=== PATIENT | female | born 1940 | race Two or more races ===

== ENCOUNTER 2018-10-17 13:00 | Observation (INO) | payer OTHER ==
[2018-10-17 13:06] VITALS: BMI 28.6
--- NOTE | 2018-10-17 13:44 | PDOC ---
History of Present Illness - History of Present Illness Initial Comments: 10/17/18 13:20 The patient is a 78 year old female with a PMH of leukemia, HTN, HLD, DM, CKD who presents with a 3 day h/o weakness, shortness of breath. Son @ bedside assists in history notes patient has 3 day h/o low blood pressure (90's/50's-60' s) with evaluation by her PMD, Dr. Pérez yesterday. Amlodipine discontinued and patient started on Candesartan. Also notes 25 pound weight loss over the last 1 year. Patient received call from Dr. Pérez's office today that patient had a low Hb and patient was instructed to come to the ED for further evaluation including transfusion. Patient denies active chest pain, lightheadedness, palpitations as well as bloody stools. NKDA Surgical: R knee replacement, abdominal hernia repair, C/S PMD: Dr. Pérez Oncology: Dr. Chandra <Annabelle Mcnulty - Last Filed: 10/17/18 17:02> <Lexie Buitrago - Last Filed: 10/17/18 18:29> - General Chief Complaint: Revisit, Lab Variance Stated Complaint: ANEMIA/LOW BP Time Seen by Provider: 10/17/18 13:09 Past History - Past Medical History Anemia: Yes COPD: No Diabetes: Yes HTN: Yes Hypercholesterolemia: Yes - Surgical History Abdominal Surgery: Yes (hernia) - Suicide/Smoking/Psychosocial Hx Smoking History: Never smoked Information on smoking cessation initiated: No Hx Alcohol Use: No Drug/Substance Use Hx: No <Annabelle Mcnulty - Last Filed: 10/17/18 17:02> <Lexie Buitrago - Last Filed: 10/17/18 18:29> - Past Medical History Allergies/Adverse Reactions: Allergies Allergy/AdvReac Type Severity Reaction Status Date / Time No Known Allergies Allergy Verified 10/17/18 13:06 Home Medications: Ambulatory Orders Aspirin 81 mg PO BID 10/17/18 Atorvastatin Ca [Lipitor] 40 mg PO HS 10/17/18 Candesartan Cilexetil [Atacand (Nf) -] 8 mg PO DAILY 10/17/18 Cholecalciferol (Vitamin D3) [Vitamin D3 -] 50,000 unit PO WEEKLY 10/17/18 Cyanocobalamin Vit B-12 Inj. [Redisol] 1,000 mcg IM MONTHLY 10/17/18 Duloxetine HCl [Cymbalta] 60 mg PO DAILY 10/17/18 Esomeprazole Magnesium [Nexium 24Hr] 40 mg PO DAILY 10/17/18 Ezetimibe [Zetia] 10 mg PO HS 10/17/18 Ferrous Gluconate [Fergon -] 324 mg PO DAILY 10/17/18 Glipizide [Glipizide ER] 2.5 mg PO DAILY 10/17/18 Icosapent Ethyl [Vascepa] 1 gm PO DAILY 10/17/18 Metformin HCl [Metformin HCl ER] 500 mg PO DAILY 10/17/18 Metoprolol Succinate 25 mg PO DAILY 10/17/18 Pramipexole Di-HCl [Mirapex] 0.5 mg PO BID 10/17/18 Sitagliptin Phosphate [Januvia] 50 mg PO DAILY 10/17/18 Solifenacin Succinate [Vesicare -] 5 mg PO DAILY 10/17/18 Review of Systems - Review of Systems Constitutional: No: Chills, Fever HEENTM: No: Blurred Vision, Recent change in vision Respiratory: Yes: Shortness of Breath. No: Cough Cardiac (ROS): Yes: Lightheadedness. No: Chest Pain, Palpitations, Syncope ABD/GI: No: Blood Streaked Bowels, Constipated, Diarrhea, Nausea, Vomiting <Hamlet,Annabelle - Last Filed: 10/17/18 17:02> *Physical Exam - Vital Signs Last Vital Signs Temp Pulse Resp BP Pulse Ox 98.2 F 75 18 159/45 L 99 10/17/18 13:04 10/17/18 13:04 10/17/18 13:04 10/17/18 13:04 10/17/18 13:04 - Physical Exam General Appearance: Yes: Nourished, Appropriately Dressed HEENT: positive: Normal Voice, Hearing Grossly Normal Neck: positive: Trachea midline, Supple Respiratory/Chest: positive: Lungs Clear, Normal Breath Sounds. negative: Labored Respiration, Rapid RR Cardiovascular: positive: S1, S2, Murmur Vascular Pulses: Dorsalis-Pedis (R): 2+, Doralis-Pedis (L): 2+ Gastrointestinal/Abdominal: positive: Normal Bowel Sounds, Soft Extremity: positive: Normal Capillary Refill, Normal Inspection Integumentary: positive: Normal Color, Dry, Warm Neurologic: positive: tool crib lead II-XII NML intact, Fully Oriented, Alert <Annabelle Mcnulty - Last Filed: 10/17/18 17:02> - Vital Signs Last Vital Signs Temp Pulse Resp BP Pulse Ox 98.2 F 75 18 159/45 L 99 10/17/18 13:04 10/17/18 13:04 10/17/18 13:04 10/17/18 13:04 10/17/18 13:04 <Lexie Buitrago - Last Filed: 10/17/18 18:29> Medical Decision Making - Medical Decision Making 10/17/18 13:44 78 year old female with shortness of breath, weakness and outside Hb reading of 6.0. VS unremarkable. PLAN: Will obtain T&S as patient has no history in EMR as well as FOBT to evaluate for GI bleed. Reassess. 10/17/18 16:51 Patient consented for transfusion FOBT pending 10/17/18 17:01 Case d/w Dr. Kelley - will admit for observation. <Annabelle Mcnulty - Last Filed: 10/17/18 17:02> - Medical Decision Making of note guaiac is positive, occult GIB vs malignancy with weight loss history protonix transfusion see attg note. 10/17/18 18:29 <Lexie Buitrago - Last Filed: 10/17/18 18:29> *DC/Admit/Observation/Transfer <Annabelle Mcnulty - Last Filed: 10/17/18 17:02> - Discharge Dispostion Decision to Admit order: Yes Decision to Admit order Date/Time: Decision to Admit Order Category Date Time Status Decision to Admit to Hospital Routine Admission 10/17/18 16:34 Ordered <Lexie Buitrago - Last Filed: 10/17/18 18:29> Diagnosis at time of Disposition: Anemia, Weakness - Discharge Dispostion Condition at time of disposition: Fair
--- NOTE | 2018-10-17 15:54 | PDOC ---
Documentation entered by Tish Hightower SCRIBE, acting as scribe for Lexie Buitrago MD. Lexie Buitrago MD: This documentation has been prepared by the zan, Tish Hightower SCRIBE, under my direction and personally reviewed by me in its entirety. I confirm that the documentation accurately reflects all work, treatment, procedures, and medical decision making performed by me. Attending Attestation - Resident Resident Name: Annabelle Mcnulty - ED Attending Attestation I have performed the following: I have examined & evaluated the patient, The case was reviewed & discussed with the resident, I agree w/resident's findings & plan - HPI HPI: 10/17/18 15:17 The patient is a 78 year old female with a significant past medical history of hypertension, hyperlipidemia, diabetes, CKD, and leukemia who presents to the emergency department with increased pallor, dizziness, shortness of breath and weakness for about 4 days. The patient states that she was seen by her PMD yesterday by which her Amlodipine meds were discontinued and labs were drawn. The patient states that her resulted blood work showed acute on chronic anemia, hemoglobin of 6.0, Hct 19 and was advised to come to the ED. Also notes 25 pound weight loss over the last 1 year. unsure of last colonoscopy, The patient denies any fever, chills, nausea, vomiting, diarrhea, constipation or urinary symptoms. She denies any chest pain, palpitations. GI: Dr Renee PCP: Dr Boudreaux. 10/17/18 16:37 - Physicial Exam PE: 10/17/18 15:54 Agree with the resident's HPI and PE as documented in the electronic medical record. NAD, well appearing, PERRL, EOMI, pale conjunctiva, anicteric; neck supple. lungs clear, Regular rate, soft holosystolic murmur. abdomen soft nontender. EMANUEL x4, no focal neuro deficits. No peripheral edema. +pallor rectal exam by resident - brown stool. guaiac positive. 10/17/18 16:33 10/17/18 18:27 10/17/18 18:27 - Medical Decision Making 10/17/18 16:36 History of physical examination as documented. Vital signs are normal, blood pressure is normotensive here. While in the outpatient setting she did have episode of hypotension as well as new onset of anemia. Patient denies any bloody stools and is unclear her last colonoscopy. Notably she is symptomatic with shortness of breath, dizziness and increased pallor over the last 3-4 days. Of note she also has 25 pound weight loss over the past year. Outpatient laboratory results from today were reviewed, new onset anemia is noted with hemoglobin of 6 and hematocrit of 19, iron panel is pending. IV line is placed by me, consented for 2 units of packed red blood cell transfusion for acute symptomatically anemia area will admit her observation of and workup of this anemia additional labs with normal coags. neg trop. EKG guaiac positive, +occult GIB. protonix ordered. likely lower with weight loss history, ?malignancy. admitting to medical service s/o to Dr Kelley transfusion, anemia w/u, GIB, and inpatient consults for definitive management. 10/17/18 18:25 10/17/18 18:28
--- NOTE | 2018-10-17 17:01 | HP ---
Admitting History and Physical - Primary Care Physician PCP: Nathen Pérez - Admission Chief Complaint: came in for shortness of breath History of Present Illness: The patient is a 78 year old female with a PMH of leukemia, HTN, HLD, DM, CKD who presents with a 3 day h/o weakness, shortness of breath. Son @ bedside assists in history notes patient has 3 day h/o low blood pressure (90's/50's-60' s) with evaluation by her PMD, Dr. Pérez yesterday. Amlodipine discontinued and patient started on Candesartan. Also notes 25 pound weight loss over the last 1 year. Patient received call from Dr. Pérez's office today that patient had a low Hb and patient was instructed to come to the ED for further evaluation including transfusion. per patient she has not had a pattetie and cannot eat plus she feels weak and tired went to her PMD who did blod work told her h/h low sent to the ER also her legs have been swelling amlodipine stopped no palpitions no chest pain History Source: Medical Record - Past Medical History Cardiovascular: Yes: HTN, Hyperlipdemia Renal/: Yes: Other (CKD) Endocrine: Yes: Diabetes Mellitus - Smoking History Smoking history: Never smoked - Alcohol/Substance Use Hx Alcohol Use: No Home Medications - Allergies Allergies/Adverse Reactions: Allergies Allergy/AdvReac Type Severity Reaction Status Date / Time No Known Allergies Allergy Verified 10/17/18 13:06 Review of Systems - Review of Systems Constitutional: reports: Unintentional Wgt. Loss, Weakness Physical Examination Vital Signs: Vital Signs Temperature 98.2 F 10/17/18 13:04 Pulse Rate 75 10/17/18 13:04 Respiratory Rate 18 10/17/18 13:04 Blood Pressure 159/45 L 10/17/18 13:04 O2 Sat by Pulse Oximetry (%) 99 10/17/18 13:04 Constitutional: Yes: Calm Eyes: Yes: Other (pallor) Cardiovascular: Yes: Regular Rate and Rhythm, S1, S2 Respiratory: Yes: CTA Bilaterally Gastrointestinal: Yes: Normal Bowel Sounds, Soft Edema: Yes Neurological: Yes: Alert, Oriented Problem List - Problems (1) Anemia Assessment/Plan: prbc 2 units iwth 40mg iv lasix in btw gi and heme consult given weight loss will get tumor marker iron panel protonix stool occult blood NPO for now tiill stool occult is checked doppler of legs to r/o dvt scd for dvt till stool occult done Code(s): D64.9 - ANEMIA, UNSPECIFIED (2) HTN (hypertension) Assessment/Plan: no amoldipine given leg edema Code(s): I10 - ESSENTIAL (PRIMARY) HYPERTENSION
[2018-10-17 17:04] LABS: INR 0.95 (0.83-1.09); PROTHROMBIN TIME (PATIENT) 11.2 SEC (9.7-13.0)
[2018-10-17 17:07] LABS: ACTIVATED PTT 30.4 SECONDS (25.2-36.5)
[2018-10-17] MEDS ORDERED: ACETAMINOPHEN 325 MG TABLET (FP) PO PRN (17:17)
[2018-10-17] MEDS ORDERED: FUROSEMIDE 40 MG/4 ML INJECTABLE VIAL IVPUSH ONE (17:21)
[2018-10-17] MEDS ORDERED: METOPROLOL TARTRATE 5 MG/5 ML VIAL IVPUSH PRN (17:24)
[2018-10-17] MEDS ORDERED: PANTOPRAZOLE SODIUM 40 MG VIAL IVPUSH ONE (18:27)
[2018-10-17] MEDS ORDERED: PANTOPRAZOLE SODIUM 40 MG VIAL ONE ×2 (18:53→21:33)
[2018-10-17] MEDS: PANTOPRAZOLE SODIUM 40 MG VIAL IVPUSH SCH (21:51)
--- NOTE | 2018-10-18 07:32 | CON.GI ---
Consult - History of Present Illness History of Present Illness: GI CONSULT DICTATED - CLEAR LIQUID DIET - IF H/H STABLE TOMORROW ADVANCE TO FULL LIQUID - PPI 40 MG IV QD - AVOID NSAID - HEME EVALUATION - WILL F/U WITH DR. JANSEN REGARDING PREVIOUS EGD / COLONOSCOPY FINDINGS - MAY NEED REPEAT EGD SATURDAY TO EXCLUDE PUD. - Past Medical History Cardio/Vascular: Yes: HTN, Hyperlipdemia Renal/: Yes: Other (CKD) Endocrine: Yes: Diabetes Mellitus - Alcohol/Substance Use Hx Alcohol Use: No - Smoking History Smoking history: Never smoked Home Medications - Allergies Allergies/Adverse Reactions: Allergies Allergy/AdvReac Type Severity Reaction Status Date / Time No Known Allergies Allergy Verified 10/17/18 13:06 - Home Medications Home Medications: Ambulatory Orders Aspirin 81 mg PO BID 10/17/18 Atorvastatin Ca [Lipitor] 40 mg PO HS 10/17/18 Candesartan Cilexetil [Atacand (Nf) -] 8 mg PO DAILY 10/17/18 Cholecalciferol (Vitamin D3) [Vitamin D3 -] 50,000 unit PO WEEKLY 10/17/18 Cyanocobalamin Vit B-12 Inj. [Redisol] 1,000 mcg IM MONTHLY 10/17/18 Duloxetine HCl [Cymbalta] 60 mg PO DAILY 10/17/18 Esomeprazole Magnesium [Nexium 24Hr] 40 mg PO DAILY 10/17/18 Ezetimibe [Zetia] 10 mg PO HS 10/17/18 Ferrous Gluconate [Fergon -] 324 mg PO DAILY 10/17/18 Glipizide [Glipizide ER] 2.5 mg PO DAILY 10/17/18 Icosapent Ethyl [Vascepa] 1 gm PO DAILY 10/17/18 Metformin HCl [Metformin HCl ER] 500 mg PO DAILY 10/17/18 Metoprolol Succinate 25 mg PO DAILY 10/17/18 Pramipexole Di-HCl [Mirapex] 0.5 mg PO BID 10/17/18 Sitagliptin Phosphate [Januvia] 50 mg PO DAILY 10/17/18 Solifenacin Succinate [Vesicare -] 5 mg PO DAILY 10/17/18 Physical Exam-GI Vital Signs: Vital Signs Temperature 98.3 F 10/18/18 02:00 Pulse Rate 71 10/18/18 02:00 Respiratory Rate 18 10/18/18 02:00 Blood Pressure 125/55 L 10/18/18 02:00 O2 Sat by Pulse Oximetry (%) 99 10/17/18 23:15 Labs: INR, PTT INR 0.95 (0.83-1.09) 10/17/18 16:28
[2018-10-18 07:51] LABS: HEMATOCRIT 24.6 % (32.4-45.2); MCH 27.3 pg (25.7-33.7); MCHC 32.5 g/dl (32.0-36.0); MEAN CELL VOLUME 84.1 fl (80-96); MEAN PLT VOLUME 9.4 fl (7.5-11.1); PLATELET COUNT 219 K/MM3 (134-434); RBC 2.93 M/mm3 (3.60-5.2); RDW 15.5 % (11.6-15.6); WHITE BLOOD COUNT 10.2 K/mm3 (4.0-10.0)
[2018-10-18 08:44] LABS: ALBUMIN 3.2 g/dl (3.4-5.0); BILIRUBIN,TOTAL 1.2 mg/dL (0.2-1); CALCIUM 8.8 mg/dL (8.5-10.1); CREATININE 0.7 mg/dL (0.55-1.3); MAGNESIUM 2.1 mg/dL (1.8-2.4); PHOSPHOROUS 3.8 mg/dL (2.5-4.9); POTASSIUM 3.9 mmol/L (3.5-5.1); TOT PROT 5.6 g/dl (6.4-8.2)
[2018-10-18] MEDS: PANTOPRAZOLE SODIUM 40 MG VIAL IVPUSH SCH ×2 (10:19→22:51)
[2018-10-18] MEDS ORDERED: DEXTROSE 5%-NORMAL SALINE 1,000 ML IV SCH (14:00)
--- NOTE | 2018-10-18 14:46 | CONSULT ---
Consult - text type - Consultation Consultation Note: The patient is a 78 year old female with a significant past medical history of hypertension, hyperlipidemia, diabetes, CKD, and ?? abnormality in CBC dating back yrs.had a BMBX in past who presents to the emergency department with increased pallor, dizziness, shortness of breath and weakness for about 4 days. The patient states that her resulted blood work showed acute on chronic anemia , hemoglobin of 6.0, Hct 19 and was advised to come to the ED. Also notes 25 pound weight loss over the last 1 year. unsure of last colonoscopy, The patient denies any fever, chills, nausea, vomiting, diarrhea, constipation or urinary symptoms. She denies any chest pain, palpitations. PMH HTN HLD DM CKD Anemia abnormal CBC worked up in past with BMBX by Dr. Chandra Last Vital Signs Temp Pulse Resp BP Pulse Ox 98.1 F 70 18 137/58 L 94 L 10/18/18 13:05 10/18/18 13:05 10/18/18 13:05 10/18/18 13:05 10/18/18 09:00 Cor: RSR, No murmurs, No gallops Lungs: Clear to P&A Abd: Soft, Normal bowel sounds, No organomegaly Ext:No significant edema Abnormal Lab Results 10/17/18 10/17/18 10/18/18 16:30 20:00 06:35 WBC 10.2 H RBC 2.93 L Hgb 8.0 L Hct 24.6 L D BUN Hemoglobin A1c % < 3.8 L Total Bilirubin Total Protein Albumin Serum Folate Crossmatch See Detail 10/18/18 06:35 WBC RBC Hgb Hct BUN 23 H Hemoglobin A1c % Total Bilirubin 1.2 H Total Protein 5.6 L Albumin 3.2 L Serum Folate 31 H Crossmatch Home Medication List Medication Instructions Recorded Confirmed Type Aspirin 81 mg PO BID 10/17/18 10/17/18 History Atorvastatin Ca [Lipitor] 40 mg PO HS 10/17/18 10/17/18 History Candesartan Cilexetil [Atacand 8 mg PO DAILY 10/17/18 10/17/18 History (Nf) -] Cholecalciferol (Vitamin D3) 50,000 unit PO WEEKLY 10/17/18 10/17/18 History [Vitamin D3 -] Cyanocobalamin Vit B-12 Inj. 1,000 mcg IM MONTHLY 10/17/18 10/17/18 History [Redisol] Duloxetine HCl [Cymbalta] 60 mg PO DAILY 10/17/18 10/17/18 History Esomeprazole Magnesium [Nexium 40 mg PO DAILY 10/17/18 10/17/18 History 24Hr] Ezetimibe [Zetia] 10 mg PO HS 10/17/18 10/17/18 History Ferrous Gluconate [Fergon -] 324 mg PO DAILY 10/17/18 10/17/18 History Glipizide [Glipizide ER] 2.5 mg PO DAILY 10/17/18 10/17/18 History Icosapent Ethyl [Vascepa] 1 gm PO DAILY 10/17/18 10/17/18 History Metformin HCl [Metformin HCl ER] 500 mg PO DAILY 10/17/18 10/17/18 History Metoprolol Succinate 25 mg PO DAILY 10/17/18 10/17/18 History Pramipexole Di-HCl [Mirapex] 0.5 mg PO BID 10/17/18 10/17/18 History Sitagliptin Phosphate [Januvia] 50 mg PO DAILY 10/17/18 10/17/18 History Solifenacin Succinate [Vesicare -] 5 mg PO DAILY 10/17/18 10/17/18 History Active Medications Generic Name Dose Route Start Last Admin Trade Name Freq PRN Reason Stop Dose Admin Acetaminophen 650 mg 10/17/18 17:17 Tylenol - PO Q6HPO PRN FEVER Dextrose/Sodium Chloride 1,000 mls @ 42 mls/hr 10/18/18 14:00 10/18/18 14:33 D5-Ns - IV 42 mls/hr ASDIR KARLA Administration Metoprolol Tartrate 5 mg 10/17/18 17:24 Lopressor Injection - IVPUSH Q4H PRN HYPERTENSION Pantoprazole Sodium 40 mg 10/17/18 22:00 10/18/18 10:19 Protonix Iv IVPUSH 40 mg BID KARLA Administration A/P 78 y/o patient with HTN, DM, HLD, CKD,anemia anemia--normocytic/normochromic Nl platelets/WBC check iron studies/ferritin/B12/folate/TSH/fT4/retic count GI work up> 10yrs. ago. willneed to repeat HAs constipation with PO iron. Replete iv iron based on iron studies f/u on BMBX results done previously for w/uof abnormalCBC
[2018-10-18 14:54] LABS: HEMATOCRIT 26.3 % (32.4-45.2); HEMOGLOBIN 8.5 GM/dL (10.7-15.3); MCH 26.8 pg (25.7-33.7); MCHC 32.4 g/dl (32.0-36.0); MEAN CELL VOLUME 82.9 fl (80-96); MEAN PLT VOLUME 9.4 fl (7.5-11.1); PLATELET COUNT 221 K/MM3 (134-434); RBC 3.17 M/mm3 (3.60-5.2); RDW 16.2 % (11.6-15.6); WHITE BLOOD COUNT 10.5 K/mm3 (4.0-10.0)
--- NOTE | 2018-10-18 15:44 | PN ---
Progress Note, Physician Chief Complaint: Anemia Hypertension History of Present Illness: Previous notes and events reviewed awake and alert NAD s/p 2U PRBC transfusion denies abdominal pain - Current Medication List Current Medications: Active Medications Acetaminophen (Tylenol -) 650 mg PO Q6HPO PRN PRN Reason: FEVER Dextrose/Sodium Chloride (D5-Ns -) 1,000 mls @ 42 mls/hr IV ASDIR [facility] Last Admin: 10/18/18 14:33 Dose: 42 mls/hr Metoprolol Tartrate (Lopressor Injection -) 5 mg IVPUSH Q4H PRN PRN Reason: HYPERTENSION Pantoprazole Sodium (Protonix Iv) 40 mg IVPUSH BID [facility] Last Admin: 10/18/18 10:19 Dose: 40 mg - Objective Vital Signs: Vital Signs Temperature 98.1 F 10/18/18 13:05 Pulse Rate 70 10/18/18 13:05 Respiratory Rate 18 10/18/18 13:05 Blood Pressure 137/58 L 10/18/18 13:05 O2 Sat by Pulse Oximetry (%) 94 L 10/18/18 09:00 Constitutional: Yes: No Distress, Calm Eyes: Yes: Conjunctiva Clear HENT: Yes: Atraumatic Cardiovascular: Yes: Regular Rate and Rhythm Respiratory: Yes: Regular, CTA Bilaterally Gastrointestinal: Yes: Normal Bowel Sounds, Soft Musculoskeletal: Yes: Muscle Weakness Extremities: Yes: WNL Edema: No Neurological: Yes: Alert, Oriented Psychiatric: Yes: Alert, Oriented Labs: CBC, BMP 10/18/18 14:10 10/18/18 06:35 INR, PTT INR 0.95 (0.83-1.09) 10/17/18 16:28 Problem List - Problems (1) Anemia Assessment/Plan: -GI and Hematology on board -s/p 2U PRBC transfusion -Hg 8.5 -monitor Hg daily -Stool OB positive -Iron Panel pending -Pantoprazole Code(s): D64.9 - ANEMIA, UNSPECIFIED (2) HTN (hypertension) Assessment/Plan: -Lopressor IVPB for HR >110bpm PRN Code(s): I10 - ESSENTIAL (PRIMARY) HYPERTENSION (3) Diabetes mellitus Assessment/Plan: -BGM ACHS -ISS -D5 NS at 42cc/hr Code(s): E11.9 - TYPE 2 DIABETES MELLITUS WITHOUT COMPLICATIONS Assessment/Plan see problem list dvt ppx
--- NOTE | 2018-10-18 19:05 | CONS ---
DATE OF CONSULTATION: DATE OF DICTATION: 10/18/2018 GASTROENTEROLOGY CONSULTATION The patient is a 78-year-old female with a past medical history of leukemia, hypertension, hyperlipidemia, diabetes, chronic kidney disease, who presents to the hospital with a 3-day history of weakness and shortness of breath. She was seen by her primary medical doctor, Dr. Pérez, and was told to come to the emergency room for anemia evaluation. She has also lost weight, approximately 25 pounds over the past year. The patient denies any abdominal pain, nausea, vomiting, hematemesis, melena or hematochezia. Apparently she was seen by Dr. Renee and had an upper endoscopy and a colonoscopy as an outpatient a couple of years ago. The son cannot give me further history on this, and there is no report in this EMR. PAST MEDICAL AND SURGICAL HISTORY: As listed in the HPI. ALLERGIES: No known drug allergies. SOCIAL HISTORY: She does not drink, smoke or use drugs. FAMILY HISTORY: No history of GI or gynecological malignancy. PHYSICAL EXAMINATION: Vital Signs: Temperature 98, pulse 70, blood pressure 137/58, respiratory rate 12. General: In no acute distress. HEENT: Anicteric sclerae. Cardiovascular: S1/S2. Regular rate and rhythm. Lungs: Bilaterally clear to auscultation. Abdomen: Soft and nontender. Extremities: No edema. LABORATORY DATA: White blood cell count 10.2, hemoglobin 8.5, hematocrit 26. Earlier in the day it was hemoglobin 8 and hematocrit 24. MCV 82, platelet count 221. INR 0.95. Sodium 130, potassium 3.9, BUN 23, creatinine 0.7, glucose 98, total bilirubin 1.2, AST 18, ALT 15, alkaline phosphatase 82. CEA and CA 19-9 are pending. Stool for occult blood is positive. IMAGING: She had no imaging done during this hospitalization. IMPRESSION: Normocytic anemia without sign of an overt gastrointestinal bleed, also with a history of leukemia and chronic kidney disease. I suspect that her current anemia may be multifactorial, with leukemia, chronic kidney disease and perhaps underlying peptic ulcer disease, angioectasia or colonic polyps as contributing factors. RECOMMENDATION: Clear liquid diet today. If her hemoglobin were to remain stable, she can be started on a full liquid diet tomorrow and can be advanced as tolerated to a regular diet. Trend hemoglobin and hematocrit daily while hospitalized. Protonix 40 mg p.o. daily. Hematology evaluation. We will need to obtain Dr. Renee's records regarding her previous endoscopic examination. She will likely need repeat endoscopic evaluation. I will follow this patient with you. DO CAMDEN HERNANDEZ/[id number]
--- NOTE | 2018-10-18 20:18 | CONSULT ---
Consult Consult Specialty:: endocrine Referred by:: chester hernandez md Reason for Consultation:: diabetes mellitus type 2 - History of Present Illness Chief Complaint: weak dizzy History of Present Illness: 78 year old female with a PMH of leukemia, HTN, HLD, DM, CKD who presents with weakness, shortness of breath. history notes patient has 3 day h/o low blood pressure (90's/50's-60's) recent adjustment bp meds by cardiology. Amlodipine discontinued and patient started on Candesartan. Also notes 25 pound weight loss over the last 1 year. blood work done day of admission showed hb 6,patient advised to present to ed for evaluation and transfusion. - Past Medical History Cardio/Vascular: Yes: HTN, Hyperlipdemia Renal/: Yes: Other (CKD) Endocrine: Yes: Diabetes Mellitus - Alcohol/Substance Use Hx Alcohol Use: No - Smoking History Smoking history: Never smoked Home Medications - Allergies Allergies/Adverse Reactions: Allergies Allergy/AdvReac Type Severity Reaction Status Date / Time No Known Allergies Allergy Verified 10/17/18 13:06 - Home Medications Home Medications: Ambulatory Orders Aspirin 81 mg PO BID 10/17/18 Atorvastatin Ca [Lipitor] 40 mg PO HS 10/17/18 Candesartan Cilexetil [Atacand (Nf) -] 8 mg PO DAILY 10/17/18 Cholecalciferol (Vitamin D3) [Vitamin D3 -] 50,000 unit PO WEEKLY 10/17/18 Cyanocobalamin Vit B-12 Inj. [Redisol] 1,000 mcg IM MONTHLY 10/17/18 Duloxetine HCl [Cymbalta] 60 mg PO DAILY 10/17/18 Esomeprazole Magnesium [Nexium 24Hr] 40 mg PO DAILY 10/17/18 Ezetimibe [Zetia] 10 mg PO HS 10/17/18 Ferrous Gluconate [Fergon -] 324 mg PO DAILY 10/17/18 Glipizide [Glipizide ER] 2.5 mg PO DAILY 10/17/18 Icosapent Ethyl [Vascepa] 1 gm PO DAILY 10/17/18 Metformin HCl [Metformin HCl ER] 500 mg PO DAILY 10/17/18 Metoprolol Succinate 25 mg PO DAILY 10/17/18 Pramipexole Di-HCl [Mirapex] 0.5 mg PO BID 10/17/18 Sitagliptin Phosphate [Januvia] 50 mg PO DAILY 10/17/18 Solifenacin Succinate [Vesicare -] 5 mg PO DAILY 10/17/18 Review of Systems - Review of Systems Constitutional: reports: Lethargy, Weakness Eyes: reports: No Symptoms HENT: reports: Hearing Loss Neck: reports: Decreased ROM, Stiffness Cardiovascular: reports: Shortness of Breath Respiratory: reports: Exercise Intolerance, SOB on Exertion Gastrointestinal: reports: Bloating, Nausea Genitourinary: reports: No Symptoms Breasts: reports: No Symptoms Reported Musculoskeletal: reports: Joint Swelling, Muscle Pain, Muscle Cramps Integumentary: reports: No Symptoms Neurological: reports: Unsteady Gait, Weakness Endocrine: reports: Unexplained Weight Loss Physical Exam Vital Signs: Vital Signs Temperature 98.1 F 10/18/18 18:00 Pulse Rate 89 10/18/18 18:00 Respiratory Rate 20 10/18/18 18:00 Blood Pressure 151/68 10/18/18 18:00 O2 Sat by Pulse Oximetry (%) 94 L 10/18/18 09:00 Constitutional: Yes: Anxious Eyes: Yes: EOM Intact HENT: Yes: Normocephalic Neck: Yes: Trachea Midline Cardiovascular: Yes: Regular Rate and Rhythm Respiratory: Yes: CTA Bilaterally Gastrointestinal: Yes: Normal Bowel Sounds ...Rectal Exam: Yes: Guaiac Positive Renal/: Yes: WNL Extremities: Yes: WNL Edema: No Peripheral Pulses WNL: Yes Integumentary: Yes: WNL Neurological: Yes: Alert, Oriented Labs: CBC, BMP 10/18/18 14:10 10/18/18 06:35 Problem List - Problems (1) Anemia Code(s): D64.9 - ANEMIA, UNSPECIFIED (2) Diabetes mellitus Code(s): E11.9 - TYPE 2 DIABETES MELLITUS WITHOUT COMPLICATIONS (3) HTN (hypertension) Code(s): I10 - ESSENTIAL (PRIMARY) HYPERTENSION (4) Weakness Code(s): R53.1 - WEAKNESS (5) Laceration of right little finger Code(s): S61.216A - LAC W/O FB OF R LITTLE FINGER W/O DAMAGE TO NAIL, INIT Assessment/Plan Current Active Problems Anemia (Acute) Diabetes mellitus (Acute) HTN (hypertension) (Acute) Weakness (Acute) Abnormal Lab Results 10/17/18 10/17/18 10/18/18 16:30 20:00 06:35 WBC 10.2 H RBC 2.93 L Hgb 8.0 L Hct 24.6 L D RDW BUN Hemoglobin A1c % < 3.8 L Total Bilirubin Total Protein Albumin Serum Folate Crossmatch See Detail 10/18/18 10/18/18 06:35 14:10 WBC 10.5 H RBC 3.17 L Hgb 8.5 L Hct 26.3 L RDW 16.2 H BUN 23 H Hemoglobin A1c % Total Bilirubin 1.2 H Total Protein 5.6 L Albumin 3.2 L Serum Folate 31 H Crossmatch Laboratory Results - last 24 hr 10/17/18 10/17/18 10/18/18 16:30 20:00 06:35 WBC 10.2 H RBC 2.93 L Hgb 8.0 L Hct 24.6 L D MCV 84.1 MCH 27.3 MCHC 32.5 RDW 15.5 Plt Count 219 MPV 9.4 Sodium Potassium Chloride Carbon Dioxide Anion Gap BUN Creatinine Est GFR (CKD-EPI)AfAm Est GFR (CKD-EPI)NonAf POC Glucometer Random Glucose Hemoglobin A1c % < 3.8 L Calcium Phosphorus Magnesium Ferritin Total Bilirubin AST ALT Alkaline Phosphatase Total Protein Albumin Serum Folate Blood Type A POSITIVE Antibody Screen Negative Crossmatch See Detail 10/18/18 10/18/18 10/18/18 06:35 06:35 14:10 WBC 10.5 H RBC 3.17 L Hgb 8.5 L Hct 26.3 L MCV 82.9 MCH 26.8 MCHC 32.4 RDW 16.2 H Plt Count 221 MPV 9.4 Sodium 138 Potassium 3.9 Chloride 101 Carbon Dioxide 29 Anion Gap 8 BUN 23 H Creatinine 0.7 Est GFR (CKD-EPI)AfAm 96.18 Est GFR (CKD-EPI)NonAf 82.99 POC Glucometer Random Glucose 98 Hemoglobin A1c % Calcium 8.8 Phosphorus 3.8 Magnesium 2.1 Ferritin 8.0 Total Bilirubin 1.2 H AST 18 ALT 15 Alkaline Phosphatase 82 Total Protein 5.6 L Albumin 3.2 L Serum Folate 31 H Blood Type Antibody Screen Crossmatch 10/18/18 16:08 WBC RBC Hgb Hct MCV MCH MCHC RDW Plt Count MPV Sodium Potassium Chloride Carbon Dioxide Anion Gap Creatinine Est GFR (CKD-EPI)AfAm Est GFR (CKD-EPI)NonAf POC Glucometer 121 Random Glucose Hemoglobin A1c % Calcium Phosphorus Magnesium Ferritin Total Bilirubin AST ALT Alkaline Phosphatase Total Protein Albumin Serum Folate Blood Type Antibody Screen Crossmatch plan: bg bid ac gi consult ct abdpelvic iron studies
[2018-10-18] MEDS: PRAMIPEXOLE DIHYDROCHLORIDE 0.25 MG TABLET PO SCH (22:51)
[2018-10-18] MEDS: ATORVASTATIN CA 40 MG TABLET (FP) PO SCH (22:51)
[2018-10-19 06:37] LABS: SERUM IRON SATURATION 55 % (15-55); TOTAL IRON BINDING CAPACITY 379 ug/dL (250-450); UIBC 170 ug/dL (118-369)
--- NOTE | 2018-10-19 07:43 | PN.GI ---
GI Progress Note Subjective: FAMILY AT THE BEDSIDE - NO REPORT OF MELENA/ BRBR/ ABD PAIN - Objective Vital Signs: Vital Signs Temperature 98.8 F 10/19/18 06:00 Pulse Rate 88 10/19/18 06:00 Respiratory Rate 20 10/19/18 06:00 Blood Pressure 147/57 L 10/19/18 06:00 O2 Sat by Pulse Oximetry (%) 94 L 10/18/18 21:00 Labs: CBC, BMP 10/18/18 14:10 10/18/18 06:35 INR, PTT INR 0.95 (0.83-1.09) 10/17/18 16:28 Problem List - Problems (1) Anemia Assessment/Plan: ADVANCE DIET TOLERATED REPEAT CBC IN THE AM IF STABLE SHE CAN BE DISCHARGED WITH OUTPT GI F/U FOR DIAGNOSTIC EGD / COLONOSCOPY . C/W PPI 40 MG PO QD AVOID NSAID CT SCAN REVIEWED Code(s): D64.9 - ANEMIA, UNSPECIFIED
[2018-10-19 07:56] LABS: BASO % 0.3 % (0-2.0); EOS % 0.7 % (0-4.5); HEMATOCRIT 27.9 % (32.4-45.2); HEMOGLOBIN 8.8 GM/dL (10.7-15.3); LYMPH % 28.9 % (8-40); MCH 26.7 pg (25.7-33.7); MCHC 31.4 g/dl (32.0-36.0); MEAN CELL VOLUME 84.9 fl (80-96); MEAN PLT VOLUME 9.4 fl (7.5-11.1); MONO % 7.2 % (3.8-10.2); NEUT % 62.9 % (42.8-82.8); PLATELET COUNT 239 K/MM3 (134-434); RBC 3.29 M/mm3 (3.60-5.2); RDW 16.2 % (11.6-15.6); WHITE BLOOD COUNT 12.1 K/mm3 (4.0-10.0)
[2018-10-19 08:08] LABS: CARCINOEMBRYONIC ANTIGEN 2.3 ng/mL (0.0-4.7)
[2018-10-19 08:55] LABS: ALBUMIN 3.4 g/dl (3.4-5.0); BILIRUBIN,TOTAL 0.6 mg/dL (0.2-1); CALCIUM 8.9 mg/dL (8.5-10.1); CREATININE 0.7 mg/dL (0.55-1.3); POTASSIUM 3.9 mmol/L (3.5-5.1); TOT PROT 6.2 g/dl (6.4-8.2)
[2018-10-19] MEDS: METOPROLOL TARTRATE 25 MG TABLET (FP) PO SCH (09:19)
[2018-10-19] MEDS: LOSARTAN POTASSIUM 50 MG TABLET (FP) PO SCH (09:19)
[2018-10-19] MEDS: PANTOPRAZOLE SODIUM 40 MG VIAL IVPUSH SCH ×2 (09:19→21:52)
[2018-10-19] MEDS: DULoxetine HCL 30 MG CAPSULE.DR PO SCH (09:19)
--- NOTE | 2018-10-19 12:30 | PN ---
Progress Note, Physician Chief Complaint: Anemia Hypertension History of Present Illness: Previous notes and events reviewed awake and alert NAD Hg 8.8 denies abdominal pain c/o cough - Current Medication List Current Medications: Active Medications Acetaminophen (Tylenol -) 650 mg PO Q6HPO PRN PRN Reason: FEVER Atorvastatin Calcium (Lipitor -) 40 mg PO HS [facility] Last Admin: 10/18/18 22:51 Dose: 40 mg Duloxetine HCl (Cymbalta -) 30 mg PO DAILY [facility] Last Admin: 10/19/18 09:19 Dose: 30 mg Dextrose/Sodium Chloride (D5-Ns -) 1,000 mls @ 42 mls/hr IV ASDIR [facility] Last Admin: 10/18/18 14:33 Dose: 42 mls/hr Losartan Potassium (Cozaar -) 50 mg PO DAILY [facility] Last Admin: 10/19/18 09:19 Dose: 50 mg Metoprolol Tartrate (Lopressor -) 25 mg PO DAILY [facility] Last Admin: 10/19/18 09:19 Dose: 25 mg Pantoprazole Sodium (Protonix Iv) 40 mg IVPUSH BID [facility] Last Admin: 10/19/18 09:19 Dose: 40 mg Pramipexole Dihydrochloride (Mirapex -) 0.5 mg PO HS [facility] Last Admin: 10/18/18 22:51 Dose: 0.5 mg - Objective Vital Signs: Vital Signs Temperature 98.4 F 10/19/18 10:00 Pulse Rate 86 10/19/18 10:00 Respiratory Rate 20 10/19/18 10:00 Blood Pressure 149/70 10/19/18 10:00 O2 Sat by Pulse Oximetry (%) 94 L 10/18/18 21:00 Constitutional: Yes: No Distress, Calm Eyes: Yes: Conjunctiva Clear HENT: Yes: Atraumatic Cardiovascular: Yes: Regular Rate and Rhythm Respiratory: Yes: Regular, Diminished Gastrointestinal: Yes: Normal Bowel Sounds, Soft Musculoskeletal: Yes: WNL Extremities: Yes: WNL Edema: No Neurological: Yes: Alert, Oriented Psychiatric: Yes: Alert, Oriented Labs: CBC, BMP 10/19/18 07:15 10/19/18 07:15 INR, PTT INR 0.95 (0.83-1.09) 10/17/18 16:28 - ....Imaging X-ray: Report Reviewed Problem List - Problems (1) Anemia Assessment/Plan: -GI and Hematology on board -s/p 2U PRBC transfusion -Hg 8.8 -monitor Hg daily -Stool OB positive -Iron Panel reviewed -Pantoprazole Code(s): D64.9 - ANEMIA, UNSPECIFIED (2) HTN (hypertension) Assessment/Plan: -Metoprolol Code(s): I10 - ESSENTIAL (PRIMARY) HYPERTENSION (3) Diabetes mellitus Assessment/Plan: -BGM ACHS -ISS -Metformin and Januvia Code(s): E11.9 - TYPE 2 DIABETES MELLITUS WITHOUT COMPLICATIONS Assessment/Plan see problem list dvt ppx
[2018-10-19] MEDS ORDERED: CHOLECALCIFEROL (VIT D3) 400 UNIT (10 MCG) TABLET PO SCH (14:15)
[2018-10-19] MEDS ORDERED: PT OWN MED DRAWER 7, Y5N ONE (18:43)
--- NOTE | 2018-10-19 19:27 | PN ---
Progress Note, Physician Chief Complaint: feeling better has mild cough - Current Medication List Current Medications: Active Medications Acetaminophen (Tylenol -) 650 mg PO Q6HPO PRN PRN Reason: FEVER Aspirin (Asa -) 81 mg PO BID [facility] Atorvastatin Calcium (Lipitor -) 40 mg PO HS [facility] Last Admin: 10/18/18 22:51 Dose: 40 mg Cholecalciferol (Vitamin D3 -) 50,000 unit PO WEEKLY [facility] Duloxetine HCl (Cymbalta -) 30 mg PO DAILY [facility] Last Admin: 10/19/18 09:19 Dose: 30 mg Ezetimibe (Zetia -) 10 mg PO HS [facility] Glipizide (Glucotrol Xl -) 2.5 mg PO DAILY@0700 [facility] Losartan Potassium (Cozaar -) 50 mg PO DAILY [facility] Last Admin: 10/19/18 09:19 Dose: 50 mg Metformin HCl (Glucophage Xr -) 500 mg PO DAILY@0700 [facility] Metoprolol Tartrate (Lopressor -) 25 mg PO DAILY [facility] Last Admin: 10/19/18 09:19 Dose: 25 mg Non-Formulary Medication (Icosapent Ethyl [Vascepa]) 1 gm PO DAILY [facility] Pantoprazole Sodium (Protonix Iv) 40 mg IVPUSH BID [facility] Last Admin: 10/19/18 09:19 Dose: 40 mg Pramipexole Dihydrochloride (Mirapex -) 0.5 mg PO HS [facility] Last Admin: 10/18/18 22:51 Dose: 0.5 mg Sitagliptin Phosphate (Januvia -) 50 mg PO DAILY@0700 [facility] Solifenacin (Vesicare -) 5 mg PO DAILY [facility] - Objective Vital Signs: Vital Signs Temperature 98.2 F 10/19/18 18:00 Pulse Rate 81 10/19/18 18:00 Respiratory Rate 20 10/19/18 18:00 Blood Pressure 116/52 L 10/19/18 18:00 O2 Sat by Pulse Oximetry (%) 98 10/19/18 09:00 Constitutional: Yes: Calm Eyes: Yes: EOM Intact HENT: Yes: Normocephalic Neck: Yes: Trachea Midline Cardiovascular: Yes: Regular Rate and Rhythm Respiratory: Yes: CTA Bilaterally Gastrointestinal: Yes: Normal Bowel Sounds ...Rectal Exam: Yes: Deferred Genitourinary: Yes: WNL Musculoskeletal: Yes: Back Pain, Muscle Weakness Edema: No Neurological: Yes: Alert, Oriented Labs: CBC, BMP 10/19/18 07:15 10/19/18 07:15 INR, PTT INR 0.95 (0.83-1.09) 10/17/18 16:28 Problem List - Problems (1) Anemia Code(s): D64.9 - ANEMIA, UNSPECIFIED (2) Diabetes mellitus Code(s): E11.9 - TYPE 2 DIABETES MELLITUS WITHOUT COMPLICATIONS (3) HTN (hypertension) Code(s): I10 - ESSENTIAL (PRIMARY) HYPERTENSION (4) Weakness Code(s): R53.1 - WEAKNESS (5) Laceration of right little finger Code(s): S61.216A - LAC W/O FB OF R LITTLE FINGER W/O DAMAGE TO NAIL, INIT Assessment/Plan Current Active Problems Anemia (Acute) Diabetes mellitus (Acute) HTN (hypertension) (Acute) Weakness (Acute) Abnormal Lab Results 10/18/18 10/19/18 10/19/18 06:35 07:15 07:15 WBC 12.1 H RBC 3.29 L Hgb 8.8 L Hct 27.9 L MCHC 31.4 L RDW 16.2 H Anion Gap 6 L Random Glucose 143 H Iron 209 H Total Protein 6.2 L Laboratory Results - last 24 hr 10/18/18 10/18/18 10/18/18 06:35 06:35 22:56 WBC RBC Hgb Hct MCV MCH MCHC RDW Plt Count MPV Absolute Neuts (auto) Neutrophils % Lymphocytes % Monocytes % Eosinophils % Basophils % Nucleated RBC % Sodium Potassium Chloride Carbon Dioxide Anion Gap BUN Creatinine Est GFR (CKD-EPI)AfAm Est GFR (CKD-EPI)NonAf POC Glucometer 95 Random Glucose Calcium Iron 209 H TIBC 379 Iron Saturation 55 Total Bilirubin AST ALT Alkaline Phosphatase LD Total Total Protein Albumin Carcinoembryonic Ag 2.3 CA 19-9 Antigen 7 Direct Antiglob Test 10/19/18 10/19/18 10/19/18 06:19 07:15 07:15 WBC 12.1 H RBC 3.29 L Hgb 8.8 L Hct 27.9 L MCV 84.9 MCH 26.7 MCHC 31.4 L RDW 16.2 H Plt Count 239 MPV 9.4 Absolute Neuts (auto) 7.6 Neutrophils % 62.9 D Lymphocytes % 28.9 D Monocytes % 7.2 Eosinophils % 0.7 Basophils % 0.3 Nucleated RBC % 0 Sodium 140 Potassium 3.9 Chloride 104 Carbon Dioxide 30 Anion Gap 6 L BUN 16 Creatinine 0.7 Est GFR (CKD-EPI)AfAm 96.18 Est GFR (CKD-EPI)NonAf 82.99 POC Glucometer 143 Random Glucose 143 H Calcium 8.9 Iron TIBC Iron Saturation Total Bilirubin 0.6 AST 16 ALT 15 Alkaline Phosphatase 91 LD Total 199 Total Protein 6.2 L Albumin 3.4 Carcinoembryonic Ag CA 19-9 Antigen Direct Antiglob Test 10/19/18 10/19/18 10/19/18 07:15 11:44 16:45 WBC RBC Hgb Hct MCV MCH MCHC RDW Plt Count MPV Absolute Neuts (auto) Neutrophils % Lymphocytes % Monocytes % Eosinophils % Basophils % Nucleated RBC % Sodium Potassium Chloride Carbon Dioxide Anion Gap BUN Creatinine Est GFR (CKD-EPI)AfAm Est GFR (CKD-EPI)NonAf POC Glucometer 153 169 Random Glucose Calcium Iron TIBC Iron Saturation Total Bilirubin AST ALT Alkaline Phosphatase LD Total Total Protein Albumin Carcinoembryonic Ag CA 19-9 Antigen Direct Antiglob Test Negative plan: bgm as ordered egd / colonoscopy \as outpatient xray pending
[2018-10-19] MEDS: ATORVASTATIN CA 40 MG TABLET (FP) PO SCH (21:51)
[2018-10-19] MEDS: ASPIRIN 81 MG CHEWABLE TABLETS PO SCH (21:51)
[2018-10-19] MEDS: PRAMIPEXOLE DIHYDROCHLORIDE 0.25 MG TABLET PO SCH (21:51)
[2018-10-19] MEDS: EZETIMIBE 10 MG TABLET (FP) PO SCH (21:52)
[2018-10-20] MEDS: sitaGLIPtin PHOSPHATE 50 MG TABLET PO SCH (06:46)
[2018-10-20] MEDS: glipiZIDE-XL 2.5 MG TAB.ER.24 PO SCH (06:46)
[2018-10-20 07:49] LABS: HEMATOCRIT 28.1 % (32.4-45.2); HEMOGLOBIN 8.9 GM/dL (10.7-15.3); MCH 26.5 pg (25.7-33.7); MCHC 31.7 g/dl (32.0-36.0); MEAN CELL VOLUME 83.6 fl (80-96); MEAN PLT VOLUME 9.4 fl (7.5-11.1); PLATELET COUNT 292 K/MM3 (134-434); RBC 3.35 M/mm3 (3.60-5.2); RDW 16.1 % (11.6-15.6); WHITE BLOOD COUNT 16.8 K/mm3 (4.0-10.0)
[2018-10-20 08:00] LABS: ALBUMIN 3.3 g/dl (3.4-5.0); BILIRUBIN,TOTAL 0.5 mg/dL (0.2-1); CALCIUM 8.7 mg/dL (8.5-10.1); CREATININE 0.9 mg/dL (0.55-1.3); POTASSIUM 3.8 mmol/L (3.5-5.1)
[2018-10-20] MEDS ORDERED: PT OWN MED DRAWER 7, Y5N ONE (08:47)
[2018-10-20] MEDS: DULoxetine HCL 30 MG CAPSULE.DR PO SCH (09:01)
[2018-10-20] MEDS: ASPIRIN 81 MG CHEWABLE TABLETS PO SCH ×2 (09:01→22:52)
[2018-10-20] MEDS: LOSARTAN POTASSIUM 50 MG TABLET (FP) PO SCH (09:01)
[2018-10-20] MEDS: SOLIFENACIN SUCCINATE 5 MG TAB PO SCH (09:01)
[2018-10-20] MEDS: PANTOPRAZOLE SODIUM 40 MG VIAL IVPUSH SCH ×2 (09:02→22:52)
[2018-10-20] MEDS: METOPROLOL TARTRATE 25 MG TABLET (FP) PO SCH (09:02)
--- NOTE | 2018-10-20 09:29 | PN.GI ---
GI Progress Note Subjective: DOING OK TODAY - DENIES ABDOMINAL PAIN / N/V/ MELENA / BRBR - Objective Vital Signs: Vital Signs Temperature 98.3 F 10/20/18 06:00 Pulse Rate 2 L 10/20/18 06:00 Respiratory Rate 20 10/20/18 06:00 Blood Pressure 139/57 L 10/20/18 06:00 O2 Sat by Pulse Oximetry (%) 98 10/19/18 21:00 Constitutional: Well Nourished, No Distress, Calm Eyes: Yes: WNL HENT: Yes: WNL Neck: Yes: WNL Cardiovascular: Yes: WNL, Regular Rate and Rhythm Respiratory: Yes: WNL, Regular, CTA Bilaterally Gastrointestinal Inspection: Yes: WNL ...Auscultate: Yes: Normoactive Bowel Sounds Musculoskeletal: Yes: WNL Extremities: Yes: WNL Edema: No Labs: CBC, BMP 10/20/18 06:30 10/20/18 06:30 INR, PTT INR 0.95 (0.83-1.09) 10/17/18 16:28 Problem List - Problems (1) Anemia Assessment/Plan: H/H STABLE ; LEUKOCYTOSIS NOTED - EVALUATION PER PRIMARY MEDICAL TEAM. DIET TOLERATED OUTPT GI F/U FOR DIAGNOSTIC EGD / COLONOSCOPY . C/W PPI 40 MG PO QD AVOID NSAID \ Code(s): D64.9 - ANEMIA, UNSPECIFIED
[2018-10-20] MEDS ORDERED: CANDESARTAN CILEXETIL 8 MG PO SCH (10:00)
[2018-10-20] MEDS ORDERED: PATIENT'S OWN MEDICATION (NON-FORMULARY) (Icosapent Ethyl [Vascepa] 1 GM) PO SCH (10:00)
--- NOTE | 2018-10-20 14:12 | PN ---
Progress Note, Physician Chief Complaint: Anemia Hypertension History of Present Illness: Previous notes and events reviewed awake and alert NAD Hg 8.9 denies abdominal pain wbc with uptrend now 16.8 - Current Medication List Current Medications: Active Medications Acetaminophen (Tylenol -) 650 mg PO Q6HPO PRN PRN Reason: FEVER Aspirin (Asa -) 81 mg PO BID [facility] Last Admin: 10/20/18 09:01 Dose: 81 mg Atorvastatin Calcium (Lipitor -) 40 mg PO HS [facility] Last Admin: 10/19/18 21:51 Dose: 40 mg Cholecalciferol (Vitamin D3 -) 50,000 unit PO WEEKLY [facility] Duloxetine HCl (Cymbalta -) 30 mg PO DAILY [facility] Last Admin: 10/20/18 09:01 Dose: 30 mg Ezetimibe (Zetia -) 10 mg PO HS [facility] Last Admin: 10/19/18 21:52 Dose: 10 mg Glipizide (Glucotrol Xl -) 2.5 mg PO DAILY@0700 [facility] Last Admin: 10/20/18 06:46 Dose: 2.5 mg Losartan Potassium (Cozaar -) 50 mg PO DAILY [facility] Last Admin: 10/20/18 09:01 Dose: 50 mg Metformin HCl (Glucophage Xr -) 500 mg PO DAILY@0700 [facility] Last Admin: 10/20/18 06:46 Dose: 500 mg Metoprolol Tartrate (Lopressor -) 25 mg PO DAILY [facility] Last Admin: 10/20/18 09:02 Dose: 25 mg Non-Formulary Medication (Icosapent Ethyl [Vascepa]) 1 gm PO DAILY [facility] Pantoprazole Sodium (Protonix Iv) 40 mg IVPUSH BID [facility] Last Admin: 10/20/18 09:02 Dose: 40 mg Pramipexole Dihydrochloride (Mirapex -) 0.5 mg PO HS [facility] Last Admin: 10/19/18 21:51 Dose: 0.5 mg Sitagliptin Phosphate (Januvia -) 50 mg PO DAILY@0700 [facility] Last Admin: 10/20/18 06:46 Dose: 50 mg Solifenacin (Vesicare -) 5 mg PO DAILY [facility] Last Admin: 10/20/18 09:01 Dose: 5 mg - Objective Vital Signs: Vital Signs Temperature 98 F 10/20/18 09:00 Pulse Rate 74 10/20/18 09:00 Respiratory Rate 20 10/20/18 09:00 Blood Pressure 134/62 10/20/18 09:00 O2 Sat by Pulse Oximetry (%) 98 10/19/18 21:00 Constitutional: Yes: No Distress, Calm Eyes: Yes: Conjunctiva Clear HENT: Yes: Atraumatic Cardiovascular: Yes: Regular Rate and Rhythm Respiratory: Yes: Regular, CTA Bilaterally Gastrointestinal: Yes: Normal Bowel Sounds, Soft Musculoskeletal: Yes: Muscle Weakness Extremities: Yes: WNL Edema: No Neurological: Yes: Alert, Oriented Psychiatric: Yes: Alert, Oriented Labs: CBC, BMP 10/20/18 06:30 10/20/18 06:30 INR, PTT INR 0.95 (0.83-1.09) 10/17/18 16:28 Problem List - Problems (1) Anemia Assessment/Plan: -GI and Hematology on board -s/p 2U PRBC transfusion -Hg 8.9 -monitor Hg daily -Stool OB positive -Iron Panel reviewed -Pantoprazole -outpatient EGD/colonoscopy when discharged Code(s): D64.9 - ANEMIA, UNSPECIFIED (2) HTN (hypertension) Assessment/Plan: -Metoprolol Code(s): I10 - ESSENTIAL (PRIMARY) HYPERTENSION (3) Diabetes mellitus Assessment/Plan: -BGM ACHS -ISS -Metformin and Januvia Code(s): E11.9 - TYPE 2 DIABETES MELLITUS WITHOUT COMPLICATIONS (4) Leukocytosis Assessment/Plan: -WBC 16.8 -afebrile -BC, UA, and UC ordered -CXR reviewed Code(s): D72.829 - ELEVATED WHITE BLOOD CELL COUNT, UNSPECIFIED Assessment/Plan see problem list dvt ppx
[2018-10-20 15:55] LABS: EPI CELLS 0.6 /HPF (0-5/HPF); HYALINE CASTS 7 /lpf (0-8); PH,URINE 5.5 (5.0-8.0); URINE APPEARANCE CLEAR; URINE BACTERIA 5.2 /hpf (NEGATIVE); URINE BILIRUBIN NEGATIVE (NEGATIVE); URINE COLOR YELLOW; URINE GLUCOSE (UA) NEGATIVE (NEGATIVE); URINE KETONE TRACE (NEGATIVE); URINE LEUK ESTERASE 1+ (NEGATIVE); URINE NITRITE NEGATIVE (NEGATIVE); URINE PROTEIN TRACE (NEGATIVE); URINE RBC 1 /hpf (0-4); URINE WBC 1 /hpf (0-5)
[2018-10-20] MEDS: PRAMIPEXOLE DIHYDROCHLORIDE 0.25 MG TABLET PO SCH (22:51)
[2018-10-20] MEDS: ATORVASTATIN CA 40 MG TABLET (FP) PO SCH (22:52)
[2018-10-20] MEDS: EZETIMIBE 10 MG TABLET (FP) PO SCH (22:52)
[2018-10-21] MEDS ORDERED: PT OWN MED DRAWER 7, Y5N ONE (06:32)
[2018-10-21] MEDS: sitaGLIPtin PHOSPHATE 50 MG TABLET PO SCH (06:37)
[2018-10-21] MEDS: glipiZIDE-XL 2.5 MG TAB.ER.24 PO SCH (06:38)
[2018-10-21 08:04] LABS: HEMATOCRIT 26.2 % (32.4-45.2); HEMOGLOBIN 8.2 GM/dL (10.7-15.3); MCH 26.8 pg (25.7-33.7); MCHC 31.4 g/dl (32.0-36.0); MEAN CELL VOLUME 85.2 fl (80-96); MEAN PLT VOLUME 9.1 fl (7.5-11.1); PLATELET COUNT 238 K/MM3 (134-434); RBC 3.08 M/mm3 (3.60-5.2); RDW 16.7 % (11.6-15.6); WHITE BLOOD COUNT 9.4 K/mm3 (4.0-10.0)
[2018-10-21] MEDS: SOLIFENACIN SUCCINATE 5 MG TAB PO SCH (09:12)
[2018-10-21] MEDS: DULoxetine HCL 30 MG CAPSULE.DR PO SCH (09:12)
[2018-10-21] MEDS: ASPIRIN 81 MG CHEWABLE TABLETS PO SCH (09:12)
[2018-10-21] MEDS: PANTOPRAZOLE SODIUM 40 MG VIAL IVPUSH SCH (09:12)
[2018-10-21] MEDS: LOSARTAN POTASSIUM 50 MG TABLET (FP) PO SCH (09:12)
--- NOTE | 2018-10-21 09:58 | PN.GI ---
GI Progress Note Subjective: no complaints of abdominal pain / melena/ hemeatochezia / n/v - Objective Vital Signs: Vital Signs Temperature 98.1 F 10/21/18 06:00 Pulse Rate 77 10/21/18 06:00 Respiratory Rate 20 10/21/18 06:00 Blood Pressure 123/54 L 10/21/18 06:00 O2 Sat by Pulse Oximetry (%) 97 10/20/18 21:00 Constitutional: Well Nourished, No Distress, Calm Eyes: Yes: WNL HENT: Yes: WNL Neck: Yes: WNL, Supple Cardiovascular: Yes: WNL, Regular Rate and Rhythm Respiratory: Yes: WNL, Regular, CTA Bilaterally Gastrointestinal Inspection: Yes: WNL Extremities: Yes: WNL Edema: No Labs: CBC, BMP 10/21/18 07:15 INR, PTT INR 0.95 (0.83-1.09) 10/17/18 16:28 Problem List - Problems (1) Anemia Assessment/Plan: H/H STABLE ; LEUKOCYTOSIS NOTED - EVALUATION PER PRIMARY MEDICAL TEAM. DIET TOLERATED OUTPT GI F/U FOR DIAGNOSTIC EGD / COLONOSCOPY WITH DR. JANSEN C/W PPI 40 MG PO QD AVOID NSAID \ Code(s): D64.9 - ANEMIA, UNSPECIFIED
[2018-10-21] MEDS: METOPROLOL TARTRATE 25 MG TABLET (FP) PO SCH (10:03)
[2018-10-21 10:07] LABS: ALBUMIN 3.1 g/dl (3.4-5.0); BILIRUBIN,TOTAL 0.4 mg/dL (0.2-1); CALCIUM 8.4 mg/dL (8.5-10.1); CREATININE 0.8 mg/dL (0.55-1.3); TOT PROT 5.5 g/dl (6.4-8.2)
[2018-10-21 10:21] VITALS: BP 131/73; PULSE 72; TEMP 97.9
--- NOTE | 2018-10-21 11:25 | PN ---
Progress Note, Physician Chief Complaint: Anemia HTN History of Present Illness: NAD seen by GI H/H stable - Current Medication List Current Medications: Active Medications Acetaminophen (Tylenol -) 650 mg PO Q6HPO PRN PRN Reason: FEVER Aspirin (Asa -) 81 mg PO BID [facility] Last Admin: 10/21/18 09:12 Dose: 81 mg Atorvastatin Calcium (Lipitor -) 40 mg PO HS [facility] Last Admin: 10/20/18 22:52 Dose: 40 mg Cholecalciferol (Vitamin D3 -) 50,000 unit PO WEEKLY [facility] Duloxetine HCl (Cymbalta -) 30 mg PO DAILY [facility] Last Admin: 10/21/18 09:12 Dose: 30 mg Ezetimibe (Zetia -) 10 mg PO HS [facility] Last Admin: 10/20/18 22:52 Dose: 10 mg Glipizide (Glucotrol Xl -) 2.5 mg PO DAILY@0700 [facility] Last Admin: 10/21/18 06:38 Dose: 2.5 mg Losartan Potassium (Cozaar -) 50 mg PO DAILY [facility] Last Admin: 10/21/18 09:12 Dose: 50 mg Metformin HCl (Glucophage Xr -) 500 mg PO DAILY@0700 [facility] Last Admin: 10/21/18 06:37 Dose: 500 mg Metoprolol Tartrate (Lopressor -) 25 mg PO DAILY [facility] Last Admin: 10/21/18 10:03 Dose: 25 mg Non-Formulary Medication (Icosapent Ethyl [Vascepa]) 1 gm PO DAILY [facility] Pantoprazole Sodium (Protonix Iv) 40 mg IVPUSH BID [facility] Last Admin: 10/21/18 09:12 Dose: 40 mg Pramipexole Dihydrochloride (Mirapex -) 0.5 mg PO HS [facility] Last Admin: 10/20/18 22:51 Dose: 0.5 mg Sitagliptin Phosphate (Januvia -) 50 mg PO DAILY@0700 [facility] Last Admin: 10/21/18 06:37 Dose: 50 mg Solifenacin (Vesicare -) 5 mg PO DAILY [facility] Last Admin: 10/21/18 09:12 Dose: 5 mg - Objective Vital Signs: Vital Signs Temperature 97.9 F 10/21/18 10:00 Pulse Rate 72 10/21/18 10:00 Respiratory Rate 20 10/21/18 10:00 Blood Pressure 131/73 10/21/18 10:00 O2 Sat by Pulse Oximetry (%) 97 10/20/18 21:00 Constitutional: Yes: Well Nourished, No Distress, Calm Cardiovascular: Yes: Regular Rate and Rhythm Respiratory: Yes: Regular Gastrointestinal: Yes: Normal Bowel Sounds, Soft, Abdomen, Obese Musculoskeletal: Yes: WNL Extremities: Yes: WNL Edema: No Peripheral Pulses WNL: Yes Neurological: Yes: Alert, Oriented Psychiatric: Yes: Alert, Oriented Labs: CBC, BMP 10/21/18 07:15 10/21/18 07:15 INR, PTT INR 0.95 (0.83-1.09) 10/17/18 16:28 Assessment/Plan (1) Anemia Assessment/Plan: -GI and Hematology on board -No intervention recommended at this time -Will need outpatient diagnostic colonoscopy/EGD -Hg 8.2 -monitor Hg daily -Stool OB positive -Iron Panel normal -Pantoprazole Code(s): D64.9 - ANEMIA, UNSPECIFIED (2) HTN (hypertension) Assessment/Plan: -Metoprolol Code(s): I10 - ESSENTIAL (PRIMARY) HYPERTENSION (3) Diabetes mellitus Assessment/Plan: -BGM ACHS -ISS -Metformin and Januvia Code(s): E11.9 - TYPE 2 DIABETES MELLITUS WITHOUT COMPLICATIONS (4) Leukocytosis Assessment/Plan: -resolved -afebrile -BC, UA, and UC ordered -CXR reviewed Code(s): D72.829 - ELEVATED WHITE BLOOD CELL COUNT, UNSPECIFIED Can be discharged with close f/u with GI outpatient
[2018-10-22 05:00] LABS: SERUM IRON SATURATION 6 % (15-55); TOTAL IRON BINDING CAPACITY 339 ug/dL (250-450); UIBC 320 ug/dL (118-369)
== END 2018-10-21 12:56 | disposition home or self-care (01) ==
LOC: JER 13:00 → JERBED 16:58 → J5S 22:56
PROVIDERS: ADMIT Student in an Organized Health Care Education/Training Program; ATTEND Student in an Organized Health Care Education/Training Program
PROC: 30233N1 Transfusion of Nonautologous Red Blood Cells into Peripheral Vein, Percutaneous Approach (ICD-10-PCS; principal; 2018-10-17)
PROC: 3E0337Z Introduction of Electrolytic and Water Balance Substance into Peripheral Vein, Percutaneous Approach (ICD-10-PCS; 2018-10-17)
PROC: 3E033GC Introduction of Other Therapeutic Substance into Peripheral Vein, Percutaneous Approach (ICD-10-PCS; 2018-10-17)
DX: D64.9 Anemia, unspecified (principal); R53.1 Weakness; E11.22 Type 2 diabetes mellitus with diabetic chronic kidney disease; I12.9 Hypertensive chronic kidney disease with stage 1 through stage 4 chronic kidney disease, or unspecified chronic kidney disease; N18.9 Chronic kidney disease, unspecified; Z79.84 Long term (current) use of oral hypoglycemic drugs; E78.5 Hyperlipidemia, unspecified; D72.829 Elevated white blood cell count, unspecified; Z79.82 Long term (current) use of aspirin; Z96.651 Presence of right artificial knee joint
CPT/HCPCS: 36415; 36430; 71045-TC-FY; 74178-TC; 80051; 80053; 80061; 80076; 81003; 82272; 82306; 82378; 82607; 82670; 82728; 82746; 82962; 83010; 83036; 83540; 83550; 83615; 83721; 83735; 84100; 84436; 84443; 84479; 84484; 84550; 85025; 85027; 85610; 85730; 86301; 86850; 86880; 86900; 86901; 86922; 87040; 87086; 93970-TC; 96374; 96375; 96376; 99283-25; G0378; P9038; P9058

== ENCOUNTER 2018-11-26 16:48 | Inpatient (IN) | payer OTHER ==
[2018-11-26 16:54] VITALS: BMI 29.0
--- NOTE | 2018-11-26 17:09 | PDOC ---
History of Present Illness - General Chief Complaint: Revisit, Lab Variance Stated Complaint: LOW BLOOD LEVELS Time Seen by Provider: 11/26/18 17:05 History Source: Patient Exam Limitations: No Limitations - History of Present Illness Initial Comments: Memo Carias is a 78 yo F w a pmh of leukemia, HTN, HLD, NIDDM, and CKD who presents to the ER via private auto sent in by her PCP - Dr. Pérez bc she has a low H&H and has edema to her lower extremities. The patient states she was sent here by Dr. Pérez to get a transfusion bc her Hb this morning was 7.7 and her Hct was 24.7. The patient states she has been feeling very weak and exhausted for the past few weeks and never seems to have enough strength. She also says she believes she's been very pale lately. Lastly, she is unhappy because her legs have been increasingly swelling for the past few weeks. She endorses significant dyspnea on exertion recently. PCP: Dr. Pérez GI: Víctor Oncologist: Dr. Chandra Social Hx: Denies current smoking, drinking, or other substance usage. Allergies: NKA, NKDA PSH: R knee replacement, abdominal hernia repair, C/S Past History - Past Medical History Allergies/Adverse Reactions: Allergies Allergy/AdvReac Type Severity Reaction Status Date / Time No Known Allergies Allergy Verified 11/26/18 16:54 Home Medications: Ambulatory Orders Aspirin 81 mg PO BID 10/17/18 Atorvastatin Ca [Lipitor] 40 mg PO HS 10/17/18 Candesartan Cilexetil [Atacand -] 8 mg PO DAILY 10/17/18 Cholecalciferol (Vitamin D3) [Vitamin D -] 50,000 unit PO WEEKLY 10/17/18 Cyanocobalamin Vit B-12 Inj. [Vitamin B12 Injection -] 1,000 mcg IM MONTHLY Duloxetine HCl [Cymbalta] 60 mg PO DAILY 10/17/18 Esomeprazole Magnesium [Nexium 24Hr] 40 mg PO DAILY 10/17/18 Ezetimibe [Zetia] 10 mg PO HS 10/17/18 Ferrous Gluconate [Fergon -] 324 mg PO DAILY 10/17/18 Icosapent Ethyl [Vascepa] 1 gm PO DAILY 10/17/18 Metoprolol Succinate 25 mg PO DAILY 10/17/18 Pramipexole Di-HCl [Mirapex] 0.5 mg PO BID 10/17/18 Sitagliptin Phosphate [Januvia] 50 mg PO DAILY 10/17/18 Solifenacin Succinate [Vesicare -] 5 mg PO DAILY 10/17/18 Acetaminophen [Tylenol .Regular Strength -] 650 mg PO Q6HPO PRN tablet Anemia: Yes COPD: No Diabetes: Yes HTN: Yes Hypercholesterolemia: Yes - Surgical History Abdominal Surgery: Yes (hernia) Cardiac Surgery: Yes (stent placed in heart, pt son states around 2008) - Suicide/Smoking/Psychosocial Hx Smoking History: Never smoked Information on smoking cessation initiated: No Hx Alcohol Use: No Drug/Substance Use Hx: No Substance Use Type: None Hx Substance Use Treatment: No Review of Systems - Review of Systems Able to Perform ROS?: Yes Comments:: CONSTITUTIONAL: Present: Fatigue Absent: fever, no chills, EYES: Absent: visual changes ENT: Absent: ear pain, no sore throat CARDIOVASCULAR: Absent: chest pain, no palpitations RESPIRATORY: Absent: cough, no SOB GI: Absent: abdominal pain, no nausea, no vomiting, no constipation, no diarrhea GENITOURINARY: Absent: dysuria, no frequency, no hematuria MUSKULOSKELETAL: Absent: back pain, no arthralgia, no myalgia SKIN: Absent: rash NEURO: Absent: headache *Physical Exam - Vital Signs Last Vital Signs Temp Pulse Resp BP Pulse Ox 98.3 F 70 18 159/45 L 99 11/26/18 16:52 11/26/18 16:52 11/26/18 16:52 11/26/18 16:52 11/26/18 16:52 - Physical Exam Comments: GENERAL: Patient appears pale. No apparent distress. HEENT: Normocephalic, atraumatic. PERRL, EOM intact. CARDIOVASCULAR: There is a crescendo-decrescendo murmur in the aortic region. Regular rate and rhythm. PULMONARY: No evidence of respiratory distress. Lungs clear to auscultation bilaterally. No wheezing, rales or rhonchi. ABDOMEN: Soft, non-distended, non-tender. EXTREMITIES: Normal ROM in all four extremities. Both legs are edematous up to knee. SKIN: Warm, dry. No rash NEUROLOGICAL: No focal neurological deficits. Procedures - Bedside Ultrasound Bedside Ultrasound: Cardiac Remarks: Cardiac Echo: Normal wall motion globally. No pericardial effusion. There is a moderate degree of aortic calcification. EPSS - 6.1: Good hear function overall. Normal LV/RV size ratio Heart Score/ECG Review - ECG Intrepretation Rhythm: Regular Rhythm - Alum Bridge Alum Bridge: Normal - P and MS Prolonged MS Interval: 1st Degree Block(>20mils) Delta Wave(s) Present: No WPW: No - QRS Poor R Wave Progression: No - ST and T Early Repolarization: No Non Specific ST-T Wave changes: No Flattened T Waves: No Prolonged Q-T Interval: No - ECG Impressions Normal ECG: Yes Non-specific ST Elevation: No ED Treatment Course - LABORATORY CBC & Chemistry Diagram: 11/26/18 17:30 11/26/18 17:30 Medical Decision Making - Medical Decision Making Memo Carias is a 78 yo F w a pmh of leukemia, HTN, HLD, NIDDM, and CKD who presents to the ER via private auto sent in by her PCP - Dr. Pérez bc she has a low H&H and has edema to her lower extremities. The patient states she was sent here by Dr. Pérez to get a transfusion bc her Hb this morning was 7.7 and her Hct was 24.7. The patient states she has been feeling very weak and exhausted for the past few weeks and never seems to have enough strength. She also says she believes she's been very pale lately. Lastly, she is unhappy because her legs have been increasingly swelling for the past few weeks. She endorses significant dyspnea on exertion recently. Vital Signs Temp Pulse Resp BP Pulse Ox 98.3 F 70 18 159/45 L 99 11/26/18 16:52 11/26/18 16:52 11/26/18 16:52 11/26/18 16:52 11/26/18 16:52 DDx IBNLT: Anemia, CHF, electrolyte/metabolic disturbance Plan: Labs, FOBT, PRBC, EKG, POCUS cardio, CXR, re-assess. Labs: Low H&H FOBT: EKG: Normal sinus rate of 66, low voltage QRS, no ST elevations or depressions. Overall unremarkable EKG. CXR: Unremarkable. Disposition: Admit to hospital for blood transfusions. Signing patient out to night resident to complete ED course and admit patient to the hospital for blood transfusions. *DC/Admit/Observation/Transfer Diagnosis at time of Disposition: Anemia, Anemia requiring transfusions, Weakness - Referrals Referrals: Nathen Pérez MD [Primary Care Provider] - - Patient Instructions - Post Discharge Activity
[2018-11-26 17:48] LABS: INR 1.01 (0.83-1.09); PROTHROMBIN TIME (PATIENT) 11.9 SEC (9.7-13.0)
[2018-11-26 18:19] LABS: ALBUMIN 3.2 g/dl (3.4-5.0); BILIRUBIN,TOTAL 0.2 mg/dL (0.2-1); BLOOD UREA NITROGEN 21.9 mg/dL (7-18); CALCIUM 8.3 mg/dL (8.5-10.1); CREATININE 0.8 mg/dL (0.55-1.3); POTASSIUM 3.9 mmol/L (3.5-5.1); TOT PROT 5.8 g/dl (6.4-8.2)
[2018-11-26 18:38] LABS: BASO % 0.7 % (0-2.0); EOS % 1.4 % (0-4.5); HEMATOCRIT 24.2 % (32.4-45.2); HEMOGLOBIN 7.4 GM/dL (10.7-15.3); MCH 24.6 pg (25.7-33.7); MCHC 30.7 g/dl (32.0-36.0); MEAN CELL VOLUME 80.2 fl (80-96); MONO % 8.5 % (3.8-10.2); NEUT % 53.4 % (42.8-82.8); PLATELET COUNT 142 K/MM3 (134-434); RBC 3.01 M/mm3 (3.60-5.2); RDW 17.7 % (11.6-15.6); RETICULOCYTES 1.52 % (0.5-1.5); WHITE BLOOD COUNT 6.8 K/mm3 (4.0-10.0)
--- NOTE | 2018-11-26 18:50 | PDOC ---
Documentation entered by Angela Cohn SCRIBE, acting as scribe for Jodee Huang DO. Jodee Huang DO: This documentation has been prepared by the Lalit zuluaga Xhesika, SCRIBE, under my direction and personally reviewed by me in its entirety. I confirm that the documentation accurately reflects all work, treatment, procedures, and medical decision making performed by me. Attending Attestation - Resident Resident Name: Arturo Beckett - ED Attending Attestation I have performed the following: I have examined & evaluated the patient, The case was reviewed & discussed with the resident, I agree w/resident's findings & plan, Exceptions are as noted - HPI HPI: 11/26/18 18:28 The patient is a 78 year old female, with a significant PMH of leukemia, HTN, HLD, NIDDM, and CKD who presents to the emergency department advised by her PCP , Dr. Pérez for low Hb (7.7) and hct ( 24.7) and lower extremity edema. The patient states she was sent in to get a blood transfusion because she is scheduled for a colonoscopy next week with Dr. Renee. As per daughter at bedside, the patients last colonoscopy was 5 years ago. The patient states she has been endorsing SOB that is worsened with physical activity. The patient denies any history of heart failure. The patient denies chest pain, headache and dizziness. Denies fever, chills, nausea, vomit, diarrhea and constipation. Denies dysuria, frequency, urgency and hematuria. Allergies: NKDA Past surgical history: R knee replacement, abdominal hernia repair, C/S Social history: Denies alcohol and tobacco use. PCP: Dr. Pérez GI: Dr. Renee Clerical Adjudicator: Dr. Shea \ - Physicial Exam PE: 11/26/18 18:29 GENERAL: Awake, alert, and fully oriented, in no acute distress HEAD: No signs of trauma EYES: PERRLA, EOMI, sclera anicteric, conjunctiva clear ENT: Auricles normal inspection, hearing grossly normal, nares patent, oropharynx clear without exudates. Moist mucosa NECK: Normal ROM, supple, no lymphadenopathy, JVD, or masses LUNGS: Breath sounds equal, clear to auscultation bilaterally. (+) slight wheezes R base. No crackles HEART: (+) systolic murmur. Regular rate and rhythm, normal S1 and S2, no rubs or gallops ABDOMEN: Soft, nontender, normoactive bowel sounds. No guarding, no rebound. No masses EXTREMITIES: (+) 1+ pitting edema to lower extremity bilaterally L> R. Normal range of motion. No clubbing or cyanosis. No cords, erythema, or tenderness NEUROLOGICAL: Cranial nerves II through XII grossly intact. Normal speech. SKIN: Warm, Dry, normal turgor, no rashes or lesions noted. - Medical Decision Making 11/26/18 18:09 I, Dr. Jodee Huang, DO, attest that this document has been prepared under my direction and personally reviewed by me in its entirety. I further attest, that it accurately reflects all work, treatment, procedures and medical decision -making performed by me. 11/26/18 18:09 a/p: 78yo female sent from Dr. Pérez for low h/h -pt with son, but denies cp/sob at rest -no lightheaded or dizziness -pt scheduled for colonoscopy with Dr. Renee for next saturday and scheduled for an echo on -pt denies abd pain -pt with mild le swelling-most likely from low protein, albumin, hemoglobin state -will repeat labs -will perform rectal exam for heme -will monitor and reassess 11/26/18 18:25 cxr clear 11/26/18 19:34 hemoglobin 7.4 2 units ordered for low h/h and hx of cad and stents to get to hemoglobin of 9 11/26/18 19:59 resident discussed the case with michele who accepts pt to service pt staying in the hospital for symptomatic anemia and further eval of low h/h Heart Score/ECG Review - ECG Intrepretation Comment:: 11/26/18 18:49 sinus at 66, 1st degree av block, nl axis, q waves septally which are age indeterminate, no acute st/t wave findings, baseline artifact
--- NOTE | 2018-11-26 19:02 | PDOC ---
*Physical Exam - Vital Signs Last Vital Signs Temp Pulse Resp BP Pulse Ox 98.3 F 70 18 159/45 L 99 11/26/18 16:52 11/26/18 16:52 11/26/18 16:52 11/26/18 16:52 11/26/18 16:52 ED Treatment Course - LABORATORY CBC & Chemistry Diagram: 11/26/18 17:30 11/26/18 17:30 - ADDITIONAL ORDERS Additional order review: Laboratory Results 11/26/18 11/26/18 11/26/18 17:30 17:30 17:30 PT with INR 11.90 INR 1.01 Sodium 140 Potassium 3.9 Chloride 106 Carbon Dioxide 27 Anion Gap 6 L BUN 21.9 H Creatinine 0.8 Est GFR (CKD-EPI)AfAm 81.84 Est GFR (CKD-EPI)NonAf 70.61 Random Glucose 161 H Calcium 8.3 L Ferritin 5.1 L Total Bilirubin 0.2 AST 17 ALT 15 Alkaline Phosphatase 89 LD Total 228 Total Protein 5.8 L Albumin 3.2 L TSH 1.07 Blood Type A POSITIVE Antibody Screen Negative Crossmatch See Detail 11/26/18 17:30 RBC 3.01 L MCV 80.2 MCHC 30.7 L RDW 17.7 H MPV 10.0 Neutrophils % 53.4 Lymphocytes % 36.0 Monocytes % 8.5 Eosinophils % 1.4 Basophils % 0.7 Medical Decision Making - Medical Decision Making I have assumed care of the patient from Dr. Beckett, who has discussed the clinical presentation, work-up, and ED course thus far. The patient states she was sent here by Dr. Pérez to get a transfusion bc her Hb this morning was 7.7 and her Hct was 24.7. Pt w/ Hgb 7.4, pending transfusion and admission 11/26/18 19:01 FOBT neg Consent for transfusion obtained Plan for transfusion of 2u pRBC Consult orders placed of Dr. Renee and Dr. Chandra Pt signed out to [facility] Admitting 11/26/18 20:09 *DC/Admit/Observation/Transfer Diagnosis at time of Disposition: Anemia, Anemia requiring transfusions, Weakness - Referrals Referrals: Nathen Pérez MD [Primary Care Provider] - - Patient Instructions - Post Discharge Activity
--- NOTE | 2018-11-26 20:41 | HP ---
CHIEF COMPLAINT: Low H/H sent by per PCP PCP: Dr. Fisher HISTORY OF PRESENT ILLNESS: 78 year old female with PMHX of HTN, CAD (5 years ago has two stents placed by Dr Muñoz at [facility]), HLD, DM type2, and CKD sent to the ED by PCP (Dr. Pérez) for low H/H ( Hgb 7.7, HCT: 24.7), and lower extremity edema. As per patient she was sent here for blood transfusion, according to daughter patient is schedule for colonoscopy next week with Dr. Navarrete at his office. Last colonoscopy was done 5 yeas with no acute finding. Over the course of past week patient is complaining of weakness, exhausted and sob with activity. Patient denies CP/ headache/dizziness / N&V, diarrhea. Member has history for constipation last BM was 3-4 days ago which is normal pattern ER course was notable for: (1) EKG: NSR, CXR: unremarkable, FOBT (pending) (2) blood transfusion 2 unit per PCP hgb greater than 9 (3) Recent Travel: NO PAST MEDICAL HISTORY: HTN, HLD, NIDDM, and CKD PAST SURGICAL HISTORY: R knee replacement 10 years ago, abdominal hernia repair , Cardiac stent 5 years ago, Cervical xochilt 2 years ago s/p fall fx Social History: Smoking:NO Alcohol:NO Drugs: NO Allergies: NO allergies No Known Allergies Allergy (Verified 11/26/18 16:54) HOME MEDICATIONS: Home Medications Medication Instructions Recorded Aspirin 81 mg PO BID 10/17/18 Atorvastatin Ca [Lipitor] 40 mg PO HS 10/17/18 Candesartan Cilexetil [Atacand -] 8 mg PO DAILY 10/17/18 Cholecalciferol (Vitamin D3) 50,000 unit PO WEEKLY 10/17/18 [Vitamin D -] Cyanocobalamin Vit B-12 Inj. 1,000 mcg IM MONTHLY 10/17/18 [Vitamin B12 Injection -] Duloxetine HCl [Cymbalta] 60 mg PO DAILY 10/17/18 Esomeprazole Magnesium [Nexium 40 mg PO DAILY 10/17/18 24Hr] Ezetimibe [Zetia] 10 mg PO HS 10/17/18 Ferrous Gluconate [Fergon -] 324 mg PO DAILY 10/17/18 Icosapent Ethyl [Vascepa] 1 gm PO DAILY 10/17/18 Metoprolol Succinate 25 mg PO DAILY 10/17/18 Pramipexole Di-HCl [Mirapex] 0.5 mg PO BID 10/17/18 Sitagliptin Phosphate [Januvia] 50 mg PO DAILY 10/17/18 Solifenacin Succinate [Vesicare -] 5 mg PO DAILY 10/17/18 Acetaminophen [Tylenol .Regular 650 mg PO Q6HPO PRN tablet 10/21/18 Strength -] REVIEW OF SYSTEMS CONSTITUTIONAL: generalized weakness HEENT: Absent: rhinorrhea, nasal congestion, throat pain, throat swelling, difficulty swallowing, mouth swelling, ear pain, eye pain, visual changes CARDIOVASCULAR: Absent: chest pain, syncope, palpitations, irregular heart rate , lightheadedness, peripheral edema RESPIRATORY: Absent: cough, shortness of breath, dyspnea with exertion, orthopnea, wheezing, stridor, hemoptysis GASTROINTESTINAL: Absent: abdominal pain, abdominal distension, nausea, vomiting , diarrhea, constipation GENITOURINARY: Absent: dysuria, frequency, urgency, hesitancy, hematuria, flank pain MUSCULOSKELETAL: Absent: myalgia, arthralgia, joint swelling SKIN: Absent: rash, itching, pallor NEUROLOGIC: Absent: headache, focal weakness or paresthesias, dizziness, unsteady gait, seizure, mental status changes PSYCHIATRIC: Absent: anxiety, depression PHYSICAL EXAMINATION Vital Signs - 24 hr 11/26/18 16:52 Temperature 98.3 F Pulse Rate 70 Respiratory 18 Rate Blood Pressure 159/45 L O2 Sat by Pulse 99 Oximetry (%) GENERAL: Awake, alert, and fully oriented, generalized fatigue HEENT: NC/AT, EOMI, Perrla NECK: no JVD, or masses. LUNGS: Breath sounds equal, clear to auscultation bilaterally. + wheezes right side , and no crackles HEART: Regular rate and rhythm, normal S1 and S2 without murmur, rub or gallop. ABDOMEN: Soft, nontender, not distended, normoactive bowel sounds, no guarding, no rebound, no masses. MUSCULOSKELETAL: Normal range of motion at all joints. No bony deformities or tenderness. No CVA tenderness. EXTREMITY: +1 edmea b/l NEUROLOGICAL: Cranial nerves II-XII intact. Normal speech. Normal gait. PSYCHIATRIC: Cooperative. Good eye contact. Appropriate mood and affect. SKIN: Warm, dry, normal turgor, no rashes or lesions noted Laboratory Results - last 24 hr 11/26/18 11/26/18 11/26/18 17:30 17:30 17:30 WBC 6.8 RBC 3.01 L Hgb 7.4 L Hct 24.2 L MCV 80.2 MCH 24.6 L MCHC 30.7 L RDW 17.7 H Plt Count 142 MPV 10.0 Absolute Neuts (auto) 3.6 Neutrophils % 53.4 Lymphocytes % 36.0 Monocytes % 8.5 Eosinophils % 1.4 Basophils % 0.7 Nucleated RBC % 0 Retic Count 1.52 H PT with INR 11.90 INR 1.01 Sodium 140 Potassium 3.9 Chloride 106 Carbon Dioxide 27 Anion Gap 6 L BUN 21.9 H Creatinine 0.8 Est GFR (CKD-EPI)AfAm 81.84 Est GFR (CKD-EPI)NonAf 70.61 Random Glucose 161 H Calcium 8.3 L Ferritin 5.1 L Total Bilirubin 0.2 AST 17 ALT 15 Alkaline Phosphatase 89 LD Total 228 Total Protein 5.8 L Albumin 3.2 L TSH 1.07 Stool Occult Blood Blood Type Antibody Screen Crossmatch 11/26/18 11/26/18 17:30 19:15 WBC RBC Hgb Hct MCV MCH MCHC RDW Plt Count MPV Absolute Neuts (auto) Neutrophils % Lymphocytes % Monocytes % Eosinophils % Basophils % Nucleated RBC % Retic Count PT with INR INR Sodium Potassium Chloride Carbon Dioxide Anion Gap BUN Creatinine Est GFR (CKD-EPI)AfAm Est GFR (CKD-EPI)NonAf Random Glucose Calcium Ferritin Total Bilirubin AST ALT Alkaline Phosphatase LD Total Total Protein Albumin TSH Stool Occult Blood Negative Blood Type A POSITIVE Antibody Screen Negative Crossmatch See Detail ASSESSMENT/PLAN: 78 year old female with PMHX of HTN, CAD, HLD, DM type2, and CKD present to the ED for low H/H by PCP recommendations, and lower leg edema and sob with activity. Anemia - pt pending colonoscopy with Dr. navarrete outpatient next week - EKG: Sinus at 66, 1st degree av block, nl axis, q waves septally which are age indeterminate, no acute st/t wave findings, baseline artifact - CXR: negative finding - Hgb: 7.4 ( transfuse 2 unit PRBC as per PCP recs keep Hgb of 9) - pending occult blood - follow up GI and Hematology - f/u iron profile HTN - monitor vitals - post transfusion repeat labs H/H and GI follow will consider starting home meds - as per patient ECHO schedule on CAD/HLD - lipids profile -post transfusion repeat labs H/H and GI follow will consider starting home meds DM type 2 - follow up Hga1c - start humalog sliding scale CKD - monitor renal function - avoid nephro toxic drugs Problem List - Problem (1) Anemia Assessment/Plan: Anemia - pt pending colonoscopy with Dr. navarrete outpatient next week - EKG: Sinus at 66, 1st degree av block, nl axis, q waves septally which are age indeterminate, no acute st/t wave findings, baseline artifact - CXR: negative finding - Hgb: 7.4 ( transfuse 2 unit PRBC as per PCP recs keep Hgb of 9) - pending occult blood - follow up GI and Hematology - f/u iron profile Code(s): D64.9 - ANEMIA, UNSPECIFIED (2) Diabetes mellitus Assessment/Plan: DM type 2 - follow up Hga1c - start humalog sliding scale Code(s): E11.9 - TYPE 2 DIABETES MELLITUS WITHOUT COMPLICATIONS (3) HTN (hypertension) Assessment/Plan: HTN - monitor vitals - post transfusion repeat labs H/H and GI follow will consider starting home meds - as per patient ECHO schedule on Code(s): I10 - ESSENTIAL (PRIMARY) HYPERTENSION (4) CAD (coronary artery disease) Assessment/Plan: CAD/HLD - lipids profile -post transfusion repeat labs H/H and GI follow will consider starting home meds Code(s): I25.10 - ATHSCL HEART DISEASE OF [place] CORONARY ARTERY W/O ANG PCTRS (5) Hyperlipidemia Assessment/Plan: CAD/HLD - lipids profile -post transfusion repeat labs H/H and GI follow, then will consider starting home meds Code(s): E78.5 - HYPERLIPIDEMIA, UNSPECIFIED Visit type - Emergency Visit Emergency Visit: Yes Care time: The patient presented to the Emergency Department on the above date and was hospitalized for further evaluation of their emergent condition. - New Patient This patient is new to me today: Yes Date on this admission: 11/26/18 - Critical Care Critical Care patient: No
[2018-11-27 06:49] LABS: HEMATOCRIT 31.2 % (32.4-45.2); HEMOGLOBIN 10.1 GM/dL (10.7-15.3); MCH 26.5 pg (25.7-33.7); MCHC 32.5 g/dl (32.0-36.0); MEAN CELL VOLUME 81.6 fl (80-96); MEAN PLT VOLUME 9.8 fl (7.5-11.1); PLATELET COUNT 147 K/MM3 (134-434); RBC 3.82 M/mm3 (3.60-5.2); RDW 17.3 % (11.6-15.6); WHITE BLOOD COUNT 7.7 K/mm3 (4.0-10.0)
[2018-11-27 07:17] LABS: BLOOD UREA NITROGEN 18.2 mg/dL (7-18); CALCIUM 8.7 mg/dL (8.5-10.1); CREATININE 0.7 mg/dL (0.55-1.3); POTASSIUM 4.2 mmol/L (3.5-5.1)
--- NOTE | 2018-11-27 10:15 | EKG ---
Test Reason : Blood Pressure : / mmHG Vent. Rate : 066 BPM Atrial Rate : 066 BPM P-R Int : 202 ms QRS Dur : 100 ms QT Int : 432 ms P-R-T Axes : 104 001 040 degrees QTc Int : 452 ms POOR DATA QUALITY, INTERPRETATION MAY BE ADVERSELY AFFECTED NORMAL SINUS RHYTHM WITH SINUS ARRHYTHMIA LOW VOLTAGE QRS WHEN COMPARED WITH ECG OF 03-DEC-2016 11:49, NONSPECIFIC T WAVE ABNORMALITY NOW EVIDENT IN ANTERIOR LEADS Confirmed by RICHARD MCKINNEY MD ([id number]) on 11/27/2018 10:15:22 AM Referred By: Confirmed By:RICHARD MCKINNEY MD
--- NOTE | 2018-11-27 10:30 | CON.GI ---
Consult Consult Specialty:: GI Reason for Consultation:: Anemia - History of Present Illness Chief Complaint: Hgb <7 History of Present Illness: 78 y.o. F, h/o heart disease, on chronic low dose ASA, admitted here with blood loss anemia in September 2018. States she had EGD with Dr Renee last month (negative ) and is scheduled for outpatient colonoscopy on 12/01/18. Has not been taking iron as prescribed as it upsets her stomach. Was found to be anemic again and was referred for transfusion. Denies weight loss, other GI symptoms. - History Source History Provided By: Patient, Family Member, Medical Record Limitations to Obtaining History: No Limitations - Past Medical History Cardio/Vascular: Yes: HTN, Hyperlipdemia Renal/: Yes: Other (CKD) Heme/Onc: Yes: Anemia Endocrine: Yes: Diabetes Mellitus - Past Surgical History Past Surgical History: Yes: Stent, Upper Endoscopy - Alcohol/Substance Use Hx Alcohol Use: No - Smoking History Smoking history: Never smoked Home Medications - Allergies Allergies/Adverse Reactions: Allergies Allergy/AdvReac Type Severity Reaction Status Date / Time No Known Allergies Allergy Verified 11/26/18 16:54 - Home Medications Home Medications: Ambulatory Orders Aspirin 81 mg PO BID 10/17/18 Atorvastatin Ca [Lipitor] 40 mg PO HS 10/17/18 Candesartan Cilexetil [Atacand -] 8 mg PO DAILY 10/17/18 Cholecalciferol (Vitamin D3) [Vitamin D -] 50,000 unit PO WEEKLY 10/17/18 Cyanocobalamin Vit B-12 Inj. [Vitamin B12 Injection -] 1,000 mcg IM MONTHLY Duloxetine HCl [Cymbalta] 60 mg PO DAILY 10/17/18 Esomeprazole Magnesium [Nexium 24Hr] 40 mg PO DAILY 10/17/18 Ezetimibe [Zetia] 10 mg PO HS 10/17/18 Ferrous Gluconate [Fergon -] 324 mg PO DAILY 10/17/18 Icosapent Ethyl [Vascepa] 1 gm PO DAILY 10/17/18 Metoprolol Succinate 25 mg PO DAILY 10/17/18 Pramipexole Di-HCl [Mirapex] 0.5 mg PO BID 10/17/18 Sitagliptin Phosphate [Januvia] 50 mg PO DAILY 10/17/18 Solifenacin Succinate [Vesicare -] 5 mg PO DAILY 10/17/18 Acetaminophen [Tylenol .Regular Strength -] 650 mg PO Q6HPO PRN tablet Physical Exam-GI Vital Signs: Vital Signs Temperature 98.3 F 11/27/18 01:00 Pulse Rate 60 11/27/18 01:00 Respiratory Rate 18 11/27/18 01:00 Blood Pressure 156/60 11/27/18 01:00 O2 Sat by Pulse Oximetry (%) 97 11/26/18 21:00 Labs: CBC, BMP 11/27/18 06:15 11/27/18 06:15 INR, PTT INR 1.01 (0.83-1.09) 11/26/18 17:30 Problem List - Problems (1) Anemia requiring transfusions Code(s): D64.9 - ANEMIA, UNSPECIFIED Assessment/Plan Pt has made arrangements for colonoscopy within the next few days. She is anxious to go home and complete her bowel preparation and procedure as an outpatient. This seems like a good plan to me.
--- NOTE | 2018-11-27 10:36 | CONSULT ---
Consultation: Hematology/Oncology Consult HISTORY OF PRESENT ILLNESS: Patient is a 78 yo F with a PMHX of CAD (s/p 2 stents), DM, HTN, Iron deficency anemia, was sent here by her PCP for anemia. She said Hgb was 7.7 in the office and was told to go to the hospital for a blood transfusion. She says she was feeling weak over the last few days with dyspnea on exertion when walking or with activity. She said she always has a history of Anemia and was required 2 units of blood when she was recently here on 10/12. She says she is scheduled for a colonoscopy next week with Dr. Renee for further investigation. Patient currently asymptomatic. She denies chest pain, headaches, nausea, vomiting, diarrhea, fevers, chills, sob, dizziness Social Hx: denies tobacco,alcohol, drugs Surgical history: hernia repairs, knee replacements, 3 c-sections Denies recent travel Normal mammogram last summer Background: [place] Family hx: daughter with colon cancer at 40 Normal endoscopy october 2018 Normal colonoscopy >10 years ago: normal REVIEW OF SYSTEMS: CONSTITUTIONAL: Absent: fever, chills, diaphoresis, generalized weakness, malaise, loss of appetite, weight change HEENT: Absent: difficulty swallowing, mouth swelling, ear pain, eye pain, visual changes CARDIOVASCULAR: lightheadedness Absent: chest pain, syncope, palpitations, irregular heart rate, peripheral edema RESPIRATORY: Absent: cough, shortness of breath, dyspnea with exertion, orthopnea, wheezing, stridor, hemoptysis GASTROINTESTINAL: Absent: abdominal pain, abdominal distension, nausea, vomiting, diarrhea, constipation, melena, hematochezia GENITOURINARY: Absent: dysuria, frequency, urgency, hesitancy, hematuria, flank pain, genital pain HEMATOLOGIC/IMMUNOLOGIC: Absent: easy bleeding, easy bruising, lymphadenopathy, frequent infections NEUROLOGIC: Absent: headache, focal weakness or paresthesias, dizziness, unsteady gait, seizure, mental status changes, bladder or bowel incontinence PHYSICAL EXAMINATION Vital Signs - 24 hr 11/26/18 11/26/18 11/26/18 16:52 19:15 19:59 Temperature 98.3 F 98.1 F 97.5 F L Pulse Rate 70 61 Pulse Rate [ 60 Right Radial] Respiratory 18 18 18 Rate Blood Pressure 159/45 L 141/71 Blood Pressure 149/79 [Left Arm] O2 Sat by Pulse 99 97 Oximetry (%) 11/26/18 11/26/18 11/27/18 20:45 21:00 01:00 Temperature 97.6 F 97.5 F L 98.3 F Pulse Rate 60 Pulse Rate [ 66 61 Right Radial] Respiratory 18 18 18 Rate Blood Pressure 156/60 Blood Pressure 172/63 H 130/52 L [Left Arm] O2 Sat by Pulse 97 97 Oximetry (%) GENERAL: pale appearing, comfortable in bed, in NAD HEAD: Normal with no signs of trauma. EYES: pale conjunctiva, extraocular movements intact EARS, NOSE, THROAT: oropharynx clear without exudates,thrush NECK: supple without lymphadenopathy, JVD, or masses. LUNGS: Breath sounds equal, clear to auscultation bilaterally. No wheezes, and no crackles. HEART: RRR, normal s1, s2, no murmurs appreciated ABDOMEN: Soft, nontender, not distended, normoactive bowel sounds, No hepatomegaly or splenomegaly. LOWER EXTREMITIES: 2+ pulses, No peripheral edema. NEUROLOGICAL: Cranial nerves II-XII intact. Normal speech. BREAST: no masses palpable, no tenderness, no nipple discharge Laboratory Results - last 24 hr 11/26/18 11/26/18 11/26/18 17:30 17:30 17:30 WBC 6.8 RBC 3.01 L Hgb 7.4 L Hct 24.2 L MCV 80.2 MCH 24.6 L MCHC 30.7 L RDW 17.7 H Plt Count 142 MPV 10.0 Absolute Neuts (auto) 3.6 Neutrophils % 53.4 Lymphocytes % 36.0 Monocytes % 8.5 Eosinophils % 1.4 Basophils % 0.7 Nucleated RBC % 0 Retic Count 1.52 H PT with INR 11.90 INR 1.01 Sodium 140 Potassium 3.9 Chloride 106 Carbon Dioxide 27 Anion Gap 6 L BUN 21.9 H Creatinine 0.8 Est GFR (CKD-EPI)AfAm 81.84 Est GFR (CKD-EPI)NonAf 70.61 POC Glucometer Random Glucose 161 H Calcium 8.3 L Ferritin 5.1 L Total Bilirubin 0.2 AST 17 ALT 15 Alkaline Phosphatase 89 LD Total 228 Total Protein 5.8 L Albumin 3.2 L Triglycerides Cholesterol Total LDL Cholesterol HDL Cholesterol TSH 1.07 Stool Occult Blood Blood Type Antibody Screen Crossmatch 11/26/18 11/26/1811/27/19 17:30 19:15 06:15 WBC 7.7 RBC 3.82 Hgb 10.1 L Hct 31.2 L D MCV 81.6 MCH 26.5 MCHC 32.5 RDW 17.3 H Plt Count 147 MPV 9.8 Absolute Neuts (auto) Neutrophils % Lymphocytes % Monocytes % Eosinophils % Basophils % Nucleated RBC % Retic Count PT with INR INR Sodium Potassium Chloride Carbon Dioxide Anion Gap BUN Creatinine Est GFR (CKD-EPI)AfAm Est GFR (CKD-EPI)NonAf POC Glucometer Random Glucose Calcium Ferritin Total Bilirubin AST ALT Alkaline Phosphatase LD Total Total Protein Albumin Triglycerides Cholesterol Total LDL Cholesterol HDL Cholesterol TSH Stool Occult Blood Negative Blood Type A POSITIVE Antibody Screen Negative Crossmatch See Detail 11/27/18 11/27/18 06:15 06:41 WBC RBC Hgb Hct MCV MCH MCHC RDW Plt Count MPV Absolute Neuts (auto) Neutrophils % Lymphocytes % Monocytes % Eosinophils % Basophils % Nucleated RBC % Retic Count PT with INR INR Sodium 138 Potassium 4.2 Chloride 104 Carbon Dioxide 29 Anion Gap 5 L BUN 18.2 H Creatinine 0.7 Est GFR (CKD-EPI)AfAm 96.18 Est GFR (CKD-EPI)NonAf 82.99 POC Glucometer 110 Random Glucose 105 Calcium 8.7 Ferritin Total Bilirubin AST ALT Alkaline Phosphatase LD Total Total Protein Albumin Triglycerides 71 Cholesterol 103 Total LDL Cholesterol 46 HDL Cholesterol 47 TSH Stool Occult Blood Blood Type Antibody Screen Crossmatch ASSESSMENT/PLAN: 78 yo F with a PMHX of CAD (s/p 2 stents), DM, HTN, Iron deficency anemia, was sent here by her PCP for anemia. #Iron Deficiency Anemia -s/p 2 U PRBC -Hgb now 10.1 from 7.4 post-transfusion. Responded appropriately. -FOBT negative -Plan for outpatient colonoscopy next week. Agree with plan. -GI on board, FU reccs -Low Iron level, low iron saturation, low ferritin. -consider holding iron before colonoscopy. Dispo: We will continue to follow the patient. Thank you for this consultative opportunity. Visit type - Emergency Visit Emergency Visit: Yes ED Registration Date: 11/26/18 Care time: The patient presented to the Emergency Department on the above date and was hospitalized for further evaluation of their emergent condition. - New Patient This patient is new to me today: Yes Date on this admission: 11/27/18 - Critical Care Critical Care patient: No
[2018-11-27] MEDS ORDERED: ACETAMINOPHEN 325 MG TABLET (FP) PO PRN (11:07)
[2018-11-27] MEDS ORDERED: LOSARTAN POTASSIUM 50 MG TABLET (FP) PO ONE (11:09)
[2018-11-27] MEDS ORDERED: sitaGLIPtin PHOSPHATE 50 MG TABLET PO SCH (11:15)
[2018-11-27] MEDS ORDERED: ASPIRIN 81 MG CHEWABLE TABLETS PO SCH (11:15)
[2018-11-27] MEDS ORDERED: PRAMIPEXOLE DIHYDROCHLORIDE 0.5 MG TABLET PO SCH (11:15)
[2018-11-27] MEDS ORDERED: DULoxetine HCL 30 MG CAPSULE.DR PO SCH (11:15)
[2018-11-27] MEDS ORDERED: ERGOCALCIFEROL (VIT D2) 50,000 UNIT (1.25 MG) CAPSULE PO SCH (11:15)
[2018-11-27] MEDS ORDERED: SOLIFENACIN SUCCINATE 5 MG TAB PO SCH (11:15)
[2018-11-27] MEDS ORDERED: IRON SUCROSE INJECTION 300 MG in SODIUM CHLORIDE 235 ML IVPB ONE (12:00)
--- NOTE | 2018-11-27 12:07 | PN ---
Progress Note, Physician Chief Complaint: Anemia - Current Medication List Current Medications: Active Medications Acetaminophen (Tylenol -) 650 mg PO Q6HPO PRN PRN Reason: FEVER Aspirin (Asa -) 81 mg PO BID [facility] Last Admin: 11/27/18 11:37 Dose: 81 mg Atorvastatin Calcium (Lipitor -) 40 mg PO HS [facility] Duloxetine HCl (Cymbalta -) 60 mg PO DAILY [facility] Last Admin: 11/27/18 11:37 Dose: 60 mg Ezetimibe (Zetia -) 10 mg PO HS [facility] Ergocalciferol (Drisdol -) 50,000 unit PO Th [facility] Last Admin: 11/27/18 11:40 Dose: 50,000 unit Iron Sucrose 300 mg/ Sodium (Chloride) 250 mls @ 250 mls/hr IVPB ONCE ONE Stop: 11/27/18 12:59 Metoprolol Succinate (Toprol Xl -) 25 mg PO DAILY [facility] Last Admin: 11/27/18 11:37 Dose: 25 mg Pramipexole Dihydrochloride (Mirapex -) 0.5 mg PO BID [facility] Last Admin: 11/27/18 11:38 Dose: 0.5 mg Sitagliptin Phosphate (Januvia -) 50 mg PO 0700 [facility] Last Admin: 11/27/18 11:37 Dose: 50 mg Solifenacin (Vesicare -) 5 mg PO DAILY [facility] Last Admin: 11/27/18 11:40 Dose: 5 mg - Objective Vital Signs: Vital Signs Temperature 98.3 F 11/27/18 01:00 Pulse Rate 60 11/27/18 01:00 Respiratory Rate 18 11/27/18 01:00 Blood Pressure 156/60 11/27/18 01:00 O2 Sat by Pulse Oximetry (%) 97 11/26/18 21:00 Labs: CBC, BMP 11/27/18 06:15 11/27/18 06:15 INR, PTT INR 1.01 (0.83-1.09) 11/26/18 17:30
--- NOTE | 2018-11-27 12:28 | PN ---
Teaching Attending Note Name of Resident: Telly Hahn ATTENDING PHYSICIAN STATEMENT I saw and evaluated the patient. I reviewed the resident's note and discussed the case with the resident. I agree with the resident's findings and plan as documented. SUBJECTIVE: Patient seen and examined Presented with anemia with low ferritin compatible with iron deficiency. In hospital in 09/2018 and required 2 units of packed cells . Recent EGD in October reportedly non diagnostic . For colonoscopy next week. Begun on iron and B-12 therapy Family history positive for daughter with colon ca Last Vital Signs Temp Pulse Resp BP Pulse Ox 97.7 F 61 20 161/68 97 11/27/18 11:00 11/27/18 11:00 11/27/18 11:00 11/27/18 11:00 11/27/18 09:00 On asa therapy ; ROS- tired , weak , SOB prior to admission , otherwise non contributory HEENT: ZENOBIA, EOM Intact Oropharynx: No thrush, No mucositis Neck: Supple Nodes: Without adenopathy Breasts: Without masses Cor: RSR, No murmurs, No gallops Lungs: Clear to P&A Abd: Soft, Normal bowel sounds, No organomegaly,surgical scar Ext:No significant edema Skin: No rashes, Integument intact Current Medications Generic Name Dose Route Start Last Admin Trade Name Freq PRN Reason Stop Dose Admin Acetaminophen 650 mg 11/27/18 11:07 Tylenol - PO Q6HPO PRN FEVER Aspirin 81 mg 11/27/18 11:15 11/27/18 11:37 Asa - PO 81 mg BID KARLA Administration Atorvastatin Calcium 40 mg 11/27/18 22:00 Lipitor - PO HS KARLA Duloxetine HCl 60 mg 11/27/18 11:15 11/27/18 11:37 Cymbalta - PO 60 mg DAILY KARLA Administration Ezetimibe 10 mg 11/27/18 22:00 Zetia - PO HS KARLA Ergocalciferol 50,000 unit 11/27/18 11:15 11/27/18 11:40 Drisdol - PO 50,000 unit Th KARLA Administration Iron Sucrose 300 mg/ Sodium 250 mls @ 250 mls/hr 11/27/18 12:00 Chloride IVPB 11/27/18 12:59 ONCE ONE Metoprolol Succinate 25 mg 11/27/18 11:15 11/27/18 11:37 Toprol Xl - PO 25 mg DAILY KARLA Administration Pramipexole Dihydrochloride 0.5 mg 11/27/18 11:15 11/27/18 11:38 Mirapex - PO 0.5 mg BID KARLA Administration Sitagliptin Phosphate 50 mg 11/27/18 11:15 11/27/18 11:37 Januvia - PO 50 mg 0700 KARLA Administration Solifenacin 5 mg 11/27/18 11:15 11/27/18 11:40 Vesicare - PO 5 mg DAILY KARLA Administration mpression: Iron deficiency with non revealing EGD ; Scheduled for colonoscopy. On oral Fe++ which needs to be discontinued prior to procedure. Have suggested celiac panel and HbE - declined by family at this time. Have suggested parenteral Fe++ if intolerant of oral preparation. OBJECTIVE: ASSESSMENT AND PLAN:
[2018-11-27] MEDS ORDERED: PT OWN MED DRAWER 7, Y5N ONE (13:18)
[2018-11-27 13:56] VITALS: BP 157/62; PULSE 56; TEMP 97.8
[2018-11-27 15:00] LABS: MAGNESIUM 2.1 mg/dL (1.8-2.4); N-TERMINAL BNP 858.4 pg/ml (5-450)
[2018-11-27] MEDS ORDERED: ATORVASTATIN CA 40 MG TABLET (FP) PO SCH (22:00)
[2018-11-27] MEDS ORDERED: EZETIMIBE 10 MG TABLET (FP) PO SCH (22:00)
== END 2018-11-27 03:00 | disposition home or self-care (01) | DRG 812 ==
LOC: JER 16:48 → JERBED 19:59 → J8W 22:12
PROVIDERS: ADMIT Family Medicine; ATTEND Family Medicine
PROC: 30233N1 Transfusion of Nonautologous Red Blood Cells into Peripheral Vein, Percutaneous Approach (ICD-10-PCS; principal; 2018-11-26)
DX: D50.9 Iron deficiency anemia, unspecified (principal); C95.90 Leukemia, unspecified not having achieved remission; I12.9 Hypertensive chronic kidney disease with stage 1 through stage 4 chronic kidney disease, or unspecified chronic kidney disease; N18.9 Chronic kidney disease, unspecified; I25.10 Atherosclerotic heart disease of native coronary artery without angina pectoris; E78.5 Hyperlipidemia, unspecified; E11.22 Type 2 diabetes mellitus with diabetic chronic kidney disease; Z98.61 Coronary angioplasty status; I44.0 Atrioventricular block, first degree
CPT/HCPCS: 36415; 36430; 36511; 71045-TC-FY; 80048; 80053; 80061; 80076; 82272; 82728; 82962; 83036; 83540; 83550; 83615; 83721; 83735; 83880; 84443; 85025; 85027; 85044; 85610; 86850; 86900; 86901; 86922; 93005; 93010; 99285-25; J1756; P9038; P9058

== ENCOUNTER 2019-02-13 05:24 | Day surgery (SDC) | payer OTHER ==
[2019-02-13 08:18] LABS: BASO % 0.7 % (0-2.0); EOS % 1.1 % (0-4.5); HEMATOCRIT 21.1 % (32.4-45.2); LYMPH % 32.4 % (8-40); MCHC 31.8 g/dl (32.0-36.0); MEAN CELL VOLUME 81.8 fl (80-96); MEAN PLT VOLUME 9.1 fl (7.5-11.1); MONO % 7.2 % (3.8-10.2); NEUT % 58.6 % (42.8-82.8); PLATELET COUNT 169 K/MM3 (134-434); RBC 2.58 M/mm3 (3.60-5.2); RDW 20.3 % (11.6-15.6); RETICULOCYTES 1.32 % (0.5-1.5); WHITE BLOOD COUNT 8.3 K/mm3 (4.0-10.0)
[2019-02-13 08:22] LABS: HEMOGLOBIN 6.7 GM/dL (10.7-15.3)
[2019-02-13 08:59] LABS: ALBUMIN 3.4 g/dl (3.4-5.0); ALK PHOS 98 U/L (45-117); ANION GAP 4 MMOL/L (8-16); BILIRUBIN,TOTAL 0.2 mg/dL (0.2-1); BLOOD UREA NITROGEN 21.7 mg/dL (7-18); CALCIUM 8.9 mg/dL (8.5-10.1); CHLORIDE 105 mmol/L (98-107); CO2 30 mmol/L (21-32); CREATININE 0.7 mg/dL (0.55-1.3); GLUCOSE,RANDOM 124 mg/dL (74-106); IRON SERUM 12 ug/dL (50-175); LDH 178 U/L (84-246); POTASSIUM 4.5 mmol/L (3.5-5.1); SGOT/AST 17 U/L (15-37); SGPT/ALT 15 U/L (13-61); SODIUM 139 mmol/L (136-145); TOT PROT 5.9 g/dl (6.4-8.2); TOTAL IRON BINDING CAPACITY 359 ug/dL (250-450)
[2019-02-13 11:11] VITALS: PULSE 56
[2019-02-13 11:15] VITALS: BP 124/68; TEMP 98.1
[2019-02-13 11:27] LABS: ERYTHROCYTE SEDIMENTATION RATE 46 mm/hr (0-30)
== END 2019-02-13 15:30 | disposition home or self-care (01) ==
LOC: JONCBLOOD 05:24 → J7W 08:13 → JONCBLOOD 15:30
PROVIDERS: ATTEND Internal Medicine Hematology & Oncology
PROC: 30233N1 Transfusion of Nonautologous Red Blood Cells into Peripheral Vein, Percutaneous Approach (ICD-10-PCS; principal; 2019-02-13)
DX: D64.9 Anemia, unspecified (principal)
CPT/HCPCS: 36415; 36430; 36511; 80053; 82607; 82728; 82747; 83010; 83540; 83550; 83615; 84443; 85014; 85025; 85044; 85651; 86140; 86850; 86880; 86900; 86901; 86922; P9038; P9058

== ENCOUNTER 2019-02-20 05:29 | Day surgery (SDC) | payer OTHER ==
[2019-02-20 09:24] LABS: BASO % 0.9 % (0-2.0); EOS % 1.7 % (0-4.5); HEMOGLOBIN 7.9 GM/dL (10.7-15.3); LYMPH % 37.4 % (8-40); MCH 25.8 pg (25.7-33.7); MCHC 31.6 g/dl (32.0-36.0); MEAN CELL VOLUME 81.6 fl (80-96); MEAN PLT VOLUME 8.8 fl (7.5-11.1); MONO % 7.9 % (3.8-10.2); NEUT % 52.1 % (42.8-82.8); PLATELET COUNT 146 K/MM3 (134-434); RBC 3.07 M/mm3 (3.60-5.2); RDW 19.3 % (11.6-15.6); WHITE BLOOD COUNT 6.8 K/mm3 (4.0-10.0)
[2019-02-20 10:00] LABS: ALBUMIN 3.4 g/dl (3.4-5.0); BILIRUBIN,TOTAL 0.3 mg/dL (0.2-1); CALCIUM 8.7 mg/dL (8.5-10.1); CREATININE 0.7 mg/dL (0.55-1.3); MAGNESIUM 2.1 mg/dL (1.8-2.4); POTASSIUM 4.6 mmol/L (3.5-5.1); TOT PROT 5.8 g/dl (6.4-8.2)
[2019-02-20] MEDS ORDERED: FERRIC CARBOXYMALTOSE 750 MG in SODIUM CHLORIDE 250 ML IVPB ONE (10:00)
[2019-02-20 15:02] VITALS: TEMP 97.7
[2019-02-20 15:03] VITALS: BP 180/56; PULSE 54
== END 2019-02-20 11:45 | disposition home or self-care (01) ==
LOC: JONCNONCHE 05:29 → J7W 09:54 → JONCNONCHE 11:45
PROVIDERS: ATTEND Internal Medicine Hematology & Oncology
PROC: 3E033GC Introduction of Other Therapeutic Substance into Peripheral Vein, Percutaneous Approach (ICD-10-PCS; principal; 2019-02-20)
DX: D50.9 Iron deficiency anemia, unspecified (principal)
CPT/HCPCS: 36415; 80053; 82728; 83540; 83550; 83615; 83735; 85025; 86038; 86304; 96365; J1439

== ENCOUNTER 2019-02-27 05:41 | Day surgery (SDC) | payer OTHER ==
[2019-02-27] MEDS ORDERED: FERRIC CARBOXYMALTOSE 750 MG in SODIUM CHLORIDE 250 ML IVPB ONE (10:00)
[2019-02-27 11:12] LABS: BASO % 0.9 % (0-2.0); EOS % 1.2 % (0-4.5); HEMATOCRIT 27.8 % (32.4-45.2); HEMOGLOBIN 8.8 GM/dL (10.7-15.3); LYMPH % 33.8 % (8-40); MCH 26.4 pg (25.7-33.7); MCHC 31.5 g/dl (32.0-36.0); MEAN CELL VOLUME 83.8 fl (80-96); MEAN PLT VOLUME 9.8 fl (7.5-11.1); MONO % 7.4 % (3.8-10.2); NEUT % 56.7 % (42.8-82.8); PLATELET COUNT 155 K/MM3 (134-434); RBC 3.32 M/mm3 (3.60-5.2); RDW 20.6 % (11.6-15.6)
[2019-02-27 12:19] LABS: ANISOCYTOSIS 2+; MACROCYTOSIS 0; PLATELET ESTIMATE DECREASED
[2019-02-27 16:12] VITALS: BP 149/54; PULSE 57; TEMP 97.9
== END 2019-02-27 11:25 | disposition home or self-care (01) ==
LOC: JONCCHEMO 05:41 → J7W 10:25 → JONCCHEMO 11:25
PROVIDERS: ATTEND Internal Medicine Hematology & Oncology
PROC: 3E033GC Introduction of Other Therapeutic Substance into Peripheral Vein, Percutaneous Approach (ICD-10-PCS; principal; 2019-02-27)
DX: D50.9 Iron deficiency anemia, unspecified (principal); I10 Essential (primary) hypertension; I25.10 Atherosclerotic heart disease of native coronary artery without angina pectoris; E78.00 Pure hypercholesterolemia, unspecified
CPT/HCPCS: 36415; 83615; 85025; 86038; 86304; 96365; J1439

== ENCOUNTER 2019-07-03 05:48 | Day surgery (SDC) | payer OTHER ==
[2019-07-03] MEDS ORDERED: FERRIC CARBOXYMALTOSE 750 MG in SODIUM CHLORIDE 250 ML IVPB ONE (10:00)
[2019-07-03 13:45] VITALS: TEMP 97.9
[2019-07-03 13:56] VITALS: BP 144/52; PULSE 55
== END 2019-07-03 10:45 | disposition home or self-care (01) ==
LOC: JONCNONCHE 05:48 → J7W 08:47 → JONCNONCHE 10:45
PROVIDERS: ATTEND Internal Medicine Hematology & Oncology
PROC: 3E033GC Introduction of Other Therapeutic Substance into Peripheral Vein, Percutaneous Approach (ICD-10-PCS; principal; 2019-07-03)
DX: D50.9 Iron deficiency anemia, unspecified (principal)
CPT/HCPCS: 96365; J1439

== ENCOUNTER 2019-07-10 05:20 | Day surgery (SDC) | payer OTHER ==
[2019-07-10] MEDS ORDERED: FERRIC CARBOXYMALTOSE 750 MG in SODIUM CHLORIDE 250 ML IVPB ONE (10:00)
[2019-07-10 15:29] VITALS: PULSE 56; TEMP 97.8
[2019-07-10 15:38] VITALS: BP 141/78
== END 2019-07-10 11:21 | disposition home or self-care (01) ==
LOC: JONCNONCHE 05:20 → J7W 10:21 → JONCNONCHE 11:21
PROVIDERS: ATTEND Internal Medicine Hematology & Oncology
DX: D50.9 Iron deficiency anemia, unspecified (principal)
CPT/HCPCS: 96365; J1439

== ENCOUNTER 2020-01-15 07:20 | Day surgery (SDC) | payer OTHER ==
[2020-01-15 09:30] LABS: BASO % 0.8 % (0-2.0); EOS % 1.9 % (0-4.5); HEMATOCRIT 21.6 % (32.4-45.2); LYMPH % 35.3 % (8-40); MCH 28.5 pg (25.7-33.7); MCHC 31.2 g/dl (32.0-36.0); MEAN CELL VOLUME 91.6 fl (80-96); MEAN PLT VOLUME 9.6 fl (7.5-11.1); MONO % 7.5 % (3.8-10.2); NEUT % 54.5 % (42.8-82.8); PLATELET COUNT 196 K/MM3 (134-434); RBC 2.36 M/mm3 (3.60-5.2); RDW 20.9 % (11.6-15.6); WHITE BLOOD COUNT 7.4 K/mm3 (4.0-10.0)
[2020-01-15 09:35] LABS: HEMOGLOBIN 6.7 GM/dL (10.7-15.3)
[2020-01-15] MEDS ORDERED: FERRIC CARBOXYMALTOSE 750 MG in SODIUM CHLORIDE 250 ML IVPB ONE (10:00)
[2020-01-15 10:39] LABS: ANISOCYTOSIS 1+; MACROCYTOSIS 0; PLATELET ESTIMATE NORMAL
[2020-01-15 11:34] LABS: BASO % 0.4 % (0-2.0); EOS % 1.6 % (0-4.5); HEMATOCRIT 23.8 % (32.4-45.2); HEMOGLOBIN 7.5 GM/dL (10.7-15.3); LYMPH % 40.6 % (8-40); MCH 28.6 pg (25.7-33.7); MCHC 31.3 g/dl (32.0-36.0); MEAN CELL VOLUME 91.6 fl (80-96); MEAN PLT VOLUME 8.7 fl (7.5-11.1); MONO % 6.7 % (3.8-10.2); NEUT % 50.7 % (42.8-82.8); PLATELET COUNT 210 K/MM3 (134-434); RDW 21.5 % (11.6-15.6); WHITE BLOOD COUNT 8.6 K/mm3 (4.0-10.0)
[2020-01-15 14:22] VITALS: BP 163/42; PULSE 59; TEMP 98.4
== END 2020-01-15 12:00 | disposition home or self-care (01) ==
LOC: JONCNONCHE 07:20
PROVIDERS: ATTEND Internal Medicine Hematology & Oncology
PROC: 3E033GC Introduction of Other Therapeutic Substance into Peripheral Vein, Percutaneous Approach (ICD-10-PCS; principal; 2020-01-15)
DX: D50.9 Iron deficiency anemia, unspecified (principal)
CPT/HCPCS: 36415; 85025; 86850; 86900; 86901; 96365; J1439

== ENCOUNTER 2020-01-20 10:37 | Day surgery (SDC) | payer OTHER ==
[2020-01-20 09:22] LABS: BASO % 0.5 % (0-2.0); EOS % 1.3 % (0-4.5); HEMATOCRIT 21.7 % (32.4-45.2); LYMPH % 34.6 % (8-40); MCH 29.6 pg (25.7-33.7); MCHC 31.2 g/dl (32.0-36.0); MEAN PLT VOLUME 8.8 fl (7.5-11.1); MONO % 8.1 % (3.8-10.2); NEUT % 55.5 % (42.8-82.8); PLATELET COUNT 181 K/MM3 (134-434); RBC 2.29 M/mm3 (3.60-5.2); WHITE BLOOD COUNT 7.3 K/mm3 (4.0-10.0)
[2020-01-20 09:57] LABS: LDH 185 U/L (84-246)
[2020-01-20 09:58] LABS: ALBUMIN 3.2 g/dl (3.4-5.0); ALK PHOS 81 U/L (45-117); ANION GAP 9 MMOL/L (8-16); BILIRUBIN,TOTAL 0.3 mg/dL (0.2-1); BLOOD UREA NITROGEN 23.8 mg/dL (7-18); CALCIUM 7.9 mg/dL (8.5-10.1); CHLORIDE 107 mmol/L (98-107); CO2 26 mmol/L (21-32); CREATININE 0.7 mg/dL (0.55-1.3); GLUCOSE,RANDOM 148 mg/dL (74-106); IRON SERUM 75 ug/dL (50-175); SGOT/AST 22 U/L (15-37); SGPT/ALT 19 U/L (13-61); SODIUM 141 mmol/L (136-145); TOT PROT 5.4 g/dl (6.4-8.2)
[2020-01-20 10:09] LABS: TOTAL IRON BINDING CAPACITY 247 ug/dL (250-450)
[2020-01-20 10:19] LABS: HEMOGLOBIN 6.8 GM/dL (10.7-15.3)
[2020-01-20 10:32] LABS: ANISOCYTOSIS 2+; MACROCYTOSIS 2+; PLATELET ESTIMATE NORMAL
[2020-01-20 10:34] LABS: ERYTHROCYTE SEDIMENTATION RATE 33 mm/hr (0-30)
[2020-01-20 16:55] VITALS: BP 168/55; PULSE 61; TEMP 98.3
== END 2020-01-20 16:45 | disposition home or self-care (01) ==
LOC: JONCBLOOD 10:37
PROVIDERS: ATTEND Internal Medicine Hematology & Oncology
PROC: 30233N1 Transfusion of Nonautologous Red Blood Cells into Peripheral Vein, Percutaneous Approach (ICD-10-PCS; principal; 2020-01-20)
DX: D50.9 Iron deficiency anemia, unspecified (principal); I25.10 Atherosclerotic heart disease of native coronary artery without angina pectoris; I10 Essential (primary) hypertension; E78.00 Pure hypercholesterolemia, unspecified
CPT/HCPCS: 36415; 36430; 80053; 82728; 83010; 83540; 83550; 83615; 85025; 85651; 86038; 86140; 86850; 86880; 86900; 86901; 86922; P9058

== ENCOUNTER 2020-03-09 08:18 | Day surgery (SDC) | payer OTHER ==
[~2020-03-09 08:18] MED LIST: FERRIC CARBOXYMALTOSE 750 MG in SODIUM CHLORIDE 250 ML IVPB ONE
--- OUTSIDE RECORDS SUMMARY | 2020-03-09 08:22 | XMS ---
:1940 [facility] Care Team Providers Name Role Phone BETTY SIMMONS Unavailable Unavailable Re-disclosure Warning The records that you are about to access may contain information from federally- assisted alcohol or drug abuse programs. If such information is present, then the following federally mandated warning applies: This information has been disclosed to you from records protected by federal confidentiality rules (42 CFR part 2). The federal rules prohibit you from making any further disclosure of this information unless further disclosure is expressly permitted by the written consent of the person to whom it pertains or as otherwise permitted by 42 CFR part 2. A general authorization for the release of medical or other information is NOT sufficient for this purpose. The Federal rules restrict any use of the information to criminally investigate or prosecute any alcohol or drug abuse patient.The records that you are about to access may contain highly sensitive health information, the redisclosure of which is protected by Article 27-F of the [facility] Public Health law. If you continue you may haveaccess to information: Regarding HIV / AIDS; Provided by facilities licensed or operated by the [facility] Office of Mental Health; or Provided by the [facility] Office for People With Developmental Disabilities. If such information is present, then the following [facility] mandated warning applies: This information has been disclosed to you from confidential records which are protected by state law. State law prohibits you from making any further disclosure of this information without the specific written consent of the person to whom it pertains, or as otherwise permitted by law. Any unauthorized further disclosure in violation of state law may result in a fine or prison sentence or both. A general authorization for the release of medical or other information is NOT sufficient authorization for further disclosure. Encounters Encounter Providers Location Date Indications Data Source(s ) Outpatient Attender: 02/25/2019 D50.9 D12.6 [facility] komal TROY, 09:27:00 AM Health Ca re DIMITRIOSAdmitter: EDT Corpor ation DAWSONMARY CARLAIOSReferrer: CARLA SIMMONSIOS D50.9 D12.6 Outpatient Attender: TROY, 02/25/2019 D50.9 D12.6 [facility] DIMITRIOSAdmitter: 06:00:00 AM EDT H ealth Care DAWSONLIAMSTAT, Corporatio n DIMITRIOSReferrer: DAWSONMARY BETTY D50.9 D12.6 Insurance Providers Payer name Policy type Policy ID Covered Covered constitution party's Policy P claudia / Coverage constitution party ID relationship to Gtz Inf ormation type gtz [employer] [id number] SP [id number] MED FUND [place] [id number] SP [id number] HEALTHCARE (MEDICARE) [employer] [id number] SP [id number] HCARE MANAGEMENT LOCAL 210 C/O [id number] SP [id number] [employer]D HLTHCR [place] [id number] SP [id number] LOCAL 210 [employer] [id number] SP [id number] LOCAL 10 [place] [id number] SP [id number] HEALTHCARE (MEDICARE) MEDICARE [id number] SP [id number] [id number] LOCAL 210 [id number] SP [id number] [facility] [id number] SP [id number] HEALTH MEDICARE [id number] SP [id number] D MEDICARE [id number] SP [id number] D Problems, Conditions, and Diagnoses Code Display Name Description Problem Type Effective Data Sour ce(s) Dates Z82.49 Family history of FAMILY HX OF Diagnosis 02/25/2019 [facility] cano ischemic heart ISCHEM HEART DIS 09:27:00 AM Cou nty Health disease and other AND OTH DIS OF EDT Car e diseases of the THE CIRC SYS Corpora tion circulatory system Z80.0 Family history of FAMILY HISTORY OF Diagnosis 02/25/2019 [facility] malignant neoplasm MALIGNANT 09:27:00 AM Count y Health of digestive organs NEOPLASM OF EDT Care DIGESTIVE ORGANS Corporat ion Z95.5 Presence of coronary PRESENCE OF Diagnosis 02/25/2019 [place] angioplasty implant CORONARY 09:27:00 AM Coun [facility] and graft ANGIOPLASTY EDT Care IMPLANT AND GRAFT Corpora tion I25.10 Atherosclerotic ATHSCL HEART Diagnosis 02/25/2019 [facility] heart disease of DISEASE OF [place] 09:27:00 AM [facility] [place] coronary CORONARY ARTERY EDT Care artery without W/O ANG PCTRS Corpora tion angina pectoris I10 Essential (primary) ESSENTIAL Diagnosis 02/25/2019 [facility] [place] hypertension (PRIMARY) 09:27:00 AM [facility] HYPERTENSION EDT Care TBS K44.9 Diaphragmatic hernia DIAPHRAGMATIC Diagnosis 02/25/2019 [place] without obstruction HERNIA WITHOUT 09:27:00 AM [facility] or gangrene OBSTRUCTION OR EDT Care [employer] D50.9 Iron deficiency IRON DEFICIENCY Diagnosis 02/25/2019 [place] arielle anemia, unspecified ANEMIA, 09:27:00 AM [facility] UNSPECIFIED EDT Care Corporation
[2020-03-09] MEDS ORDERED: FERRIC CARBOXYMALTOSE 750 MG in SODIUM CHLORIDE 250 ML IVPB ONE (10:00)
[2020-03-09 12:01] LABS: BASO % 0.7 % (0-2.0); EOS % 1.5 % (0-4.5); HEMATOCRIT 21.7 % (32.4-45.2); MCH 30.6 pg (25.7-33.7); MCHC 31.1 g/dl (32.0-36.0); MEAN CELL VOLUME 98.3 fl (80-96); MEAN PLT VOLUME 9.7 fl (7.5-11.1); MONO % 8.8 % (3.8-10.2); PLATELET COUNT 197 K/MM3 (134-434); RBC 2.21 M/mm3 (3.60-5.2); RDW 20.5 % (11.6-15.6); WHITE BLOOD COUNT 6.7 K/mm3 (4.0-10.0)
[2020-03-09 12:03] LABS: HEMOGLOBIN 6.8 GM/dL (10.7-15.3)
[2020-03-09 14:08] LABS: ANISOCYTOSIS 2+; MACROCYTOSIS 1+; PLATELET ESTIMATE NORMAL
[2020-03-09 15:56] VITALS: TEMP 98.2
[2020-03-09 15:58] VITALS: BP 141/44; PULSE 59
== END 2020-03-09 12:55 | disposition home or self-care (01) ==
LOC: JONCNONCHE 08:18
PROVIDERS: ATTEND Internal Medicine Hematology & Oncology
PROC: 3E033GC Introduction of Other Therapeutic Substance into Peripheral Vein, Percutaneous Approach (ICD-10-PCS; principal; 2020-03-09)
DX: I50.9 Heart failure, unspecified (principal)
CPT/HCPCS: 36415; 36430; 85025; 86850; 86900; 86901; 86922; 96365; J1439; P9058

== ENCOUNTER 2020-03-10 10:08 | Day surgery (SDC) | payer OTHER ==
[2020-03-10 19:52] VITALS: BP 144/66; PULSE 80; TEMP 98.6
== END 2020-03-10 19:55 | disposition home or self-care (01) ==
LOC: JONCBLOOD 10:08 → J7W 11:06 → JONCBLOOD 19:55
PROVIDERS: ATTEND Internal Medicine Hematology & Oncology
PROC: 30233N1 Transfusion of Nonautologous Red Blood Cells into Peripheral Vein, Percutaneous Approach (ICD-10-PCS; principal; 2020-03-10)
DX: D64.9 Anemia, unspecified (principal)
CPT/HCPCS: 86922

== ENCOUNTER 2020-03-30 07:33 | Day surgery (SDC) | payer OTHER ==
--- OUTSIDE RECORDS SUMMARY | 2020-03-30 07:36 | XMS ---
:1940 Author Organization [facility] Care Team Providers Name Role Phone CARLA SIMMONS Unavailable Unavailable Re-disclosure Warning The records [...] is protected by Article 27-F of the [facility] Public Health law. If you continue you may haveaccess to information: Regarding HIV / AIDS; Provided by facilities licensed or operated by the [facility] Office of Mental Health; or Provided by the [facility] Office for People With Developmental Disabilities. If such information is present, then the following [facility] mandated warning applies: This information has [...] law may result in a fine or group home sentence or both. A general authorization for the release of medical or other information is NOT sufficient authorization for further disclosure. Encounters Encounter Providers Location Date Indications Data Source(s ) Outpatient Attender: 02/25/2019 D50.9 D12.6 [facility] ADDYSTAT, 09:27:00 AM Health Ca re DIMITRAdmitter: EDT Corporati on GEORLIAMSTATHIS, DIMITRReferrer: ADDYSTAT, DIMITR D50.9 D12.6 Outpatient Attender: 02/25/2019 D50.9 D12.6 [facility] ADDYSTAT, 06:00:00 AM EDT Healt h Care DIMITRAdmitter: Corporati on GEORGOSTATHIS, DIMITRReferrer: ADDYSTATHIS, DIMITR D50.9 D12.6 Insurance Providers Payer name Policy type Policy ID Covered Covered democrat's Policy P claudia / Coverage democrat ID relationship to Gtz Inf ormation type gtz [employer] [id number] SP [id number] MED FUND [place] [id number] SP [id number] HEALTHCARE (MEDICARE) [employer] [id number] SP [id number] HCARE MANAGEMENT LOCAL 210 C/O [id number] SP [id number] [employer] HLTHCR [employer] [id number] SP [id number] LOCAL 210 [employer] [id number] SP [id number] LOCAL 10 [place] [id number] SP [id number] HEALTHCARE (MEDICARE) MEDICARE [id number] SP [id number] [id number] LOCAL 210 [id number] SP [id number] [facility] [id number] SP [id number] HEALTH MEDICARE [id number] SP [id number] D MEDICARE [id number] SP [id number] D Problems, Conditions, and Diagnoses Code Display Name Description Problem Type Effective Data Sour ce(s) Dates Z82.49 Family history of FAMILY HX OF Diagnosis 02/25/2019 [facility] cano ischemic heart ISCHEM HEART DIS 09:27:00 AM Cou nty Health disease and other AND OTH DIS OF EDT Car e diseases of the THE [employer] S[employer] Corpora tion circulatory system Z80.0 Family history of FAMILY HISTORY OF Diagnosis 02/25/2019 [place] malignant neoplasm MALIGNANT 09:27:00 AM Count y Health of digestive organs NEOPLASM OF EDT Care DIGESTIVE ORGANS Corporat ion Z95.5 Presence of coronary PRESENCE OF Diagnosis 02/25/2019 [place] angioplasty implant CORONARY 09:27:00 AM Coun [facility] and graft ANGIOPLASTY EDT Care IMPLANT AND GRAFT Corpora tion I25.10 Atherosclerotic ATHSCL HEART Diagnosis 02/25/2019 [facility] ster heart disease of DISEASE OF [place] 09:27:00 AM [facility] [place] coronary CORONARY ARTERY EDT Care artery without W/O ANG PCTRS Corpora tion angina pectoris I10 Essential (primary) ESSENTIAL Diagnosis 02/25/2019 [facility] cano hypertension (PRIMARY) 09:27:00 AM [facility] HYPERTENSION EDT Care Corporation K44.9 Diaphragmatic hernia DIAPHRAGMATIC Diagnosis 02/25/2019 [place] without obstruction HERNIA WITHOUT 09:27:00 AM [facility] or gangren OBSTRUCTION OR EDT Care [employer] D50.9 Iron deficiency IRON DEFICIENCY Diagnosis 02/25/2019 [place] arielle anemia, unspecified ANEMIA, 09:27:00 AM [facility] UNSPECIFIED EDT Care Corporation
[2020-03-30 10:50] LABS: CHLORIDE 107 mmol/L (98-107); POTASSIUM 3.8 mmol/L (3.5-5.1); SODIUM 141 mmol/L (136-145)
[2020-03-30 10:52] LABS: CALCIUM 8.1 mg/dL (8.5-10.1)
[2020-03-30 10:53] LABS: ALBUMIN 3.2 g/dl (3.4-5.0); ANION GAP 5 MMOL/L (8-16); BLOOD UREA NITROGEN 23.4 mg/dL (7-18); CO2 29 mmol/L (21-32); GLUCOSE,RANDOM 172 mg/dL (74-106)
[2020-03-30 10:56] LABS: CREATININE 0.6 mg/dL (0.55-1.3); IRON SERUM 54 ug/dL (50-175); SGOT/AST 49 U/L (15-37); SGPT/ALT 59 U/L (13-61)
[2020-03-30 10:57] LABS: BILIRUBIN,TOTAL 0.2 mg/dL (0.2-1); IRON SERUM 52 ug/dL (50-175); TOTAL IRON BINDING CAPACITY 256 ug/dL (250-450)
[2020-03-30 10:58] LABS: TOT PROT 5.4 g/dl (6.4-8.2)
[2020-03-30 10:59] LABS: ALK PHOS 99 U/L (45-117)
[2020-03-30 12:00] LABS: BASO % 0.5 % (0-2.0); EOS % 1.4 % (0-4.5); HEMATOCRIT 24.1 % (32.4-45.2); HEMOGLOBIN 7.5 GM/dL (10.7-15.3); MCH 30.8 pg (25.7-33.7); MCHC 31.3 g/dl (32.0-36.0); MEAN CELL VOLUME 98.6 fl (80-96); MEAN PLT VOLUME 10.2 fl (7.5-11.1); NEUT % 53.1 % (42.8-82.8); PLATELET COUNT 193 K/MM3 (134-434); RBC 2.44 M/mm3 (3.60-5.2); WHITE BLOOD COUNT 5.4 K/mm3 (4.0-10.0)
[2020-03-30 16:45] VITALS: BP 148/58; PULSE 73; TEMP 98
== END 2020-03-30 16:00 | disposition home or self-care (01) ==
LOC: JONCNONCHE 07:33
PROVIDERS: ATTEND Internal Medicine Hematology & Oncology
PROC: 30233N1 Transfusion of Nonautologous Red Blood Cells into Peripheral Vein, Percutaneous Approach (ICD-10-PCS; principal; 2020-03-30)
DX: D64.9 Anemia, unspecified (principal)
CPT/HCPCS: 36415; 36430; 80053; 82378; 82607; 82728; 83540; 83550; 85025; 85651; 86038; 86140; 86304; 86431; 86850; 86900; 86901; 86922; P9058

== ENCOUNTER 2020-05-05 06:05 | Day surgery (SDC) | payer OTHER ==
[2020-05-05 08:22] LABS: BASO % 0.5 % (0-2.0); EOS % 1.9 % (0-4.5); HEMATOCRIT 20.1 % (32.4-45.2); LYMPH % 30.8 % (8-40); MCH 29.9 pg (25.7-33.7); MCHC 30.6 g/dl (32.0-36.0); MEAN CELL VOLUME 97.8 fl (80-96); MEAN PLT VOLUME 9.3 fl (7.5-11.1); MONO % 9.5 % (3.8-10.2); NEUT % 57.3 % (42.8-82.8); PLATELET COUNT 204 K/MM3 (134-434); RBC 2.05 M/mm3 (3.60-5.2); RDW 15.1 % (11.6-15.6); WHITE BLOOD COUNT 5.8 K/mm3 (4.0-10.0)
[2020-05-05 08:48] LABS: HEMOGLOBIN 6.1 GM/dL (10.7-15.3)
[2020-05-05 14:32] VITALS: PULSE 62
[2020-05-05 17:08] VITALS: BP 169/56; TEMP 98.5
== END 2020-05-05 17:55 | disposition home or self-care (01) ==
LOC: JONCBLOOD 06:05
PROVIDERS: ATTEND Internal Medicine Hematology & Oncology
PROC: 30233N1 Transfusion of Nonautologous Red Blood Cells into Peripheral Vein, Percutaneous Approach (ICD-10-PCS; principal; 2020-05-05)
DX: D64.9 Anemia, unspecified (principal)
CPT/HCPCS: 36415; 36430; 82728; 83540; 83550; 85025; 86850; 86900; 86901; 86922; P9058

== ENCOUNTER 2020-11-07 20:49 | Emergency (ER) | payer OTHER ==
[2020-11-07 20:58] VITALS: BP 193/77; PULSE 68; TEMP 97.9; BMI 31.3
[2020-11-07] MEDS ORDERED: ACETAMINOPHEN 325 MG TABLET (FP) PO ONE (21:22)
[2020-11-07] MEDS ORDERED: ACETAMINOPHEN 325 MG TABLET (FP) ONE (21:23)
== END 2020-11-07 21:58 | disposition home or self-care (01) ==
LOC: FER 20:49
DX: M25.562 Pain in left knee (principal); M17.12 Unilateral primary osteoarthritis, left knee
CPT/HCPCS: 73560-TC-LT-FY; 93971-LT; 99284-25

== ENCOUNTER 2021-10-18 17:08 | Emergency (ER) | payer OTHER ==
[2021-10-18 17:21] VITALS: BP 149/73; PULSE 60; TEMP 98.2; BMI 31.9
[2021-10-18 21:03] LABS: BASO % 0.8 % (0-2.0); EOS % 2.3 % (0-4.5); HEMOGLOBIN 10.4 GM/dL (10.7-15.3); LYMPH % 35.3 % (8-40); MCH 28.6 pg (25.7-33.7); MCHC 32.4 g/dl (32.0-36.0); MEAN CELL VOLUME 88.1 fl (80-96); MEAN PLT VOLUME 9.9 fl (7.5-11.1); MONO % 8.9 % (3.8-10.2); NEUT % 52.7 % (42.8-82.8); PLATELET COUNT 251 10^3/uL (134-434); RBC 3.64 M/mm3 (3.60-5.2); RDW 16.1 % (11.6-15.6); WHITE BLOOD COUNT 7.5 K/mm3 (4.0-10.0)
[2021-10-18 21:21] LABS: EPI CELLS 14 /uL (0-25.1); HYALINE CASTS 1 /uL (0-3.1); PH,URINE 5.5 (5.0-8.0); URINE APPEARANCE CLEAR; URINE BACTERIA 164 /uL (0-1359); URINE BILIRUBIN NEGATIVE (NEGATIVE); URINE COLOR YELLOW; URINE GLUCOSE (UA) NEGATIVE (NEGATIVE); URINE KETONE NEGATIVE (NEGATIVE); URINE LEUK ESTERASE 1+ (NEGATIVE); URINE NITRITE NEGATIVE (NEGATIVE); URINE PROTEIN NEGATIVE (NEGATIVE); URINE RBC 21 /uL (0-23.9); URINE UROBILINOGEN 0.2 mg/dL (0.2-1.0); URINE WBC 23 /uL (0-25.8)
[2021-10-18 21:31] LABS: CALCIUM 8.8 mg/dL (8.5-10.1)
[2021-10-18 21:32] LABS: ALBUMIN 3.3 g/dl (3.4-5.0); BLOOD UREA NITROGEN 15.7 mg/dL (7-18); MAGNESIUM 2.3 mg/dL (1.8-2.4)
[2021-10-18 21:35] LABS: CREATININE 0.6 mg/dL (0.55-1.3); PHOSPHOROUS 3.1 mg/dL (2.5-4.9)
[2021-10-18 21:37] LABS: BILIRUBIN,TOTAL 0.4 mg/dL (0.2-1)
== END 2021-10-19 00:04 | disposition left against medical advice (07) ==
LOC: JER 17:08
DX: R53.1 Weakness (principal); R26.81 Unsteadiness on feet
CPT/HCPCS: 0241U-QW; 36415; 70450-TC; 71045-TC-FY; 72125-TC; 80053; 81003; 83735; 84100; 84443; 84484; 85025; 87086; 87186; 93005; 93010; 99285-25

== ENCOUNTER 2021-11-29 22:14 | Emergency (ER) | payer OTHER ==
[2021-11-29 22:19] VITALS: BP 154/78; PULSE 61; TEMP 98.1; BMI 30.9
[2021-11-29] MEDS ORDERED: BACITRACIN 15 GM TUBE TOPICAL OINTMENT TP ONE (22:42)
[2021-11-29] MEDS ORDERED: ACETAMINOPHEN 325 MG TABLET (FP) PO ONE (22:42)
[2021-11-29] MEDS ORDERED: ACETAMINOPHEN 325 MG TABLET (FP) ONE (23:27)
[2021-11-29] MEDS ORDERED: BACITRACIN 0.9 GM PACKET ONE (23:29)
[2021-11-30] MEDS ORDERED: BACITRACIN 0.9 GM PACKET ONE (00:58)
[2021-11-30] MEDS ORDERED: BACITRACIN 15 GM TUBE TOPICAL OINTMENT TP ONE (00:59)
== END 2021-11-30 01:09 | disposition home or self-care (01) ==
LOC: JER 22:14
DX: S00.81XA Abrasion of other part of head, initial encounter (principal); W01.0XXA Fall on same level from slipping, tripping and stumbling without subsequent striking against object, initial encounter
CPT/HCPCS: 70450-TC; 70486-TC; 72125-TC; 99284-25

== ENCOUNTER 2022-02-19 19:19 | Observation (INO) | payer OTHER ==
[2022-02-19] MEDS ORDERED: ACETAMINOPHEN 1000 MG/100 ML BAG IVPB ONE (20:35)
[2022-02-19] MEDS ORDERED: ONDANSETRON 4 MG/2 ML VIAL IVPUSH ONE (20:35)
[2022-02-19] MEDS ORDERED: ACETAMINOPHEN INJECTION 100 ML IVPB ONE (21:47)
[2022-02-19] MEDS ORDERED: ONDANSETRON 4 MG/2 ML VIAL ONE (21:47)
[2022-02-19 22:10] LABS: BASO % 0.5 % (0-2.0); HEMATOCRIT 30.6 % (32.4-45.2); HEMOGLOBIN 9.7 GM/dL (10.7-15.3); LYMPH % 11.8 % (8-40); MCH 27.5 pg (25.7-33.7); MCHC 31.6 g/dl (32.0-36.0); MEAN PLT VOLUME 10.4 fl (7.5-11.1); MONO % 7.1 % (3.8-10.2); NEUT % 80.6 % (42.8-82.8); PLATELET COUNT 184 10^3/uL (134-434); RBC 3.51 M/mm3 (3.60-5.2); RDW 15.6 % (11.6-15.6); WHITE BLOOD COUNT 15.7 K/mm3 (4.0-10.0)
[2022-02-19 22:30] LABS: CALCIUM 8.4 mg/dL (8.5-10.1)
[2022-02-19 22:31] LABS: ALBUMIN 3.3 g/dl (3.4-5.0); BLOOD UREA NITROGEN 17.5 mg/dL (7-18)
[2022-02-19 22:33] LABS: CREATININE 0.7 mg/dL (0.55-1.3)
[2022-02-19 22:35] LABS: BILIRUBIN,TOTAL 0.9 mg/dL (0.2-1); TOT PROT 5.9 g/dl (6.4-8.2)
[2022-02-19 22:35] LABS: PH,URINE 5.5 (5.0-8.0); URINE APPEARANCE CLEAR; URINE BILIRUBIN NEGATIVE (NEGATIVE); URINE COLOR YELLOW; URINE GLUCOSE (UA) NEGATIVE (NEGATIVE); URINE KETONE NEGATIVE (NEGATIVE); URINE LEUK ESTERASE NEGATIVE (NEGATIVE); URINE NITRITE NEGATIVE (NEGATIVE); URINE PROTEIN NEGATIVE (NEGATIVE); URINE UROBILINOGEN 0.2 mg/dL (0.2-1.0)
[2022-02-20 07:07] LABS: BASO % 0.4 % (0-2.0); EOS % 0.1 % (0-4.5); HEMATOCRIT 29.5 % (32.4-45.2); HEMOGLOBIN 9.5 GM/dL (10.7-15.3); LYMPH % 14.4 % (8-40); MCH 28.2 pg (25.7-33.7); MCHC 32.3 g/dl (32.0-36.0); MEAN CELL VOLUME 87.2 fl (80-96); MEAN PLT VOLUME 9.9 fl (7.5-11.1); MONO % 9.9 % (3.8-10.2); NEUT % 75.2 % (42.8-82.8); PLATELET COUNT 179 10^3/uL (134-434); RBC 3.38 M/mm3 (3.60-5.2); RDW 15.4 % (11.6-15.6); WHITE BLOOD COUNT 15.2 K/mm3 (4.0-10.0)
[2022-02-20 07:29] LABS: BLOOD UREA NITROGEN 18.2 mg/dL (7-18); CALCIUM 8.4 mg/dL (8.5-10.1)
[2022-02-20 07:30] LABS: ALBUMIN 3.2 g/dl (3.4-5.0)
[2022-02-20 07:33] LABS: CREATININE 0.7 mg/dL (0.55-1.3)
[2022-02-20 07:34] LABS: TOT PROT 5.7 g/dl (6.4-8.2)
[2022-02-20] MEDS ORDERED: DOCUSATE SODIUM 100 MG CAPSULE (FP) PO SCH (10:00)
[2022-02-20] MEDS ORDERED: ASPIRIN 81 MG CHEWABLE TABLETS ONE (10:29)
[2022-02-20] MEDS ORDERED: ASCORBIC ACID 500 MG TABLET (FP) ONE (10:29)
[2022-02-20] MEDS ORDERED: DULoxetine HCL 30 MG CAPSULE.DR PO ONE ×2 (10:30→10:38)
[2022-02-20] MEDS ORDERED: DOCUSATE SODIUM 100 MG CAPSULE (FP) PO ONE (10:30)
[2022-02-20] MEDS ORDERED: VALSARTAN 80 MG TABLET ONE (10:30)
[2022-02-20] MEDS ORDERED: FERROUS SO4 325 MG TABLET (FP) ONE (10:31)
[2022-02-20] MEDS ORDERED: FUROSEMIDE 20 MG TABLET (FP) ONE (10:31)
[2022-02-20] MEDS ORDERED: LIDOCAINE 5% TOPICAL PATCH ONE (10:32)
[2022-02-20] MEDS: FUROSEMIDE 20 MG TABLET (FP) PO SCH (10:55)
[2022-02-20] MEDS: ASPIRIN 81 MG CHEWABLE TABLETS PO SCH (11:08)
[2022-02-20] MEDS: DULoxetine HCL 30 MG CAPSULE.DR PO SCH (11:08)
[2022-02-20] MEDS: LIDOCAINE 5% TOPICAL PATCH TP SCH (11:09)
[2022-02-20] MEDS: PRAMIPEXOLE DIHYDROCHLORIDE 0.5 MG TABLET PO SCH ×2 (11:09→22:33)
[2022-02-20] MEDS: FERROUS SO4 325 MG TABLET (FP) PO SCH (11:09)
[2022-02-20] MEDS: VALSARTAN 80 MG TABLET PO SCH ×2 (11:09→22:33)
[2022-02-20] MEDS: ASCORBIC ACID 500 MG TABLET (FP) PO SCH (11:09)
[2022-02-20] MEDS: CEFTRIAXONE 1 GM in DEXTROSE 5%-WATER - 50 ML IVPB SCH (18:47)
[2022-02-20] MEDS: LIDOCAINE PATCH REMOVAL MC SCH (22:33)
[2022-02-20] MEDS: EZETIMIBE 10 MG TABLET (FP) PO SCH (22:33)
[2022-02-20] MEDS: ATORVASTATIN CA 40 MG TABLET (FP) PO SCH (22:33)
[2022-02-20 23:27] VITALS: BMI 31.8
[2022-02-21 08:35] LABS: BASO % 0.3 % (0-2.0); EOS % 0.1 % (0-4.5); HEMATOCRIT 28.2 % (32.4-45.2); LYMPH % 16.5 % (8-40); MCH 27.8 pg (25.7-33.7); MEAN CELL VOLUME 86.7 fl (80-96); MEAN PLT VOLUME 9.9 fl (7.5-11.1); MONO % 10.2 % (3.8-10.2); NEUT % 72.9 % (42.8-82.8); PLATELET COUNT 171 10^3/uL (134-434); RBC 3.25 M/mm3 (3.60-5.2); RDW 15.7 % (11.6-15.6)
[2022-02-21] MEDS ORDERED: BISACODYL 10 MG SUPP.RECT PR PRN (09:11)
[2022-02-21 09:15] LABS: CALCIUM 8.3 mg/dL (8.5-10.1)
[2022-02-21 09:16] LABS: ALBUMIN 2.7 g/dl (3.4-5.0); BLOOD UREA NITROGEN 22.7 mg/dL (7-18); CREATININE 0.8 mg/dL (0.55-1.3)
[2022-02-21 09:18] LABS: TOT PROT 5.3 g/dl (6.4-8.2)
[2022-02-21] MEDS ORDERED: POLYETHYLENE GLYCOL (HEALTHYLAX) 3350 17 GM PACKET PO SCH (10:00)
[2022-02-21] MEDS: POLYETHYLENE GLYCOL (HEALTHYLAX) 3350 17 GM PACKET PO SCH ×2 (10:23→22:47)
[2022-02-21] MEDS: CEFTRIAXONE 1 GM in DEXTROSE 5%-WATER - 50 ML IVPB SCH (10:23)
[2022-02-21] MEDS: LIDOCAINE 5% TOPICAL PATCH TP SCH (10:24)
[2022-02-21] MEDS: PRAMIPEXOLE DIHYDROCHLORIDE 0.5 MG TABLET PO SCH ×2 (10:25→22:47)
[2022-02-21] MEDS: VALSARTAN 80 MG TABLET PO SCH ×2 (10:26→22:47)
[2022-02-21] MEDS: FUROSEMIDE 20 MG TABLET (FP) PO SCH (10:26)
[2022-02-21] MEDS: ASCORBIC ACID 500 MG TABLET (FP) PO SCH (10:26)
[2022-02-21] MEDS: ASPIRIN 81 MG CHEWABLE TABLETS PO SCH (10:26)
[2022-02-21] MEDS: DULoxetine HCL 30 MG CAPSULE.DR PO SCH (10:26)
[2022-02-21] MEDS: FERROUS SO4 325 MG TABLET (FP) PO SCH (10:26)
[2022-02-21] MEDS: PANTOPRAZOLE SODIUM 40 MG VIAL IVPUSH SCH ×2 (10:27)
[2022-02-21] MEDS: ATORVASTATIN CA 40 MG TABLET (FP) PO SCH (22:47)
[2022-02-21] MEDS: EZETIMIBE 10 MG TABLET (FP) PO SCH (22:49)
[2022-02-21] MEDS: LIDOCAINE PATCH REMOVAL MC SCH (22:54)
[2022-02-22] MEDS: LIDOCAINE 5% TOPICAL PATCH TP SCH (09:24)
[2022-02-22] MEDS: PRAMIPEXOLE DIHYDROCHLORIDE 0.5 MG TABLET PO SCH ×2 (09:25→21:30)
[2022-02-22] MEDS: POLYETHYLENE GLYCOL (HEALTHYLAX) 3350 17 GM PACKET PO SCH ×2 (09:25→21:27)
[2022-02-22] MEDS: VALSARTAN 80 MG TABLET PO SCH ×2 (09:25→21:29)
[2022-02-22] MEDS: ASPIRIN 81 MG CHEWABLE TABLETS PO SCH (09:25)
[2022-02-22] MEDS: FERROUS SO4 325 MG TABLET (FP) PO SCH (09:25)
[2022-02-22] MEDS: ASCORBIC ACID 500 MG TABLET (FP) PO SCH (09:25)
[2022-02-22] MEDS: DULoxetine HCL 30 MG CAPSULE.DR PO SCH (09:25)
[2022-02-22] MEDS: PANTOPRAZOLE SODIUM 40 MG VIAL IVPUSH SCH (09:26)
[2022-02-22] MEDS: CEFTRIAXONE 1 GM in DEXTROSE 5%-WATER - 50 ML IVPB SCH (09:26)
[2022-02-22 09:34] LABS: HEMATOCRIT 29.8 % (32.4-45.2); HEMOGLOBIN 9.4 GM/dL (10.7-15.3); MCH 27.3 pg (25.7-33.7); MCHC 31.7 g/dl (32.0-36.0); MEAN CELL VOLUME 86.3 fl (80-96); PLATELET COUNT 171 10^3/uL (134-434); RBC 3.45 M/mm3 (3.60-5.2); RDW 15.3 % (11.6-15.6); WHITE BLOOD COUNT 14.4 K/mm3 (4.0-10.0)
[2022-02-22 10:10] LABS: BLOOD UREA NITROGEN 21.3 mg/dL (7-18); CALCIUM 8.4 mg/dL (8.5-10.1); MAGNESIUM 2.1 mg/dL (1.8-2.4)
[2022-02-22 10:11] LABS: ALBUMIN 2.7 g/dl (3.4-5.0)
[2022-02-22 10:13] LABS: CREATININE 0.7 mg/dL (0.55-1.3)
[2022-02-22 10:15] LABS: TOT PROT 5.4 g/dl (6.4-8.2)
[2022-02-22 10:23] LABS: BILIRUBIN,TOTAL 0.8 mg/dL (0.2-1)
[2022-02-22 19:30] LABS: ANISOCYTOSIS 2+; MACROCYTOSIS 0; OVALOCYTE 1+
[2022-02-22] MEDS: ATORVASTATIN CA 40 MG TABLET (FP) PO SCH (21:30)
[2022-02-22] MEDS: EZETIMIBE 10 MG TABLET (FP) PO SCH (21:30)
[2022-02-23] MEDS: LIDOCAINE PATCH REMOVAL MC SCH (01:23)
[2022-02-23 05:42] VITALS: RESP 20
[2022-02-23 07:33] LABS: BASO % 0.3 % (0-2.0); EOS % 0.9 % (0-4.5); HEMATOCRIT 29.5 % (32.4-45.2); HEMOGLOBIN 9.5 GM/dL (10.7-15.3); LYMPH % 17.3 % (8-40); MCH 27.7 pg (25.7-33.7); MCHC 32.1 g/dl (32.0-36.0); MEAN CELL VOLUME 86.3 fl (80-96); MEAN PLT VOLUME 9.1 fl (7.5-11.1); MONO % 10.6 % (3.8-10.2); NEUT % 70.9 % (42.8-82.8); PLATELET COUNT 200 10^3/uL (134-434); RBC 3.42 M/mm3 (3.60-5.2); RDW 15.4 % (11.6-15.6); WHITE BLOOD COUNT 14.1 K/mm3 (4.0-10.0)
[2022-02-23] MEDS: ASPIRIN 81 MG CHEWABLE TABLETS PO SCH (10:30)
[2022-02-23] MEDS: VALSARTAN 80 MG TABLET PO SCH (10:30)
[2022-02-23] MEDS: POLYETHYLENE GLYCOL (HEALTHYLAX) 3350 17 GM PACKET PO SCH (10:31)
[2022-02-23] MEDS: FERROUS SO4 325 MG TABLET (FP) PO SCH (10:31)
[2022-02-23] MEDS: PRAMIPEXOLE DIHYDROCHLORIDE 0.5 MG TABLET PO SCH (10:31)
[2022-02-23] MEDS: LIDOCAINE 5% TOPICAL PATCH TP SCH (10:31)
[2022-02-23] MEDS: DULoxetine HCL 30 MG CAPSULE.DR PO SCH (10:32)
[2022-02-23] MEDS: CEFTRIAXONE 1 GM in DEXTROSE 5%-WATER - 50 ML IVPB SCH (10:32)
[2022-02-23] MEDS: ASCORBIC ACID 500 MG TABLET (FP) PO SCH (10:32)
[2022-02-23 14:02] VITALS: BP 150/60; PULSE 70; TEMP 98.7
[2022-02-23] MEDS ORDERED: LIPASE/PROTEASE/AMYLASE 36,000 UNIT CAPSULE PO SCH (17:30)
[2022-02-23] MEDS ORDERED: metroNIDAZOLE 250 MG TABLET PO SCH (22:00)
[2022-02-24] MEDS ORDERED: FUROSEMIDE 20 MG TABLET (FP) PO SCH (10:00)
== END 2022-02-23 17:00 | disposition home or self-care (01) ==
LOC: JER 19:19 → JERBED 21:06 → J7W 02-20 21:44
PROVIDERS: ADMIT Internal Medicine; ATTEND Family Medicine
PROC: 3E033NZ Introduction of Analgesics, Hypnotics, Sedatives into Peripheral Vein, Percutaneous Approach (ICD-10-PCS; principal; 2022-02-19)
PROC: 3E03329 Introduction of Other Anti-infective into Peripheral Vein, Percutaneous Approach (ICD-10-PCS; 2022-02-19)
PROC: 3E033GC Introduction of Other Therapeutic Substance into Peripheral Vein, Percutaneous Approach (ICD-10-PCS; 2022-02-19)
DX: N94.9 Unspecified condition associated with female genital organs and menstrual cycle (principal); R33.9 Retention of urine, unspecified; I25.10 Atherosclerotic heart disease of native coronary artery without angina pectoris; R79.89 Other specified abnormal findings of blood chemistry; I11.0 Hypertensive heart disease with heart failure; K59.00 Constipation, unspecified; R11.10 Vomiting, unspecified; D64.9 Anemia, unspecified; E11.9 Type 2 diabetes mellitus without complications; E66.8 Other obesity; Z68.31 Body mass index [BMI] 31.0-31.9, adult; D72.829 Elevated white blood cell count, unspecified; D21.9 Benign neoplasm of connective and other soft tissue, unspecified
CPT/HCPCS: 36415; 71045-TC-FY; 74177-TC; 80048; 80053; 81003; 82272; 82962; 83036; 83605; 83690; 83735; 83880; 84443; 84484; 85025; 85027; 87040; 87086; 93005; 93010; 96365; 96375; 97116-GP; 97161-GP; 99285-25; C9803-CS; G0378; Q9967; U0003; U0005

== ENCOUNTER 2023-01-24 11:40 | Inpatient (IN) | payer OTHER ==
[2023-01-24] MEDS ORDERED: ACETAMINOPHEN 1000 MG/100 ML BAG IVPB ONE (13:15)
[2023-01-24] MEDS ORDERED: ACETAMINOPHEN INJECTION 100 ML IVPB ONE (13:15)
[2023-01-24] MEDS ORDERED: ONDANSETRON 4 MG/2 ML VIAL ONE (13:15)
[2023-01-24] MEDS ORDERED: ONDANSETRON 4 MG/2 ML VIAL IVPUSH ONE (13:15)
[2023-01-24] MEDS ORDERED: SODIUM CHLORIDE 1,769 ML IV ONE (13:16)
[2023-01-24 13:18] LABS: HEMATOCRIT 33.4 % (32.4-45.2); HEMOGLOBIN 10.6 GM/dL (10.7-15.3); MCH 26.9 pg (25.7-33.7); MCHC 31.9 g/dl (32.0-36.0); MEAN CELL VOLUME 84.5 fl (80-96); MEAN PLT VOLUME 9.7 fl (7.5-11.1); PLATELET COUNT 210 10^3/uL (134-434); RBC 3.95 M/mm3 (3.60-5.2); RDW 19.7 % (11.6-15.6); WHITE BLOOD COUNT 15.5 K/mm3 (4.0-10.0)
[2023-01-24 13:40] LABS: CALCIUM 9.1 mg/dL (8.5-10.1)
[2023-01-24 13:41] LABS: BLOOD UREA NITROGEN 42.9 mg/dL (7-18)
[2023-01-24 13:43] LABS: INR 1.21 (0.83-1.09)
[2023-01-24 13:44] LABS: CREATININE 1.6 mg/dL (0.55-1.3)
[2023-01-24 13:45] LABS: BILIRUBIN,TOTAL 1.5 mg/dL (0.2-1); TOT PROT 7.1 g/dl (6.4-8.2)
[2023-01-24 13:46] LABS: ACTIVATED PTT 27.9 SECONDS (25.2-36.5)
[2023-01-24 13:55] LABS: ALBUMIN 3.9 g/dl (3.4-5.0)
[2023-01-24 13:59] LABS: ANISOCYTOSIS 1+; MACROCYTOSIS 0
[2023-01-24 15:16] LABS: EPI CELLS 20 /uL (0-25.1); HYALINE CASTS 1 /uL (0-3.1); URINE APPEARANCE CLEAR; URINE BACTERIA 52 /uL (0-1359); URINE BILIRUBIN NEGATIVE (NEGATIVE); URINE COLOR YELLOW; URINE GLUCOSE (UA) NEGATIVE (NEGATIVE); URINE KETONE NEGATIVE (NEGATIVE); URINE LEUK ESTERASE 2+ (NEGATIVE); URINE NITRITE NEGATIVE (NEGATIVE); URINE PROTEIN NEGATIVE (NEGATIVE); URINE RBC 38 /uL (0-23.9); URINE UROBILINOGEN 0.2 mg/dL (0.2-1.0); URINE WBC 400 /uL (0-25.8)
[2023-01-24] MEDS ORDERED: VANCOMYCIN 1,000 MG in DEXTROSE 5%-WATER - 250 ML IVPB ONE (19:17)
[2023-01-24] MEDS ORDERED: PIPERACILLIN/TAZOB 3.375 GM 3.375 GM in DEXTROSE 5%-WATER - 50 ML IVPB ONE (19:17)
[2023-01-24] MEDS ORDERED: VANCOMYCIN 1 GRAM (PRE-DOCKED) 1,000 MG/250 ML BAG IVPB ONE (19:24)
[2023-01-24] MEDS ORDERED: PIPERACILLIN/TAZOB 3.375 GM 3.375 GM/50 ML BAG IVPB ONE (19:25)
[2023-01-25] MEDS ORDERED: ATORVASTATIN CA 40 MG TABLET (FP) PO ONE (00:45)
[2023-01-25] MEDS ORDERED: EZETIMIBE 10 MG TABLET (FP) PO ONE (00:46)
[2023-01-25] MEDS: PRAMIPEXOLE DIHYDROCHLORIDE 0.5 MG TABLET PO SCH ×3 (01:41→21:11)
[2023-01-25] MEDS: PIPERACILLIN/TAZOB 2.25 GM 2.25 GM in DEXTROSE 5%-WATER - 50 ML IVPB SCH ×4 (02:51→21:11)
[2023-01-25 08:13] LABS: HEMATOCRIT 23.9 % (32.4-45.2); HEMOGLOBIN 7.7 GM/dL (10.7-15.3); MCH 27.4 pg (25.7-33.7); MEAN CELL VOLUME 85.6 fl (80-96); MEAN PLT VOLUME 10.2 fl (7.5-11.1); PLATELET COUNT 137 10^3/uL (134-434); RBC 2.79 M/mm3 (3.60-5.2); RDW 19.6 % (11.6-15.6); WHITE BLOOD COUNT 10.3 K/mm3 (4.0-10.0)
[2023-01-25 08:35] LABS: POTASSIUM 3.9 mmol/L (3.5-5.1)
[2023-01-25 08:37] LABS: CALCIUM 8.1 mg/dL (8.5-10.1)
[2023-01-25 08:38] LABS: BLOOD UREA NITROGEN 40.2 mg/dL (7-18)
[2023-01-25 08:41] LABS: CREATININE 1.3 mg/dL (0.55-1.3)
[2023-01-25 08:46] LABS: BILIRUBIN,TOTAL 1.2 mg/dL (0.2-1)
[2023-01-25 08:48] LABS: ALBUMIN 2.7 g/dl (3.4-5.0)
[2023-01-25] MEDS ORDERED: PIPERACILLIN/TAZOBACTAM 2.25 GM VIAL IVPB ONE (08:55)
[2023-01-25] MEDS: DULoxetine HCL 30 MG CAPSULE.DR PO SCH (09:17)
[2023-01-25 09:18] LABS: ANISOCYTOSIS 3+; MACROCYTOSIS 0
[2023-01-25] MEDS: FUROSEMIDE 20 MG TABLET (FP) PO SCH (09:19)
[2023-01-25] MEDS: ASCORBIC ACID 500 MG TABLET (FP) PO SCH (09:19)
[2023-01-25] MEDS: ASPIRIN 81 MG CHEWABLE TABLETS PO SCH (09:19)
[2023-01-25] MEDS: FOLIC ACID 1 MG TABLET (FP) PO SCH (09:19)
[2023-01-25] MEDS ORDERED: FERROUS SO4 325 MG TABLET (FP) PO SCH ×2 (10:00→17:30)
[2023-01-25] MEDS ORDERED: PANTOPRAZOLE 40 MG TABLET PO SCH (10:00)
[2023-01-25] MEDS: LIDOCAINE 5% TOPICAL PATCH TP SCH (11:54)
[2023-01-25] MEDS ORDERED: VANCOMYCIN 1 GM PREMIX - 1 GM/200 ML BAG IVPB SCH ×2 (19:00)
[2023-01-25 21:10] LABS: BASO % 0.8 % (0-2.0); EOS % 2.7 % (0-4.5); HEMATOCRIT 27.7 % (32.4-45.2); HEMOGLOBIN 8.8 GM/dL (10.7-15.3); LYMPH % 22.9 % (8-40); MCH 27.3 pg (25.7-33.7); MCHC 31.8 g/dl (32.0-36.0); MEAN CELL VOLUME 85.8 fl (80-96); MEAN PLT VOLUME 9.4 fl (7.5-11.1); MONO % 9.8 % (3.8-10.2); NEUT % 63.8 % (42.8-82.8); PLATELET COUNT 146 10^3/uL (134-434); RBC 3.22 M/mm3 (3.60-5.2); RDW 19.6 % (11.6-15.6); WHITE BLOOD COUNT 10.2 K/mm3 (4.0-10.0)
[2023-01-25] MEDS: EZETIMIBE 10 MG TABLET (FP) PO SCH (21:11)
[2023-01-25] MEDS: ATORVASTATIN CA 40 MG TABLET (FP) PO SCH (21:11)
[2023-01-25] MEDS: LIDOCAINE PATCH REMOVAL MC SCH (21:12)
[2023-01-25] MEDS: PANTOPRAZOLE SODIUM 40 MG VIAL IVPUSH SCH (21:12)
[2023-01-26] MEDS ORDERED: PIPERACILLIN/TAZOBACTAM 2.25 GM VIAL IVPB ONE (08:46)
[2023-01-26 09:02] LABS: HEMATOCRIT 24.3 % (32.4-45.2); HEMOGLOBIN 7.9 GM/dL (10.7-15.3); MCH 27.9 pg (25.7-33.7); MCHC 32.4 g/dl (32.0-36.0); MEAN CELL VOLUME 86.1 fl (80-96); MEAN PLT VOLUME 10.6 fl (7.5-11.1); PLATELET COUNT 142 10^3/uL (134-434); RBC 2.82 M/mm3 (3.60-5.2); RDW 19.5 % (11.6-15.6); WHITE BLOOD COUNT 7.6 K/mm3 (4.0-10.0)
[2023-01-26] MEDS: PIPERACILLIN/TAZOB 2.25 GM 2.25 GM in DEXTROSE 5%-WATER - 50 ML IVPB SCH ×4 (09:06→22:03)
[2023-01-26] MEDS: PANTOPRAZOLE SODIUM 40 MG VIAL IVPUSH SCH ×2 (09:07→22:23)
[2023-01-26] MEDS: ASPIRIN 81 MG CHEWABLE TABLETS PO SCH (09:08)
[2023-01-26] MEDS: DULoxetine HCL 30 MG CAPSULE.DR PO SCH (09:08)
[2023-01-26] MEDS: FOLIC ACID 1 MG TABLET (FP) PO SCH (09:08)
[2023-01-26] MEDS: PRAMIPEXOLE DIHYDROCHLORIDE 0.5 MG TABLET PO SCH (09:08)
[2023-01-26] MEDS: ASCORBIC ACID 500 MG TABLET (FP) PO SCH (09:08)
[2023-01-26] MEDS: FUROSEMIDE 20 MG TABLET (FP) PO SCH (09:08)
[2023-01-26] MEDS: LIDOCAINE 5% TOPICAL PATCH TP SCH (09:16)
[2023-01-26 09:29] LABS: POTASSIUM 3.4 mmol/L (3.5-5.1)
[2023-01-26 09:34] LABS: ALBUMIN 2.9 g/dl (3.4-5.0); BLOOD UREA NITROGEN 34.2 mg/dL (7-18)
[2023-01-26 09:35] LABS: CALCIUM 8.2 mg/dL (8.5-10.1)
[2023-01-26 09:36] LABS: CREATININE 1.1 mg/dL (0.55-1.3)
[2023-01-26 09:37] LABS: TOT PROT 5.4 g/dl (6.4-8.2)
[2023-01-26 09:38] LABS: BILIRUBIN,TOTAL 0.8 mg/dL (0.2-1)
[2023-01-26] MEDS ORDERED: POTASSIUM CHLORIDE ORAL LIQUID 20 MEQ/15 ML PO ONE (12:49)
[2023-01-26] MEDS ORDERED: IRON SUCROSE INJECTION 200 MG in SODIUM CHLORIDE 100 ML IVPB ONE (17:45)
[2023-01-26 20:51] VITALS: BMI 27.1
[2023-01-26] MEDS: ATORVASTATIN CA 40 MG TABLET (FP) PO SCH (22:22)
[2023-01-26] MEDS: EZETIMIBE 10 MG TABLET (FP) PO SCH (22:22)
[2023-01-27] MEDS: PIPERACILLIN/TAZOB 2.25 GM 2.25 GM in DEXTROSE 5%-WATER - 50 ML IVPB SCH ×5 (03:29→21:28)
[2023-01-27] MEDS: LIDOCAINE PATCH REMOVAL MC SCH ×2 (03:31→21:29)
[2023-01-27] MEDS: PRAMIPEXOLE DIHYDROCHLORIDE 0.5 MG TABLET PO SCH ×3 (03:34→21:30)
[2023-01-27 08:45] LABS: POTASSIUM 3.6 mmol/L (3.5-5.1)
[2023-01-27 08:48] LABS: CALCIUM 8.3 mg/dL (8.5-10.1)
[2023-01-27 08:49] LABS: ALBUMIN 2.8 g/dl (3.4-5.0); BLOOD UREA NITROGEN 31.9 mg/dL (7-18); MAGNESIUM 1.7 mg/dL (1.8-2.4)
[2023-01-27 08:52] LABS: CREATININE 1.1 mg/dL (0.55-1.3)
[2023-01-27 08:53] LABS: BILIRUBIN,TOTAL 0.6 mg/dL (0.2-1)
[2023-01-27 08:54] LABS: TOT PROT 5.2 g/dl (6.4-8.2)
[2023-01-27] MEDS: FOLIC ACID 1 MG TABLET (FP) PO SCH (09:49)
[2023-01-27] MEDS: ASCORBIC ACID 500 MG TABLET (FP) PO SCH (09:49)
[2023-01-27] MEDS: ASPIRIN 81 MG CHEWABLE TABLETS PO SCH (09:49)
[2023-01-27] MEDS: DULoxetine HCL 30 MG CAPSULE.DR PO SCH (09:50)
[2023-01-27] MEDS: FUROSEMIDE 20 MG TABLET (FP) PO SCH (09:50)
[2023-01-27] MEDS: LIDOCAINE 5% TOPICAL PATCH TP SCH (09:51)
[2023-01-27] MEDS: PANTOPRAZOLE SODIUM 40 MG VIAL IVPUSH SCH ×2 (10:00→21:30)
[2023-01-27] MEDS ORDERED: MAGNESIUM SULF 50% (8.12 MEQ/2 ML-1 GM VIAL) IVPB ONE (10:00)
[2023-01-27] MEDS ORDERED: MAGNESIUM OXIDE 400 MG TABLET (FP) PO ONE (14:15)
[2023-01-27] MEDS: ATORVASTATIN CA 40 MG TABLET (FP) PO SCH (21:29)
[2023-01-27] MEDS: QUEtiapine FUMARATE 25 MG TABLET PO SCH (21:30)
[2023-01-27] MEDS: EZETIMIBE 10 MG TABLET (FP) PO SCH (21:33)
[2023-01-27] MEDS ORDERED: QUEtiapine FUMARATE 25 MG TABLET PO SCH (22:00)
[2023-01-28] MEDS: PIPERACILLIN/TAZOB 2.25 GM 2.25 GM in DEXTROSE 5%-WATER - 50 ML IVPB SCH ×4 (02:25→21:20)
[2023-01-28] MEDS: FOLIC ACID 1 MG TABLET (FP) PO SCH (09:49)
[2023-01-28] MEDS: PANTOPRAZOLE SODIUM 40 MG VIAL IVPUSH SCH ×2 (09:50→22:00)
[2023-01-28] MEDS: ASCORBIC ACID 500 MG TABLET (FP) PO SCH (09:50)
[2023-01-28] MEDS: PRAMIPEXOLE DIHYDROCHLORIDE 0.5 MG TABLET PO SCH ×2 (09:50→21:22)
[2023-01-28] MEDS: ASPIRIN 81 MG CHEWABLE TABLETS PO SCH (09:50)
[2023-01-28] MEDS: FUROSEMIDE 20 MG TABLET (FP) PO SCH (09:50)
[2023-01-28] MEDS: LIDOCAINE 5% TOPICAL PATCH TP SCH (09:51)
[2023-01-28] MEDS: QUEtiapine FUMARATE 25 MG TABLET PO SCH (21:21)
[2023-01-28] MEDS: ATORVASTATIN CA 40 MG TABLET (FP) PO SCH (21:21)
[2023-01-28] MEDS: EZETIMIBE 10 MG TABLET (FP) PO SCH (21:21)
[2023-01-28] MEDS: LIDOCAINE PATCH REMOVAL MC SCH (22:00)
[2023-01-29] MEDS: PIPERACILLIN/TAZOB 2.25 GM 2.25 GM in DEXTROSE 5%-WATER - 50 ML IVPB SCH ×4 (02:26→21:10)
[2023-01-29] MEDS ORDERED: SODIUM PHOSPHATE/NA BIPHOS 133 ML ENEMA RC ONE ×2 (09:15→14:00)
[2023-01-29 09:44] LABS: HEMATOCRIT 25.1 % (32.4-45.2); HEMOGLOBIN 7.9 GM/dL (10.7-15.3); MCHC 31.6 g/dl (32.0-36.0); MEAN CELL VOLUME 85.3 fl (80-96); MEAN PLT VOLUME 10.1 fl (7.5-11.1); PLATELET COUNT 188 10^3/uL (134-434); RBC 2.95 M/mm3 (3.60-5.2); WHITE BLOOD COUNT 8.5 K/mm3 (4.0-10.0)
[2023-01-29 09:52] LABS: POTASSIUM 3.5 mmol/L (3.5-5.1)
[2023-01-29 09:54] LABS: CALCIUM 8.3 mg/dL (8.5-10.1)
[2023-01-29 09:55] LABS: ALBUMIN 2.8 g/dl (3.4-5.0); BLOOD UREA NITROGEN 31.3 mg/dL (7-18); MAGNESIUM 1.8 mg/dL (1.8-2.4)
[2023-01-29 10:00] LABS: BILIRUBIN,TOTAL 0.6 mg/dL (0.2-1); TOT PROT 5.4 g/dl (6.4-8.2)
[2023-01-29] MEDS: PANTOPRAZOLE SODIUM 40 MG VIAL IVPUSH SCH ×2 (10:13→21:11)
[2023-01-29] MEDS: LIDOCAINE 5% TOPICAL PATCH TP SCH (10:13)
[2023-01-29] MEDS: POLYETHYLENE GLYCOL (HEALTHYLAX) 3350 17 GM PACKET PO SCH ×2 (10:14→21:09)
[2023-01-29] MEDS: FOLIC ACID 1 MG TABLET (FP) PO SCH (10:14)
[2023-01-29] MEDS: FUROSEMIDE 20 MG TABLET (FP) PO SCH (10:14)
[2023-01-29] MEDS: ASCORBIC ACID 500 MG TABLET (FP) PO SCH (10:15)
[2023-01-29] MEDS: ASPIRIN 81 MG CHEWABLE TABLETS PO SCH (10:15)
[2023-01-29] MEDS: PRAMIPEXOLE DIHYDROCHLORIDE 0.5 MG TABLET PO SCH ×2 (11:34→21:11)
[2023-01-29] MEDS: EZETIMIBE 10 MG TABLET (FP) PO SCH (21:11)
[2023-01-29] MEDS: LIDOCAINE PATCH REMOVAL MC SCH (21:12)
[2023-01-29] MEDS: QUEtiapine FUMARATE 25 MG TABLET PO SCH (21:12)
[2023-01-29] MEDS: ATORVASTATIN CA 40 MG TABLET (FP) PO SCH (21:12)
[2023-01-30] MEDS: PIPERACILLIN/TAZOB 2.25 GM 2.25 GM in DEXTROSE 5%-WATER - 50 ML IVPB SCH ×4 (02:00→21:07)
[2023-01-30] MEDS ORDERED: PROPOFOL 20 ML ONE (08:35)
[2023-01-30] MEDS ORDERED: ceFAZolin SODIUM 1 GM VIAL ONE (08:39)
[2023-01-30] MEDS ORDERED: ceFAZolin SODIUM 1 GM VIAL IVPB ONE (08:46)
[2023-01-30] MEDS ORDERED: IOHEXOL 300 MG/ML INFUS..BTL IV ONE ×2 (08:55)
[2023-01-30] MEDS ORDERED: ONDANSETRON 4 MG/2 ML VIAL ONE (08:58)
[2023-01-30] MEDS ORDERED: METHYLENE BLUE 50 MG/10 ML AMPUL ONE (09:00)
[2023-01-30] MEDS: ASPIRIN 81 MG CHEWABLE TABLETS PO SCH (09:25)
[2023-01-30] MEDS: PRAMIPEXOLE DIHYDROCHLORIDE 0.5 MG TABLET PO SCH ×2 (09:26→21:08)
[2023-01-30] MEDS: POLYETHYLENE GLYCOL (HEALTHYLAX) 3350 17 GM PACKET PO SCH ×2 (09:26→21:07)
[2023-01-30] MEDS: FUROSEMIDE 20 MG TABLET (FP) PO SCH (09:26)
[2023-01-30] MEDS: PANTOPRAZOLE SODIUM 40 MG VIAL IVPUSH SCH ×2 (09:26→21:08)
[2023-01-30] MEDS: FOLIC ACID 1 MG TABLET (FP) PO SCH (09:26)
[2023-01-30] MEDS: ASCORBIC ACID 500 MG TABLET (FP) PO SCH (09:26)
[2023-01-30] MEDS: LIDOCAINE 5% TOPICAL PATCH TP SCH (09:26)
[2023-01-30] MEDS ORDERED: ONDANSETRON 4 MG/2 ML VIAL IVPUSH PRN ×2 (09:41→11:21)
[2023-01-30] MEDS ORDERED: FUROSEMIDE 40 MG TABLET (FP) PO ONE (12:00)
[2023-01-30] MEDS ORDERED: METOPROLOL SUCCINATE 50 MG, METOPROLOL SUCCINATE 25 MG PO ONE (12:00)
[2023-01-30] MEDS ORDERED: IRON SUCROSE INJECTION 200 MG in SODIUM CHLORIDE 90 ML IVPB ONE (21:00)
[2023-01-30] MEDS: ATORVASTATIN CA 40 MG TABLET (FP) PO SCH (21:08)
[2023-01-30] MEDS: metoPROLOL SUCCINATE 25 MG TAB.SR.24H (FP) PO SCH (21:08)
[2023-01-30] MEDS: EZETIMIBE 10 MG TABLET (FP) PO SCH (21:08)
[2023-01-30] MEDS: LIDOCAINE PATCH REMOVAL MC SCH (21:09)
[2023-01-30] MEDS: QUEtiapine FUMARATE 25 MG TABLET PO SCH (21:09)
[2023-01-30] MEDS ORDERED: LIDOCAINE PATCH REMOVAL MC SCH (22:00)
[2023-01-31] MEDS: PIPERACILLIN/TAZOB 2.25 GM 2.25 GM in DEXTROSE 5%-WATER - 50 ML IVPB SCH ×4 (02:00→21:32)
[2023-01-31] MEDS: metoPROLOL SUCCINATE 25 MG TAB.SR.24H (FP) PO SCH ×2 (09:56→21:33)
[2023-01-31] MEDS: PANTOPRAZOLE SODIUM 40 MG VIAL IVPUSH SCH ×2 (09:56→21:31)
[2023-01-31] MEDS: ASPIRIN 81 MG CHEWABLE TABLETS PO SCH (09:57)
[2023-01-31] MEDS: ASCORBIC ACID 500 MG TABLET (FP) PO SCH (09:57)
[2023-01-31] MEDS: POLYETHYLENE GLYCOL (HEALTHYLAX) 3350 17 GM PACKET PO SCH ×3 (09:58→21:34)
[2023-01-31] MEDS: LIDOCAINE 5% TOPICAL PATCH TP SCH (10:00)
[2023-01-31] MEDS: FOLIC ACID 1 MG TABLET (FP) PO SCH (10:00)
[2023-01-31] MEDS ORDERED: FUROSEMIDE 20 MG TABLET (FP) PO SCH (10:00)
[2023-01-31 11:13] LABS: HEMATOCRIT 26.1 % (32.4-45.2); HEMOGLOBIN 8.2 GM/dL (10.7-15.3); MCH 27.1 pg (25.7-33.7); MCHC 31.3 g/dl (32.0-36.0); MEAN CELL VOLUME 86.7 fl (80-96); PLATELET COUNT 231 10^3/uL (134-434); RBC 3.01 M/mm3 (3.60-5.2); RDW 19.6 % (11.6-15.6); WHITE BLOOD COUNT 10.6 K/mm3 (4.0-10.0)
[2023-01-31 11:43] LABS: POTASSIUM 3.3 mmol/L (3.5-5.1)
[2023-01-31 11:45] LABS: CALCIUM 8.4 mg/dL (8.5-10.1)
[2023-01-31 11:46] LABS: ALBUMIN 2.7 g/dl (3.4-5.0); BLOOD UREA NITROGEN 42.3 mg/dL (7-18); MAGNESIUM 1.9 mg/dL (1.8-2.4)
[2023-01-31 11:49] LABS: CREATININE 2.1 mg/dL (0.55-1.3)
[2023-01-31 11:50] LABS: BILIRUBIN,TOTAL 0.6 mg/dL (0.2-1); TOT PROT 5.3 g/dl (6.4-8.2)
[2023-01-31] MEDS: PRAMIPEXOLE DIHYDROCHLORIDE 0.5 MG TABLET PO SCH ×2 (12:32→21:32)
[2023-01-31] MEDS ORDERED: POTASSIUM CHLORIDE ORAL LIQUID 20 MEQ/15 ML PO ONE (16:03)
[2023-01-31] MEDS ORDERED: SODIUM CHLORIDE 0.45% 1,000 ML IV SCH (16:15)
[2023-01-31] MEDS: LIDOCAINE PATCH REMOVAL MC SCH (21:31)
[2023-01-31] MEDS: ATORVASTATIN CA 40 MG TABLET (FP) PO SCH (21:32)
[2023-01-31] MEDS: QUEtiapine FUMARATE 25 MG TABLET PO SCH (21:32)
[2023-01-31] MEDS: EZETIMIBE 10 MG TABLET (FP) PO SCH (21:32)
[2023-02-01] MEDS: PIPERACILLIN/TAZOB 2.25 GM 2.25 GM in DEXTROSE 5%-WATER - 50 ML IVPB SCH ×4 (02:14→21:54)
[2023-02-01] MEDS: LIDOCAINE 5% TOPICAL PATCH TP SCH (09:06)
[2023-02-01] MEDS: metoPROLOL SUCCINATE 25 MG TAB.SR.24H (FP) PO SCH ×2 (09:06→21:58)
[2023-02-01] MEDS: POLYETHYLENE GLYCOL (HEALTHYLAX) 3350 17 GM PACKET PO SCH ×2 (09:06→21:55)
[2023-02-01] MEDS: ASCORBIC ACID 500 MG TABLET (FP) PO SCH (09:06)
[2023-02-01] MEDS: PRAMIPEXOLE DIHYDROCHLORIDE 0.5 MG TABLET PO SCH ×2 (09:06→21:56)
[2023-02-01] MEDS: ASPIRIN 81 MG CHEWABLE TABLETS PO SCH (09:06)
[2023-02-01] MEDS: FOLIC ACID 1 MG TABLET (FP) PO SCH (09:06)
[2023-02-01] MEDS: PANTOPRAZOLE SODIUM 40 MG VIAL IVPUSH SCH ×2 (09:07→22:02)
[2023-02-01 11:24] LABS: BASO % 0.9 % (0-2.0); EOS % 4.4 % (0-4.5); HEMATOCRIT 22.7 % (32.4-45.2); HEMOGLOBIN 7.2 GM/dL (10.7-15.3); LYMPH % 27.8 % (8-40); MCHC 31.8 g/dl (32.0-36.0); MEAN CELL VOLUME 84.7 fl (80-96); MEAN PLT VOLUME 9.4 fl (7.5-11.1); MONO % 9.5 % (3.8-10.2); NEUT % 57.4 % (42.8-82.8); PLATELET COUNT 218 10^3/uL (134-434); RBC 2.68 M/mm3 (3.60-5.2); RDW 19.4 % (11.6-15.6); WHITE BLOOD COUNT 8.8 K/mm3 (4.0-10.0)
[2023-02-01 11:44] LABS: POTASSIUM 3.5 mmol/L (3.5-5.1)
[2023-02-01 12:23] LABS: ALBUMIN 2.7 g/dl (3.4-5.0); CALCIUM 8.3 mg/dL (8.5-10.1)
[2023-02-01 12:26] LABS: CREATININE 2.1 mg/dL (0.55-1.3)
[2023-02-01 12:27] LABS: BILIRUBIN,TOTAL 1.4 mg/dL (0.2-1)
[2023-02-01] MEDS ORDERED: SODIUM CHLORIDE 0.45% 1,000 ML IV SCH (16:30)
[2023-02-01] MEDS: ATORVASTATIN CA 40 MG TABLET (FP) PO SCH (21:56)
[2023-02-01] MEDS: QUEtiapine FUMARATE 25 MG TABLET PO SCH (21:58)
[2023-02-01] MEDS: EZETIMIBE 10 MG TABLET (FP) PO SCH (21:59)
[2023-02-01] MEDS: LIDOCAINE PATCH REMOVAL MC SCH (22:03)
[2023-02-02] MEDS: PIPERACILLIN/TAZOB 2.25 GM 2.25 GM in DEXTROSE 5%-WATER - 50 ML IVPB SCH ×4 (04:00→21:13)
[2023-02-02] MEDS: ASPIRIN 81 MG CHEWABLE TABLETS PO SCH (09:17)
[2023-02-02] MEDS: PRAMIPEXOLE DIHYDROCHLORIDE 0.5 MG TABLET PO SCH ×2 (09:17→21:14)
[2023-02-02] MEDS: ASCORBIC ACID 500 MG TABLET (FP) PO SCH (09:17)
[2023-02-02] MEDS: metoPROLOL SUCCINATE 25 MG TAB.SR.24H (FP) PO SCH ×2 (09:17→21:14)
[2023-02-02] MEDS: FOLIC ACID 1 MG TABLET (FP) PO SCH (09:17)
[2023-02-02] MEDS: LIDOCAINE 5% TOPICAL PATCH TP SCH (09:18)
[2023-02-02] MEDS: POLYETHYLENE GLYCOL (HEALTHYLAX) 3350 17 GM PACKET PO SCH ×4 (09:18→21:15)
[2023-02-02] MEDS: PANTOPRAZOLE SODIUM 40 MG VIAL IVPUSH SCH ×2 (09:18→21:14)
[2023-02-02] MEDS: LIDOCAINE PATCH REMOVAL MC SCH (21:10)
[2023-02-02] MEDS: EZETIMIBE 10 MG TABLET (FP) PO SCH (21:13)
[2023-02-02] MEDS: ATORVASTATIN CA 40 MG TABLET (FP) PO SCH (21:14)
[2023-02-02] MEDS: QUEtiapine FUMARATE 25 MG TABLET PO SCH (21:14)
[2023-02-03] MEDS: PIPERACILLIN/TAZOB 2.25 GM 2.25 GM in DEXTROSE 5%-WATER - 50 ML IVPB SCH ×4 (03:00→21:10)
[2023-02-03] MEDS: POLYETHYLENE GLYCOL (HEALTHYLAX) 3350 17 GM PACKET PO SCH ×3 (09:28→21:13)
[2023-02-03] MEDS: PANTOPRAZOLE SODIUM 40 MG VIAL IVPUSH SCH ×2 (09:28→21:12)
[2023-02-03] MEDS: metoPROLOL SUCCINATE 25 MG TAB.SR.24H (FP) PO SCH ×2 (09:28→21:11)
[2023-02-03] MEDS: ASPIRIN 81 MG CHEWABLE TABLETS PO SCH (09:28)
[2023-02-03] MEDS: FOLIC ACID 1 MG TABLET (FP) PO SCH (09:28)
[2023-02-03] MEDS: ASCORBIC ACID 500 MG TABLET (FP) PO SCH (09:28)
[2023-02-03] MEDS: PRAMIPEXOLE DIHYDROCHLORIDE 0.5 MG TABLET PO SCH ×2 (09:28→21:12)
[2023-02-03] MEDS: LIDOCAINE 5% TOPICAL PATCH TP SCH (09:29)
[2023-02-03 12:32] LABS: BASO % 0.9 % (0-2.0); EOS % 2.6 % (0-4.5); HEMATOCRIT 28.2 % (32.4-45.2); HEMOGLOBIN 8.9 GM/dL (10.7-15.3); LYMPH % 21.7 % (8-40); MCH 27.4 pg (25.7-33.7); MCHC 31.6 g/dl (32.0-36.0); MEAN CELL VOLUME 86.5 fl (80-96); MEAN PLT VOLUME 9.7 fl (7.5-11.1); MONO % 8.9 % (3.8-10.2); NEUT % 65.9 % (42.8-82.8); PLATELET COUNT 240 10^3/uL (134-434); RBC 3.26 M/mm3 (3.60-5.2); RDW 18.5 % (11.6-15.6)
[2023-02-03 12:50] LABS: POTASSIUM 3.7 mmol/L (3.5-5.1)
[2023-02-03 12:52] LABS: ALBUMIN 2.9 g/dl (3.4-5.0); BLOOD UREA NITROGEN 34.2 mg/dL (7-18); CALCIUM 8.5 mg/dL (8.5-10.1)
[2023-02-03 12:56] LABS: CREATININE 1.5 mg/dL (0.55-1.3)
[2023-02-03 12:57] LABS: TOT PROT 5.9 g/dl (6.4-8.2)
[2023-02-03] MEDS: QUEtiapine FUMARATE 25 MG TABLET PO SCH (21:10)
[2023-02-03] MEDS: ATORVASTATIN CA 40 MG TABLET (FP) PO SCH (21:11)
[2023-02-03] MEDS: EZETIMIBE 10 MG TABLET (FP) PO SCH (21:12)
[2023-02-03] MEDS: LIDOCAINE PATCH REMOVAL MC SCH (21:12)
[2023-02-04] MEDS: PIPERACILLIN/TAZOB 2.25 GM 2.25 GM in DEXTROSE 5%-WATER - 50 ML IVPB SCH ×3 (02:00→15:50)
[2023-02-04] MEDS ORDERED: IRON SUCROSE INJECTION 200 MG in SODIUM CHLORIDE 90 ML IVPB ONE (09:00)
[2023-02-04] MEDS: LIDOCAINE 5% TOPICAL PATCH TP SCH (10:13)
[2023-02-04] MEDS: PANTOPRAZOLE SODIUM 40 MG VIAL IVPUSH SCH (10:14)
[2023-02-04] MEDS: ASCORBIC ACID 500 MG TABLET (FP) PO SCH (10:21)
[2023-02-04] MEDS: metoPROLOL SUCCINATE 25 MG TAB.SR.24H (FP) PO SCH (10:21)
[2023-02-04] MEDS: ASPIRIN 81 MG CHEWABLE TABLETS PO SCH (10:24)
[2023-02-04] MEDS: FOLIC ACID 1 MG TABLET (FP) PO SCH (10:24)
[2023-02-04] MEDS: PRAMIPEXOLE DIHYDROCHLORIDE 0.5 MG TABLET PO SCH (10:24)
[2023-02-04] MEDS: POLYETHYLENE GLYCOL (HEALTHYLAX) 3350 17 GM PACKET PO SCH (10:24)
[2023-02-04 10:37] LABS: BASO % 0.8 % (0-2.0); EOS % 2.7 % (0-4.5); HEMATOCRIT 26.9 % (32.4-45.2); HEMOGLOBIN 8.6 GM/dL (10.7-15.3); LYMPH % 16.4 % (8-40); MCH 27.6 pg (25.7-33.7); MCHC 32.1 g/dl (32.0-36.0); MEAN CELL VOLUME 86.1 fl (80-96); MEAN PLT VOLUME 9.6 fl (7.5-11.1); NEUT % 71.1 % (42.8-82.8); PLATELET COUNT 194 10^3/uL (134-434); RBC 3.13 M/mm3 (3.60-5.2); RDW 18.2 % (11.6-15.6); WHITE BLOOD COUNT 11.9 K/mm3 (4.0-10.0)
[2023-02-04 11:06] LABS: POTASSIUM 3.5 mmol/L (3.5-5.1)
[2023-02-04 11:11] LABS: ALBUMIN 2.8 g/dl (3.4-5.0)
[2023-02-04 11:12] LABS: BLOOD UREA NITROGEN 32.2 mg/dL (7-18); CALCIUM 8.3 mg/dL (8.5-10.1)
[2023-02-04 11:14] LABS: CREATININE 1.4 mg/dL (0.55-1.3)
[2023-02-04 11:15] LABS: TOT PROT 5.4 g/dl (6.4-8.2)
[2023-02-04 11:16] LABS: BILIRUBIN,TOTAL 1.8 mg/dL (0.2-1)
[2023-02-04 13:57] VITALS: RESP 18
[2023-02-04 14:57] VITALS: BP 114/51; TEMP 98.9
[2023-02-04 15:33] VITALS: PULSE 80
[2023-02-04] MEDS ORDERED: SODIUM CHLORIDE 0.45% 1,000 ML IV SCH (16:30)
== END 2023-02-04 19:00 | disposition home health service (06) | DRG 854 ==
LOC: JER 11:40 → JERBED 21:11 → J6S 22:25
PROVIDERS: ADMIT Internal Medicine; ATTEND Family Medicine
PROC: BT14ZZZ Fluoroscopy of Kidneys, Ureters and Bladder (ICD-10-PCS; 2023-01-30)
PROC: 0T9B80Z Drainage of Bladder with Drainage Device, Via Natural or Artificial Opening Endoscopic (ICD-10-PCS; 2023-01-30)
PROC: 0TJB8ZZ Inspection of Bladder, Via Natural or Artificial Opening Endoscopic (ICD-10-PCS; 2023-01-30)
PROC: 0T788DZ Dilation of Bilateral Ureters with Intraluminal Device, Via Natural or Artificial Opening Endoscopic (ICD-10-PCS; principal; 2023-01-30 08:30)
PROC: 30233N1 Transfusion of Nonautologous Red Blood Cells into Peripheral Vein, Percutaneous Approach (ICD-10-PCS; 2023-02-02)
DX: A41.89 Other specified sepsis (principal); I13.0 Hypertensive heart and chronic kidney disease with heart failure and stage 1 through stage 4 chronic kidney disease, or unspecified chronic kidney disease; I48.19 Other persistent atrial fibrillation; N17.9 Acute kidney failure, unspecified; N13.6 Pyonephrosis; E78.00 Pure hypercholesterolemia, unspecified; I25.10 Atherosclerotic heart disease of native coronary artery without angina pectoris; N73.9 Female pelvic inflammatory disease, unspecified; N31.9 Neuromuscular dysfunction of bladder, unspecified; B96.5 Pseudomonas (aeruginosa) (mallei) (pseudomallei) as the cause of diseases classified elsewhere; D64.9 Anemia, unspecified; D25.9 Leiomyoma of uterus, unspecified; N83.292 Other ovarian cyst, left side; N83.291 Other ovarian cyst, right side; I48.91 Unspecified atrial fibrillation; K21.9 Gastro-esophageal reflux disease without esophagitis; E11.22 Type 2 diabetes mellitus with diabetic chronic kidney disease; N18.9 Chronic kidney disease, unspecified; K59.00 Constipation, unspecified; Z96.651 Presence of right artificial knee joint; Z95.5 Presence of coronary angioplasty implant and graft; I50.9 Heart failure, unspecified
CPT/HCPCS: 0241U-QW; 36415; 36430; 71045-TC-FY; 74176-TC; 74177-TC; 76000-TC-FY; 76775-TC; 80048; 80053; 81003; 82272; 82550; 82728; 82784; 82962; 83540; 83550; 83605; 83690; 83735; 84155; 84165; 84466; 84484; 85025; 85027; 85045; 85610; 85730; 86850; 86900; 86901; 86922; 87040; 87086; 87186; 93005; 93010; 94760; 94761; 97116-GP; 97161-GP; 99285-25; C2617; J1756; P9058; Q9967; Q9968

== ENCOUNTER 2023-02-25 16:26 | Inpatient (IN) | payer OTHER ==
[2023-02-25] MEDS ORDERED: ACETAMINOPHEN 1000 MG/100 ML BAG IVPB ONE ×2 (17:09→17:32)
[2023-02-25 17:41] LABS: VENOUS BASE EXCESS 4.7 mmol/L (-2-2); VENOUS O2 SATURATION 17.5 % (70-80); VENOUS PCO2 48.8 mmHg (38-52); VENOUS PH 7.411 (7.310-7.410)
[2023-02-25 17:45] LABS: BASO % 0.7 % (0-2.0); HEMATOCRIT 31.1 % (32.4-45.2); HEMOGLOBIN 10.1 GM/dL (10.7-15.3); LYMPH % 6.9 % (8-40); MCH 27.7 pg (25.7-33.7); MCHC 32.4 g/dl (32.0-36.0); MEAN CELL VOLUME 85.4 fl (80-96); MEAN PLT VOLUME 9.7 fl (7.5-11.1); MONO % 5.9 % (3.8-10.2); NEUT % 86.5 % (42.8-82.8); PLATELET COUNT 236 10^3/uL (134-434); RBC 3.64 M/mm3 (3.60-5.2); RDW 18.4 % (11.6-15.6); WHITE BLOOD COUNT 27.4 K/mm3 (4.0-10.0)
[2023-02-25 17:48] LABS: INR 1.25 (0.83-1.09); PROTHROMBIN TIME (PATIENT) 14.5 SEC (9.7-13.0)
[2023-02-25] MEDS ORDERED: ACETAMINOPHEN INJECTION 100 ML IVPB ONE ×2 (17:49→17:53)
[2023-02-25 17:50] LABS: ACTIVATED PTT 33.8 SECONDS (25.2-36.5)
[2023-02-25 17:59] LABS: CHLORIDE 95 mmol/L (98-107); SODIUM 134 mmol/L (136-145)
[2023-02-25 18:01] LABS: ANION GAP 7 MMOL/L (8-16); BLOOD UREA NITROGEN 33.7 mg/dL (7-18); CALCIUM 8.4 mg/dL (8.5-10.1); CO2 31 mmol/L (21-32); GLUCOSE,RANDOM 156 mg/dL (74-106)
[2023-02-25 18:05] LABS: CREATININE 1.4 mg/dL (0.55-1.3); SGOT/AST 27 U/L (15-37); SGPT/ALT 13 U/L (13-61)
[2023-02-25 18:06] LABS: TOT PROT 6.6 g/dl (6.4-8.2)
[2023-02-25 18:08] LABS: ALK PHOS 85 U/L (45-117)
[2023-02-25 18:18] LABS: ANISOCYTOSIS 1+; MACROCYTOSIS 0
[2023-02-25] MEDS ORDERED: VANCOMYCIN 1,000 MG in DEXTROSE 5%-WATER - 250 ML IVPB ONE (18:35)
[2023-02-25] MEDS ORDERED: PIPERACILLIN/TAZOB 4.5 GM 4.5 GM in DEXTROSE 5%-WATER 100 ML IVPB ONE (18:36)
[2023-02-25] MEDS ORDERED: PIPERACILLIN/TAZOB 4.5 GM 4.5 GM/100 ML BAG IVPB ONE (18:42)
[2023-02-25] MEDS ORDERED: VANCOMYCIN 1 GRAM (PRE-DOCKED) 1,000 MG/250 ML BAG IVPB ONE (19:30)
[2023-02-25 20:06] LABS: EPI CELLS 3 /uL (0-25.1); HYALINE CASTS 0 /uL (0-3.1); URINE APPEARANCE CLOUDY; URINE BACTERIA 1841 /uL (0-1359); URINE BILIRUBIN NEGATIVE (NEGATIVE); URINE COLOR YELLOW; URINE GLUCOSE (UA) NEGATIVE (NEGATIVE); URINE KETONE NEGATIVE (NEGATIVE); URINE LEUK ESTERASE 3+ (NEGATIVE); URINE NITRITE POSITIVE (NEGATIVE); URINE PROTEIN 2+ (NEGATIVE); URINE RBC 2218 /uL (0-23.9); URINE UROBILINOGEN 0.2 mg/dL (0.2-1.0); URINE WBC 1979 /uL (0-25.8)
[2023-02-26] MEDS ORDERED: ACETAMINOPHEN 1000 MG/100 ML BAG IVPB ONE (00:45)
[2023-02-26] MEDS ORDERED: ACETAMINOPHEN INJECTION 100 ML IVPB ONE (01:01)
[2023-02-26] MEDS ORDERED: ACETAMINOPHEN 325 MG TABLET (FP) PO PRN (04:44)
[2023-02-26] MEDS ORDERED: PIPERACILLIN/TAZOB 2.25 GM 2.25 GM in DEXTROSE 5%-WATER - 50 ML IVPB SCH (05:30)
[2023-02-26] MEDS ORDERED: PIPERACILLIN/TAZOB 2.25 GM 2.25 GM/50 ML BAG IVPB ONE ×2 (05:41→19:30)
[2023-02-26] MEDS: PIPERACILLIN/TAZOB 2.25 GM 2.25 GM in DEXTROSE 5%-WATER - 50 ML IVPB SCH ×3 (05:54→20:02)
[2023-02-26] MEDS ORDERED: CASPOFUNGIN ACETATE 50 MG in SODIUM CHLORIDE 250 ML IVPB SCH ×2 (06:00→10:00)
[2023-02-26] MEDS ORDERED: PANTOPRAZOLE 40 MG TABLET PO ONE (06:47)
[2023-02-26] MEDS: PANTOPRAZOLE 40 MG TABLET PO SCH (06:48)
[2023-02-26] MEDS: INSULIN SLIDING SCALE (NOVOLOG) 1 VIAL SQ SCH ×4 (09:05→22:28)
[2023-02-26] MEDS ORDERED: FERROUS SO4 325 MG TABLET (FP) ONE (11:06)
[2023-02-26] MEDS ORDERED: DULoxetine HCL 30 MG CAPSULE.DR PO ONE (11:06)
[2023-02-26] MEDS ORDERED: FOLIC ACID 1 MG TABLET (FP) ONE (11:06)
[2023-02-26] MEDS ORDERED: QUEtiapine FUMARATE 25 MG TABLET ONE ×2 (11:06→21:59)
[2023-02-26] MEDS ORDERED: FUROSEMIDE 20 MG TABLET (FP) ONE (11:06)
[2023-02-26] MEDS ORDERED: METOPROLOL TARTRATE 25 MG TABLET (FP) ONE (11:06)
[2023-02-26] MEDS: LIDOCAINE 5% TOPICAL PATCH TP SCH (11:15)
[2023-02-26] MEDS: QUEtiapine FUMARATE 25 MG TABLET PO SCH ×2 (11:15→22:28)
[2023-02-26] MEDS: FUROSEMIDE 40 MG TABLET (FP) PO SCH (11:15)
[2023-02-26] MEDS: FERROUS SO4 325 MG TABLET (FP) PO SCH (11:15)
[2023-02-26] MEDS: METOPROLOL TARTRATE 25 MG TABLET (FP) PO SCH ×2 (11:15→22:27)
[2023-02-26] MEDS: FOLIC ACID 1 MG TABLET (FP) PO SCH (11:15)
[2023-02-26] MEDS: DULoxetine HCL 30 MG CAPSULE.DR PO SCH (11:15)
[2023-02-26] MEDS: PRAMIPEXOLE DIHYDROCHLORIDE 0.5 MG TABLET PO SCH ×2 (12:33→22:28)
[2023-02-26] MEDS ORDERED: PIPERACILLIN/TAZOB 3.375 GM 3.375 GM/50 ML BAG IVPB ONE (12:36)
[2023-02-26 13:48] LABS: HEMATOCRIT 28.4 % (32.4-45.2); HEMOGLOBIN 9.2 GM/dL (10.7-15.3); MCH 27.8 pg (25.7-33.7); MCHC 32.2 g/dl (32.0-36.0); MEAN CELL VOLUME 86.1 fl (80-96); MEAN PLT VOLUME 9.4 fl (7.5-11.1); PLATELET COUNT 192 10^3/uL (134-434); RDW 18.5 % (11.6-15.6); WHITE BLOOD COUNT 20.5 K/mm3 (4.0-10.0)
[2023-02-26 14:11] LABS: ALBUMIN 2.6 g/dl (3.4-5.0); BLOOD UREA NITROGEN 35.7 mg/dL (7-18); CALCIUM 8.5 mg/dL (8.5-10.1)
[2023-02-26 14:14] LABS: CREATININE 1.4 mg/dL (0.55-1.3)
[2023-02-26 14:16] LABS: BILIRUBIN,TOTAL 0.8 mg/dL (0.2-1); TOT PROT 5.9 g/dl (6.4-8.2)
[2023-02-26 14:19] LABS: ANISOCYTOSIS 0; HELMET CELLS 0; HOWELL-JOLLY BODIES 0; MACROCYTOSIS 0; OVALOCYTE 0; ROULEAU 0; SICKELED CELLS 0; TARGET CELLS 0; TEAR DROP CELLS 0; TOXIC GRANULATION 0
[2023-02-26] MEDS ORDERED: ACETAMINOPHEN 325 MG TABLET (FP) ONE ×2 (16:00→21:59)
[2023-02-26] MEDS: ACETAMINOPHEN 325 MG TABLET (FP) PO PRN ×2 (16:15→22:28)
[2023-02-26] MEDS ORDERED: POTASSIUM CHLORIDE ORAL LIQUID 20 MEQ/15 ML PO ONE (16:55)
[2023-02-26] MEDS: CASPOFUNGIN ACETATE 50 MG in SODIUM CHLORIDE 250 ML IVPB SCH (18:56)
[2023-02-26] MEDS ORDERED: POTASSIUM CHLORIDE ORAL LIQUID 20 MEQ/15 ML ONE (19:30)
[2023-02-26] MEDS ORDERED: VANCOMYCIN 1 GRAM (PRE-DOCKED) 1,000 MG/250 ML BAG IVPB ONE (22:00)
[2023-02-26] MEDS: VANCOMYCIN/WATER FOR INJ (PEG) 1,000 MG/200 ML BAG IVPB SCH (22:27)
[2023-02-26] MEDS: EZETIMIBE 10 MG TABLET (FP) PO SCH (22:28)
[2023-02-26] MEDS: LIDOCAINE PATCH REMOVAL MC SCH (23:10)
[2023-02-27] MEDS: PIPERACILLIN/TAZOB 2.25 GM 2.25 GM in DEXTROSE 5%-WATER - 50 ML IVPB SCH ×3 (02:03→18:08)
[2023-02-27] MEDS: INSULIN SLIDING SCALE (NOVOLOG) 1 VIAL SQ SCH ×4 (06:14→21:12)
[2023-02-27] MEDS: PANTOPRAZOLE 40 MG TABLET PO SCH (06:14)
[2023-02-27] MEDS: LIDOCAINE 5% TOPICAL PATCH TP SCH (09:41)
[2023-02-27] MEDS: DULoxetine HCL 30 MG CAPSULE.DR PO SCH (09:42)
[2023-02-27] MEDS: FERROUS SO4 325 MG TABLET (FP) PO SCH (09:42)
[2023-02-27] MEDS: FUROSEMIDE 40 MG TABLET (FP) PO SCH (09:43)
[2023-02-27] MEDS: PRAMIPEXOLE DIHYDROCHLORIDE 0.5 MG TABLET PO SCH ×2 (09:43→21:03)
[2023-02-27] MEDS: QUEtiapine FUMARATE 25 MG TABLET PO SCH ×2 (09:43→21:05)
[2023-02-27] MEDS: FOLIC ACID 1 MG TABLET (FP) PO SCH (09:43)
[2023-02-27] MEDS: METOPROLOL TARTRATE 25 MG TABLET (FP) PO SCH ×2 (09:55→21:04)
[2023-02-27 10:33] LABS: BASO % 0.7 % (0-2.0); EOS % 3.5 % (0-4.5); HEMATOCRIT 23.6 % (32.4-45.2); HEMOGLOBIN 7.7 GM/dL (10.7-15.3); LYMPH % 12.1 % (8-40); MCH 28.3 pg (25.7-33.7); MCHC 32.7 g/dl (32.0-36.0); MEAN CELL VOLUME 86.3 fl (80-96); MEAN PLT VOLUME 9.8 fl (7.5-11.1); MONO % 8.3 % (3.8-10.2); NEUT % 75.4 % (42.8-82.8); PLATELET COUNT 155 10^3/uL (134-434); RBC 2.73 M/mm3 (3.60-5.2); RDW 17.7 % (11.6-15.6); WHITE BLOOD COUNT 10.1 K/mm3 (4.0-10.0)
[2023-02-27 10:51] LABS: CHLORIDE 98 mmol/L (98-107); SODIUM 135 mmol/L (136-145)
[2023-02-27 10:58] LABS: GLUCOSE,RANDOM 130 mg/dL (74-106)
[2023-02-27 10:59] LABS: ALBUMIN 2.2 g/dl (3.4-5.0); BLOOD UREA NITROGEN 43.2 mg/dL (7-18); CO2 29 mmol/L (21-32)
[2023-02-27 11:03] LABS: BILIRUBIN,TOTAL 0.7 mg/dL (0.2-1); CREATININE 1.7 mg/dL (0.55-1.3); SGOT/AST 6 U/L (15-37); SGPT/ALT 8 U/L (13-61)
[2023-02-27 11:05] LABS: ALK PHOS 68 U/L (45-117); TOT PROT 4.9 g/dl (6.4-8.2)
[2023-02-27 11:11] LABS: ANION GAP 9 MMOL/L (8-16); POTASSIUM 2.8 mmol/L (3.5-5.1)
[2023-02-27] MEDS ORDERED: POTASSIUM CHLORIDE ORAL LIQUID 20 MEQ/15 ML PO ONE (11:30)
[2023-02-27] MEDS: KCL 10 MEQ IVPB 10 MEQ/100 ML INFUS.BAG IVPB SCH ×5 (11:56→23:12)
[2023-02-27] MEDS ORDERED: MAGNESIUM SULF 50% (8.12 MEQ/2 ML-1 GM VIAL) IVPB ONE (12:00)
[2023-02-27] MEDS: CASPOFUNGIN ACETATE 50 MG in SODIUM CHLORIDE 250 ML IVPB SCH (18:06)
[2023-02-27] MEDS: EZETIMIBE 10 MG TABLET (FP) PO SCH (21:04)
[2023-02-27] MEDS: VANCOMYCIN/WATER FOR INJ (PEG) 1,000 MG/200 ML BAG IVPB SCH (22:07)
[2023-02-27] MEDS: LIDOCAINE PATCH REMOVAL MC SCH (23:12)
[2023-02-28] MEDS: PIPERACILLIN/TAZOB 2.25 GM 2.25 GM in DEXTROSE 5%-WATER - 50 ML IVPB SCH ×3 (03:02→17:24)
[2023-02-28] MEDS: INSULIN SLIDING SCALE (NOVOLOG) 1 VIAL SQ SCH ×3 (06:02→17:21)
[2023-02-28] MEDS: PANTOPRAZOLE 40 MG TABLET PO SCH (06:02)
[2023-02-28] MEDS: DULoxetine HCL 30 MG CAPSULE.DR PO SCH (09:27)
[2023-02-28] MEDS: QUEtiapine FUMARATE 25 MG TABLET PO SCH ×2 (09:28→21:06)
[2023-02-28] MEDS: METOPROLOL TARTRATE 25 MG TABLET (FP) PO SCH ×2 (09:28→21:06)
[2023-02-28] MEDS: FUROSEMIDE 40 MG TABLET (FP) PO SCH (09:28)
[2023-02-28] MEDS: PRAMIPEXOLE DIHYDROCHLORIDE 0.5 MG TABLET PO SCH ×2 (09:28→21:06)
[2023-02-28] MEDS: FERROUS SO4 325 MG TABLET (FP) PO SCH (09:28)
[2023-02-28] MEDS: FOLIC ACID 1 MG TABLET (FP) PO SCH (09:28)
[2023-02-28] MEDS: LIDOCAINE 5% TOPICAL PATCH TP SCH (09:29)
[2023-02-28 11:48] LABS: HEMATOCRIT 23.5 % (32.4-45.2); HEMOGLOBIN 7.8 GM/dL (10.7-15.3); MCH 28.2 pg (25.7-33.7); MEAN CELL VOLUME 85.3 fl (80-96); MEAN PLT VOLUME 9.8 fl (7.5-11.1); PLATELET COUNT 174 10^3/uL (134-434); RBC 2.76 M/mm3 (3.60-5.2); RDW 17.8 % (11.6-15.6)
[2023-02-28 12:17] LABS: POTASSIUM 3.6 mmol/L (3.5-5.1)
[2023-02-28 12:18] LABS: CALCIUM 8.2 mg/dL (8.5-10.1)
[2023-02-28 12:19] LABS: BLOOD UREA NITROGEN 36.8 mg/dL (7-18); MAGNESIUM 1.7 mg/dL (1.8-2.4)
[2023-02-28 12:22] LABS: CREATININE 1.4 mg/dL (0.55-1.3)
[2023-02-28] MEDS ORDERED: MAGNESIUM SULF 50% (8.12 MEQ/2 ML-1 GM VIAL) IVPB ONE (13:00)
[2023-02-28 15:32] VITALS: RESP 18
[2023-02-28 15:35] VITALS: BMI 24.0
[2023-02-28] MEDS: CASPOFUNGIN ACETATE 50 MG in SODIUM CHLORIDE 250 ML IVPB SCH (16:12)
[2023-02-28] MEDS ORDERED: POTASSIUM CHLORIDE ORAL LIQUID 20 MEQ/15 ML PO ONE (20:00)
[2023-02-28] MEDS ORDERED: MAGNESIUM OXIDE 400 MG TABLET (FP) PO ONE (20:00)
[2023-02-28] MEDS: VANCOMYCIN/WATER FOR INJ (PEG) 1,000 MG/200 ML BAG IVPB SCH (20:14)
[2023-02-28] MEDS: EZETIMIBE 10 MG TABLET (FP) PO SCH (21:06)
[2023-03-01] MEDS: LIDOCAINE PATCH REMOVAL MC SCH (00:42)
[2023-03-01] MEDS: INSULIN SLIDING SCALE (NOVOLOG) 1 VIAL SQ SCH ×4 (00:42→17:08)
[2023-03-01] MEDS: PIPERACILLIN/TAZOB 2.25 GM 2.25 GM in DEXTROSE 5%-WATER - 50 ML IVPB SCH ×3 (02:01→18:10)
[2023-03-01] MEDS: PANTOPRAZOLE 40 MG TABLET PO SCH (06:29)
[2023-03-01] MEDS ORDERED: AMINO ACIDS/PROTEIN HYDROLYS 30 ML LIQUID.PKT PO SCH (08:00)
[2023-03-01] MEDS ORDERED: MULTIVITAMINS (DAILY MVI) TABLET (FP) PO SCH (10:00)
[2023-03-01] MEDS ORDERED: ASCORBIC ACID 250 MG TABLET (FP) PO SCH (10:00)
[2023-03-01] MEDS: METOPROLOL TARTRATE 25 MG TABLET (FP) PO SCH (10:12)
[2023-03-01] MEDS: QUEtiapine FUMARATE 25 MG TABLET PO SCH (10:13)
[2023-03-01] MEDS: FERROUS SO4 325 MG TABLET (FP) PO SCH (10:13)
[2023-03-01] MEDS: FUROSEMIDE 40 MG TABLET (FP) PO SCH (10:13)
[2023-03-01] MEDS: PRAMIPEXOLE DIHYDROCHLORIDE 0.5 MG TABLET PO SCH (10:14)
[2023-03-01] MEDS: FOLIC ACID 1 MG TABLET (FP) PO SCH (10:14)
[2023-03-01] MEDS: DULoxetine HCL 30 MG CAPSULE.DR PO SCH (10:19)
[2023-03-01] MEDS: LIDOCAINE 5% TOPICAL PATCH TP SCH (10:48)
[2023-03-01 12:03] LABS: HEMATOCRIT 25.3 % (32.4-45.2); HEMOGLOBIN 8.1 GM/dL (10.7-15.3); MCH 27.8 pg (25.7-33.7); MCHC 31.9 g/dl (32.0-36.0); MEAN CELL VOLUME 87.2 fl (80-96); MEAN PLT VOLUME 9.6 fl (7.5-11.1); PLATELET COUNT 220 10^3/uL (134-434); RDW 17.4 % (11.6-15.6); WHITE BLOOD COUNT 6.8 K/mm3 (4.0-10.0)
[2023-03-01 12:29] LABS: POTASSIUM 3.6 mmol/L (3.5-5.1)
[2023-03-01 13:32] LABS: CALCIUM 8.7 mg/dL (8.5-10.1)
[2023-03-01 13:33] LABS: ALBUMIN 2.4 g/dl (3.4-5.0); BLOOD UREA NITROGEN 35.2 mg/dL (7-18); MAGNESIUM 1.9 mg/dL (1.8-2.4)
[2023-03-01 13:36] LABS: CREATININE 1.2 mg/dL (0.55-1.3)
[2023-03-01 13:38] LABS: BILIRUBIN,TOTAL 0.5 mg/dL (0.2-1); TOT PROT 5.5 g/dl (6.4-8.2)
[2023-03-01] MEDS ORDERED: POTASSIUM CHLORIDE ORAL LIQUID 20 MEQ/15 ML PO ONE (16:03)
[2023-03-01] MEDS: CASPOFUNGIN ACETATE 50 MG in SODIUM CHLORIDE 250 ML IVPB SCH (16:54)
[2023-03-01 18:28] VITALS: BP 137/72; PULSE 76; TEMP 97.7
== END 2023-03-01 20:20 | disposition short-term general hospital (02) | DRG 872 ==
LOC: JER 16:26 → JERBED 02-26 00:50 → J5S 02-26 23:00
PROVIDERS: ADMIT Internal Medicine; ATTEND Family Medicine
DX: A41.9 Sepsis, unspecified organism (principal); N39.0 Urinary tract infection, site not specified; I50.32 Chronic diastolic (congestive) heart failure; I48.20 Chronic atrial fibrillation, unspecified; N85.8 Other specified noninflammatory disorders of uterus; E78.5 Hyperlipidemia, unspecified; I25.10 Atherosclerotic heart disease of native coronary artery without angina pectoris; Z95.5 Presence of coronary angioplasty implant and graft
CPT/HCPCS: 0241U-QW; 36415; 71045-TC-FY; 71260-TC; 74177-TC; 80048; 80053; 81003; 82550; 82553; 82728; 82803; 82962; 83540; 83550; 83605; 83735; 84484; 85025; 85027; 85610; 85730; 86850; 86900; 86901; 87040; 87070; 87086; 87186; 93005; 93010; 99285-25; J0637; Q9967

== ENCOUNTER 2023-03-21 16:41 | Emergency (ER) | payer OTHER ==
[2023-03-21 17:09] VITALS: BMI 26.1
[2023-03-21 18:05] LABS: EPI CELLS >36 /uL (0-25.1); HYALINE CASTS 1 /uL (0-3.1); URINE APPEARANCE CLEAR; URINE BACTERIA 34 /uL (0-1359); URINE BILIRUBIN NEGATIVE (NEGATIVE); URINE COLOR YELLOW; URINE GLUCOSE (UA) NEGATIVE (NEGATIVE); URINE KETONE NEGATIVE (NEGATIVE); URINE LEUK ESTERASE 3+ (NEGATIVE); URINE NITRITE NEGATIVE (NEGATIVE); URINE PROTEIN 3+ (NEGATIVE); URINE RBC 5189 /uL (0-23.9); URINE UROBILINOGEN 0.2 mg/dL (0.2-1.0); URINE WBC 220 /uL (0-25.8)
[2023-03-21 18:34] VITALS: BP 150/64; PULSE 81; RESP 17; TEMP 97.8
== END 2023-03-21 18:20 | disposition home or self-care (01) ==
LOC: JER 16:41
PROC: 0T9B70Z Drainage of Bladder with Drainage Device, Via Natural or Artificial Opening (ICD-10-PCS; principal; 2023-03-21)
DX: T83.028A Displacement of other urinary catheter, initial encounter (principal); Y83.1 Surgical operation with implant of artificial internal device as the cause of abnormal reaction of the patient, or of later complication, without mention of misadventure at the time of the procedure
CPT/HCPCS: 81003; 87086; 87186; 99283-25

== ENCOUNTER 2023-07-03 04:18 | Day surgery (SDC) | payer OTHER ==
[2023-06-28 11:05] VITALS: BMI 29.2
[2023-07-03] MEDS ORDERED: PROPOFOL 20 ML ONE (12:48)
[2023-07-03] MEDS ORDERED: SUCCINYLCHOLINE CHLORIDE 200 MG/10 ML SYRINGE ONE (12:49)
[2023-07-03] MEDS: ceFAZolin SODIUM 1 GM VIAL IVPB ONE (12:50)
[2023-07-03 13:37] VITALS: BP 170/85; PULSE 69; RESP 16; TEMP 98
== END 2023-07-03 14:20 | disposition home or self-care (01) ==
LOC: JASU-SURG 04:18
PROVIDERS: ATTEND Urology
PROC: BT14YZZ Fluoroscopy of Kidneys, Ureters and Bladder using Other Contrast (ICD-10-PCS; 2023-07-03)
PROC: 0T788DZ Dilation of Bilateral Ureters with Intraluminal Device, Via Natural or Artificial Opening Endoscopic (ICD-10-PCS; principal; 2023-07-03 14:00)
DX: N13.30 Unspecified hydronephrosis (principal)
CPT/HCPCS: 76000-TC-FY; C2617

== ENCOUNTER 2023-10-06 11:26 | Emergency (ER) | payer OTHER ==
[2023-10-06 11:36] VITALS: BP 117/77; PULSE 80; RESP 18; TEMP 97.5; BMI 25.4
[2023-10-06] MEDS: PIPERACILLIN/TAZOB 3.375 GM 3.375 GM in DEXTROSE 5%-WATER - 50 ML IVPB ONE (13:20)
[2023-10-06] MEDS ORDERED: PIPERACILLIN/TAZOB 3.375 GM 3.375 GM/50 ML BAG IVPB ONE (13:26)
[2023-10-06 13:29] LABS: EPI CELLS 2 /uL (0-25.1); HYALINE CASTS 2 /uL (0-3.1); PH,URINE 6.5 (5.0-8.0); URINE APPEARANCE CLOUDY; URINE BACTERIA 117 /uL (0-1359); URINE BILIRUBIN NEGATIVE (NEGATIVE); URINE COLOR YELLOW; URINE GLUCOSE (UA) NEGATIVE (NEGATIVE); URINE KETONE NEGATIVE (NEGATIVE); URINE LEUK ESTERASE 3+ (NEGATIVE); URINE NITRITE NEGATIVE (NEGATIVE); URINE PROTEIN TRACE (NEGATIVE); URINE UROBILINOGEN 0.2 mg/dL (0.2-1.0); URINE WBC 3191 /uL (0-25.8)
[2023-10-06 14:33] LABS: URINE RBC 62.9 /uL (0-23.9); YEAST MODERATE (NEGATIVE)
== END 2023-10-06 13:56 | disposition home or self-care (01) ==
LOC: JER 11:26
PROC: 0T9B70Z Drainage of Bladder with Drainage Device, Via Natural or Artificial Opening (ICD-10-PCS; principal; 2023-10-06)
PROC: 3E03329 Introduction of Other Anti-infective into Peripheral Vein, Percutaneous Approach (ICD-10-PCS; 2023-10-06)
DX: T83.098A Other mechanical complication of other urinary catheter, initial encounter (principal); N39.0 Urinary tract infection, site not specified
CPT/HCPCS: 81003; 87086; 99284-25

== ENCOUNTER 2023-10-26 22:48 | Emergency (ER) | payer OTHER ==
[2023-10-26 23:03] VITALS: BP 160/52; PULSE 88; RESP 18; TEMP 98.1; BMI 26.3
== END 2023-10-26 23:40 | disposition home or self-care (01) ==
LOC: JER 22:48
PROC: 0T2BX0Z Change Drainage Device in Bladder, External Approach (ICD-10-PCS; principal; 2023-10-26)
DX: T83.021A Displacement of indwelling urethral catheter, initial encounter (principal)
CPT/HCPCS: 99282-25

== ENCOUNTER 2023-11-18 04:53 | Day surgery (SDC) | payer OTHER ==
[2023-11-12 16:12] VITALS: BMI 28.3
[2023-11-18] MEDS ORDERED: MIDAZOLAM HCL 2 MG/2 ML SINGLE DOSE VIAL ONE (13:34)
[2023-11-18] MEDS ORDERED: PROPOFOL 20 ML ONE (13:34)
[2023-11-18] MEDS: ceFAZolin SODIUM 1 GM VIAL IVPB ONE (14:15)
[2023-11-18 15:38] VITALS: TEMP 98.6
[2023-11-18 16:58] VITALS: BP 116/60; PULSE 78; RESP 16
== END 2023-11-18 16:20 | disposition home or self-care (01) ==
LOC: JASU-SURG 04:53
PROVIDERS: ATTEND Urology
PROC: BT14YZZ Fluoroscopy of Kidneys, Ureters and Bladder using Other Contrast (ICD-10-PCS; 2023-11-18)
PROC: 0T788DZ Dilation of Bilateral Ureters with Intraluminal Device, Via Natural or Artificial Opening Endoscopic (ICD-10-PCS; principal; 2023-11-18 14:00)
DX: N13.30 Unspecified hydronephrosis (principal)
CPT/HCPCS: 76000-TC-FY; 82962; 94760; C2617

== ENCOUNTER 2023-11-26 22:30 | Inpatient (IN) | payer OTHER ==
[2023-11-27 00:32] LABS: BASO % 0.7 % (0-2.0); EOS % 0.8 % (0-4.5); HEMATOCRIT 34.7 % (32.4-45.2); HEMOGLOBIN 10.9 GM/dL (10.7-15.3); LYMPH % 11.8 % (8-40); MCH 24.7 pg (25.7-33.7); MCHC 31.3 g/dl (32.0-36.0); MEAN CELL VOLUME 78.8 fl (80-96); MEAN PLT VOLUME 8.9 fl (7.5-11.1); MONO % 10.3 % (3.8-10.2); NEUT % 76.4 % (42.8-82.8); PLATELET COUNT 208 10^3/uL (134-434); RBC 4.41 M/mm3 (3.60-5.2); RDW 24.1 % (11.6-15.6); WHITE BLOOD COUNT 11.2 K/mm3 (4.0-10.0)
[2023-11-27] MEDS ORDERED: ACETAMINOPHEN 500 MG TABLET (FP) ONE (00:32)
[2023-11-27] MEDS: ACETAMINOPHEN 500 MG TABLET (FP) PO ONE (00:40)
[2023-11-27 00:47] LABS: EPI CELLS 20 /uL (0-25.1); HYALINE CASTS 12 /uL (0-3.1); URINE APPEARANCE TURBID; URINE BACTERIA 1395 /uL (0-1359); URINE BILIRUBIN NEGATIVE (NEGATIVE); URINE COLOR YELLOW; URINE GLUCOSE (UA) NEGATIVE (NEGATIVE); URINE KETONE NEGATIVE (NEGATIVE); URINE LEUK ESTERASE 3+ (NEGATIVE); URINE NITRITE POSITIVE (NEGATIVE); URINE PROTEIN 3+ (NEGATIVE); URINE UROBILINOGEN 0.2 mg/dL (0.2-1.0); URINE WBC 10994 /uL (0-25.8)
[2023-11-27 00:47] LABS: POTASSIUM 4.1 mmol/L (3.5-5.1)
[2023-11-27 00:49] LABS: BLOOD UREA NITROGEN 26.9 mg/dL (7-18); CALCIUM 8.3 mg/dL (8.5-10.1)
[2023-11-27 00:50] LABS: ALBUMIN 3.1 g/dl (3.4-5.0)
[2023-11-27 00:53] LABS: CREATININE 0.8 mg/dL (0.55-1.3)
[2023-11-27 00:54] LABS: TOT PROT 5.7 g/dl (6.4-8.2)
[2023-11-27] MEDS ORDERED: CEFTRIAXONE 1 GM/50 ML BAG ONE (01:23)
[2023-11-27] MEDS: CEFTRIAXONE 1,000 MG in DEXTROSE 5%-WATER - 50 ML IVPB ONE (01:26)
[2023-11-27 03:15] LABS: ANISOCYTOSIS 1+; MACROCYTOSIS 1+
[2023-11-27 03:36] LABS: URINE RBC 428.1 /uL (0-23.9); YEAST NONE SEEN (NEGATIVE)
[2023-11-27] MEDS ORDERED: ACETAMINOPHEN 325 MG TABLET (FP) ONE ×2 (05:14→10:53)
[2023-11-27] MEDS: ACETAMINOPHEN 325 MG TABLET (FP) PO ONE (05:15)
[2023-11-27] MEDS: INSULIN ASPART SLIDING SCALE (NOVOLOG) 1 VIAL SQ SCH (09:43)
[2023-11-27] MEDS ORDERED: METOPROLOL TARTRATE 25 MG TABLET (FP) ONE (10:02)
[2023-11-27] MEDS ORDERED: FOLIC ACID 1 MG TABLET (FP) ONE (10:02)
[2023-11-27] MEDS ORDERED: ASCORBIC ACID 500 MG TABLET (FP) ONE (10:03)
[2023-11-27] MEDS ORDERED: DOCUSATE SODIUM 100 MG CAPSULE (FP) PO ONE (10:03)
[2023-11-27] MEDS ORDERED: ASPIRIN 81 MG CHEWABLE TABLETS ONE (10:03)
[2023-11-27] MEDS ORDERED: DULoxetine HCL 30 MG CAPSULE.DR PO ONE (10:03)
[2023-11-27] MEDS ORDERED: VALSARTAN 80 MG TABLET ONE (10:03)
[2023-11-27] MEDS ORDERED: FUROSEMIDE 20 MG TABLET (FP) ONE (10:04)
[2023-11-27] MEDS ORDERED: LIDOCAINE 5% TOPICAL PATCH ONE (10:04)
[2023-11-27] MEDS: LIDOCAINE 5% TOPICAL PATCH TP SCH (10:15)
[2023-11-27] MEDS: METOPROLOL TARTRATE 25 MG TABLET (FP) PO SCH (10:15)
[2023-11-27] MEDS: DOCUSATE SODIUM 100 MG CAPSULE (FP) PO SCH (10:15)
[2023-11-27] MEDS: VALSARTAN 40 MG TABLET PO SCH (10:15)
[2023-11-27] MEDS: FOLIC ACID 1 MG TABLET (FP) PO SCH (10:15)
[2023-11-27] MEDS: PRAMIPEXOLE DIHYDROCHLORIDE 0.5 MG TABLET PO SCH (10:15)
[2023-11-27] MEDS: DULoxetine HCL 30 MG CAPSULE.DR PO SCH (10:15)
[2023-11-27] MEDS: ASPIRIN 81 MG CHEWABLE TABLETS PO SCH (10:15)
[2023-11-27] MEDS: FUROSEMIDE 20 MG TABLET (FP) PO SCH (10:16)
[2023-11-27] MEDS: ASCORBIC ACID 500 MG TABLET (FP) PO SCH (10:16)
[2023-11-27] MEDS: ACETAMINOPHEN 325 MG TABLET (FP) PO PRN (10:55)
[2023-11-27 13:08] LABS: EPI CELLS 4 /uL (0-25.1); HYALINE CASTS 1 /uL (0-3.1); URINE APPEARANCE TURBID; URINE BILIRUBIN NEGATIVE (NEGATIVE); URINE COLOR YELLOW; URINE GLUCOSE (UA) NEGATIVE (NEGATIVE); URINE KETONE NEGATIVE (NEGATIVE); URINE LEUK ESTERASE 3+ (NEGATIVE); URINE NITRITE POSITIVE (NEGATIVE); URINE PROTEIN 3+ (NEGATIVE); URINE RBC 209 /uL (0-23.9); URINE WBC 8182 /uL (0-25.8)
[2023-11-27] MEDS ORDERED: INSULIN ASPART SLIDING SCALE (NOVOLOG) 1 VIAL SQ ONE (13:24)
[2023-11-27 13:32] LABS: URINE BACTERIA 428 /uL (0-1359)
[2023-11-27 18:05] VITALS: BMI 27.3
[2023-11-27] MEDS: SODIUM CHLORIDE 1,000 ML IV SCH (19:10)
[2023-11-27] MEDS: PIPERACILLIN/TAZOB 3.375 GM 3.375 GM in DEXTROSE 5%-WATER - 50 ML IVPB SCH (19:13)
[2023-11-27] MEDS: EZETIMIBE 10 MG TABLET (FP) PO SCH (21:44)
[2023-11-27] MEDS: ATORVASTATIN CA 40 MG TABLET (FP) PO SCH (21:44)
[2023-11-27] MEDS: LIDOCAINE PATCH REMOVAL MC SCH (21:45)
[2023-11-27 22:03] LABS: IRON SERUM 14 ug/dL (50-175); TOTAL IRON BINDING CAPACITY 252 ug/dL (250-450)
[2023-11-28 02:04] VITALS: RESP 18
[2023-11-28] MEDS ORDERED: CEFTRIAXONE 1 GM in DEXTROSE 5%-WATER - 50 ML IVPB SCH (10:00)
[2023-11-28] MEDS: IRON SUCROSE INJECTION 200 MG in SODIUM CHLORIDE 100 ML IVPB ONE (10:30)
[2023-11-29 07:29] LABS: HEMATOCRIT 33.1 % (32.4-45.2); HEMOGLOBIN 10.2 GM/dL (10.7-15.3); MCH 24.7 pg (25.7-33.7); MEAN CELL VOLUME 79.9 fl (80-96); MEAN PLT VOLUME 8.7 fl (7.5-11.1); PLATELET COUNT 192 10^3/uL (134-434); RBC 4.14 M/mm3 (3.60-5.2); RDW 23.7 % (11.6-15.6); WHITE BLOOD COUNT 8.3 K/mm3 (4.0-10.0)
[2023-11-29 07:31] LABS: POTASSIUM 3.7 mmol/L (3.5-5.1)
[2023-11-29 07:34] LABS: CALCIUM 8.5 mg/dL (8.5-10.1)
[2023-11-29 07:35] LABS: ALBUMIN 2.8 g/dl (3.4-5.0); BLOOD UREA NITROGEN 29.4 mg/dL (7-18)
[2023-11-29 07:38] LABS: CREATININE 0.9 mg/dL (0.55-1.3)
[2023-11-29 07:39] LABS: BILIRUBIN,TOTAL 0.9 mg/dL (0.2-1); TOT PROT 5.2 g/dl (6.4-8.2)
[2023-11-30 10:39] VITALS: BP 150/68; PULSE 77; TEMP 98.8
== END 2023-11-30 14:25 | disposition home or self-care (01) | DRG 699 ==
LOC: JER 22:30 → JERBED 11-27 02:10 → J7W 11-27 15:20 → OBSVTOIN 11-28 12:18
PROVIDERS: ADMIT Internal Medicine; ATTEND Family Medicine
DX: T83.511A Infection and inflammatory reaction due to indwelling urethral catheter, initial encounter (principal); I13.0 Hypertensive heart and chronic kidney disease with heart failure and stage 1 through stage 4 chronic kidney disease, or unspecified chronic kidney disease; I50.32 Chronic diastolic (congestive) heart failure; I25.10 Atherosclerotic heart disease of native coronary artery without angina pectoris; I48.91 Unspecified atrial fibrillation; D64.9 Anemia, unspecified; E11.22 Type 2 diabetes mellitus with diabetic chronic kidney disease; N18.9 Chronic kidney disease, unspecified; N39.0 Urinary tract infection, site not specified; B96.5 Pseudomonas (aeruginosa) (mallei) (pseudomallei) as the cause of diseases classified elsewhere; Y84.6 Urinary catheterization as the cause of abnormal reaction of the patient, or of later complication, without mention of misadventure at the time of the procedure
CPT/HCPCS: 36415; 71045-TC-FY; 80053; 81003; 82962; 83036; 83540; 83550; 83605; 83690; 84484; 85025; 85027; 87040; 87086; 87186; 93005; 93010; 99285-25; G0378; J1756

== ENCOUNTER 2023-12-15 03:40 | Inpatient (IN) | payer OTHER ==
[2023-12-15] MEDS ORDERED: ACETAMINOPHEN INJECTION 100 ML IVPB ONE (04:30)
[2023-12-15 04:41] LABS: BASO % 0.5 % (0-2.0); EOS % 0.6 % (0-4.5); HEMATOCRIT 31.7 % (32.4-45.2); HEMOGLOBIN 10.1 GM/dL (10.7-15.3); LYMPH % 12.3 % (8-40); MCH 24.5 pg (25.7-33.7); MCHC 31.9 g/dl (32.0-36.0); MEAN CELL VOLUME 76.8 fl (80-96); MEAN PLT VOLUME 8.3 fl (7.5-11.1); MONO % 14.9 % (3.8-10.2); NEUT % 71.7 % (42.8-82.8); PLATELET COUNT 286 10^3/uL (134-434); RBC 4.12 M/mm3 (3.60-5.2); RDW 21.3 % (11.6-15.6); WHITE BLOOD COUNT 10.6 K/mm3 (4.0-10.0)
[2023-12-15 04:43] LABS: INR 1.31 (0.83-1.09)
[2023-12-15 04:45] LABS: ACTIVATED PTT 29.8 SECONDS (25.2-36.5)
[2023-12-15 04:55] LABS: ALBUMIN 2.8 g/dl (3.4-5.0); ANION GAP 10 mmol/L (4-13); BLOOD UREA NITROGEN 47.5 mg/dL (7-18); CALCIUM 8.5 mg/dL (8.5-10.1); CHLORIDE 100 mmol/L (98-107); CO2 24 mmol/L (21-32); GLUCOSE,RANDOM 221 mg/dL (74-106); MAGNESIUM 1.5 mg/dL (1.8-2.4); SODIUM 133 mmol/L (136-145)
[2023-12-15 04:58] LABS: CREATININE 1.7 mg/dL (0.55-1.3); SGOT/AST 10 U/L (15-37); SGPT/ALT 10 U/L (13-61)
[2023-12-15 04:59] LABS: PHOSPHOROUS 3.4 mg/dL (2.5-4.9)
[2023-12-15 05:00] LABS: BILIRUBIN,TOTAL 0.5 mg/dL (0.2-1); TOT PROT 5.4 g/dl (6.4-8.2)
[2023-12-15 05:01] LABS: ALK PHOS 85 U/L (45-117)
[2023-12-15] MEDS: ACETAMINOPHEN 1000 MG/100 ML BAG IVPB ONE (05:10)
[2023-12-15] MEDS ORDERED: MAGNESIUM SULFATE IN WATER 2 GM/50 ML IVPB IVPB ONE (05:44)
[2023-12-15] MEDS: MAGNESIUM SULFATE IN WATER 2 GM/50 ML IVPB IVPB ONE (05:45)
[2023-12-15] MEDS: LACTATED RINGERS SOLUTION 1000 ML INFUS.BAG IV ONE (05:45)
[2023-12-15] MEDS: SODIUM CHLORIDE 0.9% 500 ML INFUS.BAG IV ONE (05:53)
[2023-12-15 06:22] LABS: ANISOCYTOSIS 2+
[2023-12-15 06:54] LABS: EPI CELLS >36 /uL (0-25.1); HYALINE CASTS 10 /uL (0-3.1); PH,URINE 5.5 (5.0-8.0); URINE APPEARANCE TURBID; URINE BACTERIA 2046 /uL (0-1359); URINE BILIRUBIN NEGATIVE (NEGATIVE); URINE COLOR YELLOW; URINE GLUCOSE (UA) NEGATIVE (NEGATIVE); URINE KETONE NEGATIVE (NEGATIVE); URINE LEUK ESTERASE 3+ (NEGATIVE); URINE NITRITE NEGATIVE (NEGATIVE); URINE PROTEIN 3+ (NEGATIVE); URINE UROBILINOGEN 0.2 mg/dL (0.2-1.0); URINE WBC 13835 /uL (0-25.8)
[2023-12-15] MEDS ORDERED: PIPERACILLIN/TAZOB 2.25 GM 2.25 GM/50 ML BAG IVPB ONE (06:57)
[2023-12-15] MEDS: PIPERACILLIN/TAZOB 2.25 GM 2.25 GM in DEXTROSE 5%-WATER - 50 ML IVPB ONE (07:04)
[2023-12-15 08:21] LABS: URINE RBC 726 /uL (0-23.9)
[2023-12-15 08:22] LABS: YEAST PRESENT (NEGATIVE)
[2023-12-15] MEDS ORDERED: ASPIRIN 81 MG CHEWABLE TABLETS ONE (09:25)
[2023-12-15] MEDS ORDERED: METOPROLOL TARTRATE 25 MG TABLET (FP) ONE (09:25)
[2023-12-15] MEDS ORDERED: DULoxetine HCL 30 MG CAPSULE.DR PO ONE (09:26)
[2023-12-15] MEDS ORDERED: LIDOCAINE 4% PATCH TP ONE (09:27)
[2023-12-15] MEDS: ASPIRIN 81 MG CHEWABLE TABLETS PO SCH (09:38)
[2023-12-15] MEDS: LIDOCAINE 5% TOPICAL PATCH TP SCH (09:38)
[2023-12-15] MEDS: DULoxetine HCL 30 MG CAPSULE.DR PO SCH (09:38)
[2023-12-15] MEDS: METOPROLOL TARTRATE 25 MG TABLET (FP) PO SCH (09:39)
[2023-12-15] MEDS: PRAMIPEXOLE DIHYDROCHLORIDE 0.5 MG TABLET PO SCH (10:11)
[2023-12-15] MEDS ORDERED: PIPERACILLIN/TAZOB 3.375 GM 3.375 GM in DEXTROSE 5%-WATER - 50 ML IVPB SCH ×2 (10:15→18:00)
[2023-12-15] MEDS ORDERED: PRAMIPEXOLE DIHYDROCHLORIDE 0.5 MG TABLET PO SCH (14:44)
[2023-12-15] MEDS ORDERED: ALBUTEROL SO4 2.5/IPRATROPIUM 0.5 INH SOL 3 ML VIAL.NEB. NEB ONE (16:12)
[2023-12-15] MEDS ORDERED: FUROSEMIDE 40 MG/4 ML INJECTABLE VIAL ONE (16:13)
[2023-12-15] MEDS: ALBUTEROL SO4 2.5/IPRATROPIUM 0.5 INH SOL 3 ML VIAL.NEB. NEB SCH (16:20)
[2023-12-15] MEDS: FUROSEMIDE 40 MG/4 ML INJECTABLE VIAL IVPUSH ONE (16:20)
[2023-12-15] MEDS ORDERED: PIPERACILLIN/TAZOB 3.375 GM 3.375 GM/50 ML BAG IVPB ONE (16:44)
[2023-12-15 16:46] LABS: N-TERMINAL BNP 20367.3 pg/ml (5-450)
[2023-12-15] MEDS: PIPERACILLIN/TAZOB 3.375 GM 3.375 GM in DEXTROSE 5%-WATER - 50 ML IVPB SCH (17:19)
[2023-12-15] MEDS: EZETIMIBE 10 MG TABLET (FP) PO SCH (22:55)
[2023-12-15] MEDS: LIDOCAINE PATCH REMOVAL MC SCH (22:55)
[2023-12-15] MEDS: ATORVASTATIN CA 40 MG TABLET (FP) PO SCH (22:55)
[2023-12-16 07:57] LABS: BASO % 0.7 % (0-2.0); EOS % 0.8 % (0-4.5); HEMATOCRIT 33.2 % (32.4-45.2); HEMOGLOBIN 10.1 GM/dL (10.7-15.3); LYMPH % 11.7 % (8-40); MCH 24.2 pg (25.7-33.7); MCHC 30.6 g/dl (32.0-36.0); MEAN CELL VOLUME 79.1 fl (80-96); MEAN PLT VOLUME 8.2 fl (7.5-11.1); MONO % 11.2 % (3.8-10.2); NEUT % 75.6 % (42.8-82.8); PLATELET COUNT 286 10^3/uL (134-434); RDW 21.7 % (11.6-15.6); WHITE BLOOD COUNT 11.5 K/mm3 (4.0-10.0)
[2023-12-16 08:09] LABS: POTASSIUM 4.1 mmol/L (3.5-5.1)
[2023-12-16 08:12] LABS: BLOOD UREA NITROGEN 44.9 mg/dL (7-18); CALCIUM 8.6 mg/dL (8.5-10.1)
[2023-12-16 08:14] LABS: MAGNESIUM 1.8 mg/dL (1.8-2.4)
[2023-12-16 08:15] LABS: ALBUMIN 2.6 g/dl (3.4-5.0)
[2023-12-16 08:16] LABS: BILIRUBIN,TOTAL 0.7 mg/dL (0.2-1); TOT PROT 5.4 g/dl (6.4-8.2)
[2023-12-16 08:17] LABS: CREATININE 1.7 mg/dL (0.55-1.3)
[2023-12-16] MEDS: HEPARIN NA (PORCINE) 5,000 UNITS/ML 1ML VIAL SQ SCH (09:40)
[2023-12-16] MEDS: FUROSEMIDE 40 MG/4 ML INJECTABLE VIAL IVPUSH SCH (13:07)
[2023-12-16] MEDS: FLUCONAZOLE 100 MG TABLET (UD) PO SCH (14:50)
[2023-12-16] MEDS: AMPICILLIN NA/SULBACTAM NA 1.5 GM in SODIUM CHLORIDE 100 ML IVPB SCH (15:40)
[2023-12-16] MEDS: PRAMIPEXOLE DIHYDROCHLORIDE 0.5 MG TABLET PO SCH (21:22)
[2023-12-17 11:37] LABS: BASO % 0.4 % (0-2.0); EOS % 0.3 % (0-4.5); HEMATOCRIT 31.7 % (32.4-45.2); HEMOGLOBIN 9.7 GM/dL (10.7-15.3); LYMPH % 11.4 % (8-40); MCHC 30.8 g/dl (32.0-36.0); MEAN CELL VOLUME 77.8 fl (80-96); MEAN PLT VOLUME 8.4 fl (7.5-11.1); MONO % 10.2 % (3.8-10.2); NEUT % 77.7 % (42.8-82.8); PLATELET COUNT 293 10^3/uL (134-434); RBC 4.07 M/mm3 (3.60-5.2); RDW 21.6 % (11.6-15.6); WHITE BLOOD COUNT 12.7 K/mm3 (4.0-10.0)
[2023-12-17 11:59] LABS: POTASSIUM 4.1 mmol/L (3.5-5.1)
[2023-12-17 12:09] LABS: CALCIUM 8.6 mg/dL (8.5-10.1)
[2023-12-17 12:10] LABS: ALBUMIN 2.5 g/dl (3.4-5.0); BLOOD UREA NITROGEN 47.3 mg/dL (7-18)
[2023-12-17 12:13] LABS: CREATININE 1.8 mg/dL (0.55-1.3)
[2023-12-17 12:15] LABS: BILIRUBIN,TOTAL 0.7 mg/dL (0.2-1); TOT PROT 5.4 g/dl (6.4-8.2)
[2023-12-18 08:02] LABS: EOS % 0.9 % (0-4.5); HEMATOCRIT 30.3 % (32.4-45.2); HEMOGLOBIN 9.4 GM/dL (10.7-15.3); LYMPH % 13.8 % (8-40); MCH 24.2 pg (25.7-33.7); MCHC 31.1 g/dl (32.0-36.0); MEAN CELL VOLUME 77.7 fl (80-96); MEAN PLT VOLUME 8.3 fl (7.5-11.1); MONO % 9.4 % (3.8-10.2); NEUT % 74.9 % (42.8-82.8); PLATELET COUNT 291 10^3/uL (134-434); RDW 21.1 % (11.6-15.6); WHITE BLOOD COUNT 11.2 K/mm3 (4.0-10.0)
[2023-12-18 08:26] LABS: ALBUMIN 2.5 g/dl (3.4-5.0); CALCIUM 8.9 mg/dL (8.5-10.1)
[2023-12-18 08:27] LABS: BLOOD UREA NITROGEN 49.4 mg/dL (7-18)
[2023-12-18 08:30] LABS: CREATININE 1.7 mg/dL (0.55-1.3)
[2023-12-18 08:32] LABS: BILIRUBIN,TOTAL 0.6 mg/dL (0.2-1); TOT PROT 5.2 g/dl (6.4-8.2)
[2023-12-18 09:29] LABS: ANISOCYTOSIS 2+; MACROCYTOSIS 0
[2023-12-18 09:31] LABS: PLATELET ESTIMATE ADEQUATE
[2023-12-18] MEDS: FUROSEMIDE 40 MG TABLET (FP) PO SCH (10:13)
[2023-12-19] MEDS: INSULIN ASPART SLIDING SCALE (NOVOLOG) 1 VIAL SQ SCH (21:28)
[2023-12-20 07:42] LABS: CALCIUM 8.4 mg/dL (8.5-10.1)
[2023-12-20 07:43] LABS: BLOOD UREA NITROGEN 41.1 mg/dL (7-18)
[2023-12-20 07:46] LABS: CREATININE 1.4 mg/dL (0.55-1.3)
[2023-12-21 12:49] LABS: BASO % 0.5 % (0-2.0); EOS % 0.9 % (0-4.5); HEMATOCRIT 33.7 % (32.4-45.2); HEMOGLOBIN 10.7 GM/dL (10.7-15.3); LYMPH % 20.4 % (8-40); MCH 24.4 pg (25.7-33.7); MCHC 31.7 g/dl (32.0-36.0); MEAN CELL VOLUME 76.9 fl (80-96); MEAN PLT VOLUME 7.8 fl (7.5-11.1); NEUT % 68.2 % (42.8-82.8); PLATELET COUNT 300 10^3/uL (134-434); RBC 4.37 M/mm3 (3.60-5.2); RDW 21.2 % (11.6-15.6); WHITE BLOOD COUNT 10.4 K/mm3 (4.0-10.0)
[2023-12-21 13:13] LABS: POTASSIUM 3.6 mmol/L (3.5-5.1)
[2023-12-21 13:17] LABS: ALBUMIN 2.6 g/dl (3.4-5.0); BLOOD UREA NITROGEN 37.8 mg/dL (7-18)
[2023-12-21 13:20] LABS: ANISOCYTOSIS 1+; CREATININE 1.3 mg/dL (0.55-1.3); MACROCYTOSIS 0; OVALOCYTE 1+
[2023-12-21 13:21] LABS: BILIRUBIN,TOTAL 0.7 mg/dL (0.2-1)
[2023-12-21 13:22] LABS: TOT PROT 5.6 g/dl (6.4-8.2)
[2023-12-21] MEDS ORDERED: INSULIN ASPART SLIDING SCALE (NOVOLOG) 1 VIAL SQ ONE (21:00)
[2023-12-22] MEDS: LORazepam 2 MG/ML SDV VIAL IVPB ONE (05:45)
[2023-12-22] MEDS: LORazepam 2 MG/ML SDV VIAL IVPUSH ONE (05:59)
[2023-12-22] MEDS: levETIRAcetam 500 MG/5 ML INJECTION VIAL IVPB ONE (06:40)
[2023-12-22] MEDS: ACETAMINOPHEN 1000 MG/100 ML BAG IVPB ONE (07:16)
[2023-12-22 08:00] LABS: EOS % 0.5 % (0-4.5); HEMATOCRIT 34.2 % (32.4-45.2); HEMOGLOBIN 10.4 GM/dL (10.7-15.3); LYMPH % 7.5 % (8-40); MCH 23.9 pg (25.7-33.7); MCHC 30.5 g/dl (32.0-36.0); MEAN CELL VOLUME 78.3 fl (80-96); MEAN PLT VOLUME 8.3 fl (7.5-11.1); MONO % 7.9 % (3.8-10.2); NEUT % 83.1 % (42.8-82.8); PLATELET COUNT 321 10^3/uL (134-434); RBC 4.36 M/mm3 (3.60-5.2); WHITE BLOOD COUNT 16.8 K/mm3 (4.0-10.0)
[2023-12-22 08:10] LABS: POTASSIUM 4.2 mmol/L (3.5-5.1)
[2023-12-22 08:35] LABS: ALBUMIN 2.7 g/dl (3.4-5.0); BLOOD UREA NITROGEN 36.6 mg/dL (7-18); CALCIUM 8.4 mg/dL (8.5-10.1)
[2023-12-22 08:39] LABS: BILIRUBIN,TOTAL 0.8 mg/dL (0.2-1); CREATININE 1.3 mg/dL (0.55-1.3); TOT PROT 5.6 g/dl (6.4-8.2)
[2023-12-22] MEDS: FUROSEMIDE 40 MG/4 ML INJECTABLE VIAL IVPUSH ONE (17:50)
[2023-12-22] MEDS: DEXTROSE 5%-0.45% SALINE 1,000 ML IV SCH (17:51)
[2023-12-22] MEDS: levETIRAcetam 500 MG/5 ML INJECTION VIAL IVPB SCH (21:54)
[2023-12-23 07:35] LABS: BASO % 0.8 % (0-2.0); EOS % 0.5 % (0-4.5); HEMATOCRIT 32.9 % (32.4-45.2); HEMOGLOBIN 10.1 GM/dL (10.7-15.3); LYMPH % 15.7 % (8-40); MCH 24.4 pg (25.7-33.7); MCHC 30.8 g/dl (32.0-36.0); MEAN PLT VOLUME 8.3 fl (7.5-11.1); PLATELET COUNT 259 10^3/uL (134-434); RBC 4.17 M/mm3 (3.60-5.2); WHITE BLOOD COUNT 10.8 K/mm3 (4.0-10.0)
[2023-12-23 07:51] LABS: POTASSIUM 3.3 mmol/L (3.5-5.1)
[2023-12-23 08:13] LABS: ALBUMIN 2.6 g/dl (3.4-5.0); BLOOD UREA NITROGEN 35.6 mg/dL (7-18); CALCIUM 8.4 mg/dL (8.5-10.1)
[2023-12-23 08:16] LABS: CREATININE 1.2 mg/dL (0.55-1.3)
[2023-12-23 08:17] LABS: BILIRUBIN,TOTAL 0.6 mg/dL (0.2-1); TOT PROT 5.2 g/dl (6.4-8.2)
[2023-12-23] MEDS: KCL 10 MEQ IVPB 10 MEQ/100 ML INFUS.BAG IVPB SCH (10:10)
[2023-12-23] MEDS: levETIRAcetam 500 MG/5 ML INJECTION VIAL IVPB SCH ×2 (10:29→21:49)
[2023-12-23] MEDS: LIDOCAINE PATCH REMOVAL MC SCH (21:49)
[2023-12-23] MEDS: MUPIROCIN 2% TOPICAL OINTMENT FOR DECOLONIZATION NS SCH (21:49)
[2023-12-23] MEDS: HEPARIN NA (PORCINE) 5,000 UNITS/ML 1ML VIAL SQ SCH (21:49)
[2023-12-23] MEDS: CHLORHEXIDINE GLUCONATE 4% CLEANSER FOR DECOLONIZATION TP SCH (21:49)
[2023-12-23] MEDS: EZETIMIBE 10 MG TABLET (FP) PO SCH (21:49)
[2023-12-23] MEDS: INSULIN ASPART SLIDING SCALE (NOVOLOG) 1 VIAL SQ SCH (21:50)
[2023-12-23] MEDS: ATORVASTATIN CA 40 MG TABLET (FP) PO SCH (21:50)
[2023-12-23] MEDS: METOPROLOL TARTRATE 25 MG TABLET (FP) PO SCH (21:50)
[2023-12-23] MEDS: PRAMIPEXOLE DIHYDROCHLORIDE 0.5 MG TABLET PO SCH (21:55)
[2023-12-23] MEDS: CEFTRIAXONE 1 GM in DEXTROSE 5%-WATER - 50 ML IVPB SCH (23:18)
[2023-12-23] MEDS: SODIUM CHLORIDE FOR INHALATION 3 ML VIAL.NEB IH SCH (23:58)
[2023-12-23] MEDS: ALBUTEROL SO4 2.5/IPRATROPIUM 0.5 INH SOL 3 ML VIAL.NEB. NEB SCH (23:58)
[2023-12-24] MEDS ORDERED: AMPICILLIN NA/SULBACTAM NA 1.5 GM in SODIUM CHLORIDE 100 ML IVPB SCH (04:00)
[2023-12-24] MEDS ORDERED: METOPROLOL TARTRATE 5 MG/5 ML VIAL ONE (08:14)
[2023-12-24 09:41] LABS: BASO % 0.9 % (0-2.0); EOS % 1.3 % (0-4.5); HEMATOCRIT 34.7 % (32.4-45.2); HEMOGLOBIN 10.9 GM/dL (10.7-15.3); LYMPH % 14.9 % (8-40); MCH 24.6 pg (25.7-33.7); MCHC 31.5 g/dl (32.0-36.0); MEAN CELL VOLUME 78.1 fl (80-96); MEAN PLT VOLUME 8.1 fl (7.5-11.1); MONO % 7.7 % (3.8-10.2); NEUT % 75.2 % (42.8-82.8); PLATELET COUNT 257 10^3/uL (134-434); RBC 4.45 M/mm3 (3.60-5.2); RDW 21.3 % (11.6-15.6); WHITE BLOOD COUNT 10.6 K/mm3 (4.0-10.0)
[2023-12-24] MEDS: METOPROLOL TARTRATE 5 MG/5 ML VIAL IVPUSH ONE (09:57)
[2023-12-24] MEDS: LIDOCAINE 5% TOPICAL PATCH TP SCH (09:58)
[2023-12-24] MEDS: FUROSEMIDE 40 MG TABLET (FP) PO SCH (09:59)
[2023-12-24] MEDS: ASPIRIN 81 MG CHEWABLE TABLETS PO SCH (09:59)
[2023-12-24] MEDS: DULoxetine HCL 30 MG CAPSULE.DR PO SCH (09:59)
[2023-12-24 10:03] LABS: POTASSIUM 3.6 mmol/L (3.5-5.1)
[2023-12-24 10:04] LABS: CALCIUM 8.8 mg/dL (8.5-10.1)
[2023-12-24 10:05] LABS: BLOOD UREA NITROGEN 28.4 mg/dL (7-18); MAGNESIUM 1.5 mg/dL (1.8-2.4)
[2023-12-24 10:09] LABS: PHOSPHOROUS 3.5 mg/dL (2.5-4.9)
[2023-12-24] MEDS: FLUCONAZOLE 100 MG TABLET (UD) PO SCH (10:18)
[2023-12-24] MEDS ORDERED: MAGNESIUM 2GM/50ML STERILE WATER IVPB IVPB ONE (11:00)
[2023-12-24] MEDS ORDERED: LIDOCAINE HCL 1%, 10 MG/ML (20ML VIAL) ONE (12:22)
[2023-12-24] MEDS: MAGNESIUM SULFATE IN WATER 2 GM/50 ML IVPB IVPB ONE (12:29)
[2023-12-24 14:09] VITALS: BMI 25.4
[2023-12-24] MEDS: ACETYLCYSTEINE 20% 200MG/ML 4 ML VIAL *FOR ORAL / INH USE ONLY NEB SCH (15:36)
[2023-12-24] MEDS: PIPERACILLIN/TAZOB 3.375 GM 3.375 GM in DEXTROSE 5%-WATER - 50 ML IVPB SCH (18:47)
[2023-12-24] MEDS: ALBUTEROL SO4 0.083% IH SOL 2.5 MG/3 ML VIAL.NEB. NEB SCH (20:07)
[2023-12-24] MEDS: METOPROLOL TARTRATE 50 MG TABLET (FP) PO SCH (21:17)
[2023-12-25] MEDS: METOPROLOL TARTRATE 50 MG TABLET (FP) PO ONE (06:02)
[2023-12-25] MEDS ORDERED: MUPIROCIN 2% TOPICAL OINTMENT FOR DECOLONIZATION NS SCH (10:00)
[2023-12-25] MEDS: FLUCONAZOLE 100 MG TABLET (UD) PO SCH (10:56)
[2023-12-25] MEDS: DULoxetine HCL 30 MG CAPSULE.DR PO SCH (10:56)
[2023-12-25] MEDS: FUROSEMIDE 40 MG TABLET (FP) PO SCH (10:56)
[2023-12-25] MEDS: HEPARIN NA (PORCINE) 5,000 UNITS/ML 1ML VIAL SQ SCH (10:57)
[2023-12-25] MEDS: METOPROLOL TARTRATE 50 MG TABLET (FP) PO SCH (10:57)
[2023-12-25] MEDS: levETIRAcetam 500 MG/5 ML INJECTION VIAL IVPB SCH (10:57)
[2023-12-25] MEDS: ASPIRIN 81 MG CHEWABLE TABLETS PO SCH (10:57)
[2023-12-25] MEDS: LIDOCAINE 5% TOPICAL PATCH TP SCH (10:57)
[2023-12-25] MEDS: INSULIN ASPART SLIDING SCALE (NOVOLOG) 1 VIAL SQ SCH (11:57)
[2023-12-25] MEDS ORDERED: ACETYLCYSTEINE 20% 200MG/ML 4 ML VIAL *FOR ORAL / INH USE ONLY NEB SCH (12:00)
[2023-12-25] MEDS: ACETYLCYSTEINE 20% 200MG/ML 4 ML VIAL *FOR ORAL / INH USE ONLY NEB SCH (15:39)
[2023-12-25] MEDS: AMINO ACIDS 4.25%/D5W 1,000 ML IV SCH (16:33)
[2023-12-25] MEDS: ALBUTEROL SO4 0.083% IH SOL 2.5 MG/3 ML VIAL.NEB. NEB SCH (20:20)
[2023-12-25] MEDS: ATORVASTATIN CA 40 MG TABLET (FP) PO SCH (21:13)
[2023-12-25] MEDS: PRAMIPEXOLE DIHYDROCHLORIDE 0.5 MG TABLET PO SCH (21:13)
[2023-12-25] MEDS: EZETIMIBE 10 MG TABLET (FP) PO SCH (21:13)
[2023-12-25] MEDS: LIDOCAINE PATCH REMOVAL MC SCH (21:15)
[2023-12-25] MEDS ORDERED: CHLORHEXIDINE GLUCONATE 4% CLEANSER FOR DECOLONIZATION TP SCH (22:00)
[2023-12-26 07:30] LABS: CHLORIDE 103 mmol/L (98-107); SODIUM 145 mmol/L (136-145)
[2023-12-26 07:34] LABS: ALBUMIN 2.6 g/dl (3.4-5.0); BLOOD UREA NITROGEN 27.3 mg/dL (7-18); CALCIUM 8.6 mg/dL (8.5-10.1); CO2 34 mmol/L (21-32); GLUCOSE,RANDOM 165 mg/dL (74-106); MAGNESIUM 1.6 mg/dL (1.8-2.4)
[2023-12-26 07:38] LABS: SGOT/AST 12 U/L (15-37)
[2023-12-26 07:39] LABS: BILIRUBIN,TOTAL 0.7 mg/dL (0.2-1); TOT PROT 5.4 g/dl (6.4-8.2)
[2023-12-26 07:40] LABS: ALK PHOS 70 U/L (45-117)
[2023-12-26 07:41] LABS: SGPT/ALT 10 U/L (13-61)
[2023-12-26 07:45] LABS: ANION GAP 8 mmol/L (4-13); POTASSIUM 2.7 mmol/L (3.5-5.1)
[2023-12-26] MEDS: KCL 10 MEQ IVPB 10 MEQ/100 ML INFUS.BAG IVPB SCH ×2 (09:16→20:30)
[2023-12-26] MEDS: MAGNESIUM 2GM/50ML STERILE WATER IVPB IVPB ONE (16:53)
[2023-12-26] MEDS: POTASSIUM CHLORIDE ORAL LIQUID 20 MEQ/15 ML PO ONE ×2 (17:52→21:16)
[2023-12-26 18:15] LABS: CHLORIDE 101 mmol/L (98-107); SODIUM 142 mmol/L (136-145)
[2023-12-26 18:20] LABS: BLOOD UREA NITROGEN 25.6 mg/dL (7-18); CALCIUM 8.4 mg/dL (8.5-10.1); CO2 33 mmol/L (21-32); GLUCOSE,RANDOM 162 mg/dL (74-106)
[2023-12-26 18:24] LABS: CREATININE 0.9 mg/dL (0.55-1.3)
[2023-12-26 19:53] LABS: ANION GAP 8 mmol/L (4-13); POTASSIUM 2.9 mmol/L (3.5-5.1)
[2023-12-27] MEDS ORDERED: INSULIN ASPART SLIDING SCALE (NOVOLOG) 1 VIAL SQ ONE (06:30)
[2023-12-27 08:22] LABS: BASO % 0.5 % (0-2.0); EOS % 1.9 % (0-4.5); HEMATOCRIT 34.9 % (32.4-45.2); HEMOGLOBIN 10.5 GM/dL (10.7-15.3); LYMPH % 17.3 % (8-40); MCH 24.2 pg (25.7-33.7); MCHC 30.2 g/dl (32.0-36.0); MEAN PLT VOLUME 8.7 fl (7.5-11.1); MONO % 7.8 % (3.8-10.2); NEUT % 72.5 % (42.8-82.8); PLATELET COUNT 211 10^3/uL (134-434); RBC 4.36 M/mm3 (3.60-5.2); WHITE BLOOD COUNT 11.5 K/mm3 (4.0-10.0)
[2023-12-27 08:43] LABS: POTASSIUM 3.1 mmol/L (3.5-5.1)
[2023-12-27 08:48] LABS: ALBUMIN 2.5 g/dl (3.4-5.0); BLOOD UREA NITROGEN 26.2 mg/dL (7-18); CALCIUM 8.9 mg/dL (8.5-10.1)
[2023-12-27 08:51] LABS: CREATININE 0.9 mg/dL (0.55-1.3)
[2023-12-27 08:53] LABS: BILIRUBIN,TOTAL 0.7 mg/dL (0.2-1); TOT PROT 5.4 g/dl (6.4-8.2)
[2023-12-27 09:47] LABS: ANISOCYTOSIS 2+; MACROCYTOSIS 0
[2023-12-27] MEDS: KCL 10 MEQ IVPB 10 MEQ/100 ML INFUS.BAG IVPB SCH (10:02)
[2023-12-27] MEDS ORDERED: ACETYLCYSTEINE 20% 200MG/ML 30 ML VIAL *FOR ORAL / INH USE ONLY NEB SCH (12:00)
[2023-12-27] MEDS: POTASSIUM CHLORIDE ORAL LIQUID 20 MEQ/15 ML PO ONE (12:21)
[2023-12-27] MEDS: POTASSIUM CHLORIDE 10 MEQ in AMINO ACIDS 4.25%/D5W 1,000 ML IV SCH (13:53)
[2023-12-28] MEDS: MULTIVITAMINS (DAILY MVI) TABLET (FP) PO SCH (13:42)
[2023-12-28] MEDS: ASCORBIC ACID 250 MG TABLET (FP) PO SCH (13:42)
[2023-12-29 07:56] LABS: POTASSIUM 3.3 mmol/L (3.5-5.1)
[2023-12-29 08:01] LABS: ALBUMIN 2.7 g/dl (3.4-5.0); BLOOD UREA NITROGEN 26.7 mg/dL (7-18); CALCIUM 9.2 mg/dL (8.5-10.1)
[2023-12-29 08:06] LABS: BILIRUBIN,TOTAL 0.7 mg/dL (0.2-1); TOT PROT 5.6 g/dl (6.4-8.2)
[2023-12-29 08:13] LABS: EOS % 3.3 % (0-4.5); HEMATOCRIT 38.7 % (32.4-45.2); LYMPH % 28.5 % (8-40); MCH 24.2 pg (25.7-33.7); MCHC 30.9 g/dl (32.0-36.0); MEAN CELL VOLUME 78.4 fl (80-96); MEAN PLT VOLUME 9.4 fl (7.5-11.1); MONO % 9.6 % (3.8-10.2); NEUT % 57.6 % (42.8-82.8); PLATELET COUNT 190 10^3/uL (134-434); RBC 4.94 M/mm3 (3.60-5.2); RDW 21.7 % (11.6-15.6); WHITE BLOOD COUNT 7.6 K/mm3 (4.0-10.0)
[2023-12-29] MEDS: POLYETHYLENE GLYCOL (HEALTHYLAX) 3350 17 GM PACKET PO SCH (18:54)
[2023-12-29] MEDS: KCL 10 MEQ IVPB 10 MEQ/100 ML INFUS.BAG IVPB SCH (18:54)
[2023-12-30] MEDS: KCL 10 MEQ IVPB 10 MEQ/100 ML INFUS.BAG IVPB SCH (00:44)
[2023-12-30 07:25] LABS: POTASSIUM 3.7 mmol/L (3.5-5.1)
[2023-12-30 07:28] LABS: EOS % 2.7 % (0-4.5); HEMATOCRIT 37.9 % (32.4-45.2); HEMOGLOBIN 11.7 GM/dL (10.7-15.3); MCH 24.4 pg (25.7-33.7); MCHC 30.9 g/dl (32.0-36.0); MEAN CELL VOLUME 79.1 fl (80-96); MEAN PLT VOLUME 9.5 fl (7.5-11.1); MONO % 9.3 % (3.8-10.2); PLATELET COUNT 186 10^3/uL (134-434); RBC 4.79 M/mm3 (3.60-5.2); RDW 21.6 % (11.6-15.6); WHITE BLOOD COUNT 7.6 K/mm3 (4.0-10.0)
[2023-12-30 07:30] LABS: ALBUMIN 2.7 g/dl (3.4-5.0); BLOOD UREA NITROGEN 28.3 mg/dL (7-18); CALCIUM 9.4 mg/dL (8.5-10.1)
[2023-12-30 07:33] LABS: CREATININE 0.8 mg/dL (0.55-1.3)
[2023-12-30 07:34] LABS: BILIRUBIN,TOTAL 0.6 mg/dL (0.2-1); TOT PROT 5.5 g/dl (6.4-8.2)
[2023-12-30] MEDS: NITROFURANTOIN MONOHYD/M-CRYST 100 MG CAPSULE PO SCH (09:34)
[2023-12-30] MEDS: levETIRAcetam 500 MG TABLET (FP) PO ONE (12:34)
[2023-12-30] MEDS: levETIRAcetam 500 MG TABLET (FP) PO SCH (21:59)
[2023-12-30 23:48] VITALS: RESP 17
[2023-12-31 15:12] VITALS: BP 127/77; PULSE 75; TEMP 97.3
== END 2023-12-31 14:14 | DRG 698 ==
LOC: JER 03:40 → JERBED 05:42 → J4W 21:56 → JICU 12-23 19:41 → J4W 12-25 05:08
PROVIDERS: ADMIT Internal Medicine; ATTEND Internal Medicine
DX: T83.511A Infection and inflammatory reaction due to indwelling urethral catheter, initial encounter (principal); G93.41 Metabolic encephalopathy; I50.33 Acute on chronic diastolic (congestive) heart failure; A41.9 Sepsis, unspecified organism; I63.9 Cerebral infarction, unspecified; I13.0 Hypertensive heart and chronic kidney disease with heart failure and stage 1 through stage 4 chronic kidney disease, or unspecified chronic kidney disease; I24.89 Other forms of acute ischemic heart disease; I48.19 Other persistent atrial fibrillation; N17.9 Acute kidney failure, unspecified; N13.30 Unspecified hydronephrosis; G81.94 Hemiplegia, unspecified affecting left nondominant side; E46 Unspecified protein-calorie malnutrition; J98.11 Atelectasis; Y83.9 Surgical procedure, unspecified as the cause of abnormal reaction of the patient, or of later complication, without mention of misadventure at the time of the procedure; N39.0 Urinary tract infection, site not specified; E11.22 Type 2 diabetes mellitus with diabetic chronic kidney disease; N18.9 Chronic kidney disease, unspecified; E11.40 Type 2 diabetes mellitus with diabetic neuropathy, unspecified; D50.9 Iron deficiency anemia, unspecified; E78.2 Mixed hyperlipidemia; I25.119 Atherosclerotic heart disease of native coronary artery with unspecified angina pectoris; N31.9 Neuromuscular dysfunction of bladder, unspecified; E87.6 Hypokalemia; K21.9 Gastro-esophageal reflux disease without esophagitis; Z95.5 Presence of coronary angioplasty implant and graft
CPT/HCPCS: 0241U-QW; 36415; 70450-TC; 70496-TC; 70498-TC; 70551-TC; 71045-TC-FY; 72125-TC; 74176-TC; 74230-TC-FY; 76775-TC; 80048; 80053; 80061; 81003; 82140; 82550; 82962; 83036; 83605; 83735; 83880; 84100; 84443; 84484; 85025; 85610; 85730; 87077; 87086; 87186; 92611-GN; 93005; 93010; 94640; 95816; 97116-GP; 97162-GP; 99285-25; J0131; J1644

== ENCOUNTER 2024-02-21 19:39 | Inpatient (IN) | payer OTHER ==
[2024-02-21 21:11] LABS: VENOUS BASE EXCESS 7.2 mmol/L (-2-2); VENOUS O2 SATURATION 97.6 % (70-80); VENOUS PCO2 41.4 mmHg (38-52); VENOUS PH 7.494 (7.310-7.410)
[2024-02-21] MEDS: SODIUM CHLORIDE 0.9% 500 ML INFUS.BAG IV ONE (21:13)
[2024-02-21 21:14] LABS: EOS % 0.3 % (0-4.5); HEMATOCRIT 31.5 % (32.4-45.2); HEMOGLOBIN 10.1 GM/dL (10.7-15.3); LYMPH % 20.1 % (8-40); MCH 26.6 pg (25.7-33.7); MEAN CELL VOLUME 83.2 fl (80-96); MEAN PLT VOLUME 9.1 fl (7.5-11.1); MONO % 9.4 % (3.8-10.2); NEUT % 69.2 % (42.8-82.8); PLATELET COUNT 212 10^3/uL (134-434); RBC 3.79 M/mm3 (3.60-5.2); RDW 22.4 % (11.6-15.6); WHITE BLOOD COUNT 12.5 K/mm3 (4.0-10.0)
[2024-02-21 21:23] LABS: INR 1.87 (0.83-1.09); PROTHROMBIN TIME (PATIENT) 20.8 SEC (9.7-13.0)
[2024-02-21 21:37] LABS: ANISOCYTOSIS 3+; MACROCYTOSIS 0; OVALOCYTE 1+; TARGET CELLS 1+
[2024-02-21 21:46] LABS: CHLORIDE 94 mmol/L (98-107); SODIUM 134 mmol/L (136-145)
[2024-02-21 21:48] LABS: ALBUMIN 2.9 g/dl (3.4-5.0); BLOOD UREA NITROGEN 24.7 mg/dL (7-18); CALCIUM 8.7 mg/dL (8.5-10.1); CO2 32 mmol/L (21-32); GLUCOSE,RANDOM 163 mg/dL (74-106)
[2024-02-21 21:51] LABS: SGPT/ALT < 6 U/L (13-61)
[2024-02-21 21:52] LABS: SGOT/AST 10 U/L (15-37)
[2024-02-21 21:53] LABS: BILIRUBIN,TOTAL 1.2 mg/dL (0.2-1); TOT PROT 5.5 g/dl (6.4-8.2)
[2024-02-21 21:54] LABS: ALK PHOS 103 U/L (45-117)
[2024-02-21 22:00] LABS: ANION GAP 7 mmol/L (4-13); POTASSIUM 2.9 mmol/L (3.5-5.1)
[2024-02-21] MEDS ORDERED: KCL 10 MEQ IVPB 30 MEQ/300 ML INFUS.BAG IVPB ONE (22:27)
[2024-02-21] MEDS: KCL 10 MEQ IVPB 10 MEQ/100 ML INFUS.BAG IVPB SCH (22:34)
[2024-02-21 22:37] LABS: EPI CELLS 2 /uL (0-25.1); HYALINE CASTS 0 /uL (0-3.1); URINE APPEARANCE TURBID; URINE BILIRUBIN NEGATIVE (NEGATIVE); URINE COLOR DK YELLOW; URINE GLUCOSE (UA) NEGATIVE (NEGATIVE); URINE KETONE NEGATIVE (NEGATIVE); URINE LEUK ESTERASE 3+ (NEGATIVE); URINE NITRITE POSITIVE (NEGATIVE); URINE PROTEIN 2+ (NEGATIVE); URINE RBC 17430 /uL (0-23.9); URINE WBC 4589 /uL (0-25.8)
[2024-02-21] MEDS ORDERED: PIPERACILLIN/TAZOB 3.375 GM 3.375 GM/50 ML BAG IVPB ONE (23:06)
[2024-02-21] MEDS: PIPERACILLIN/TAZOB 3.375 GM 3.375 GM in DEXTROSE 5%-WATER - 50 ML IVPB ONE (23:20)
[2024-02-21] MEDS: LINEZOLID 600 MG PREMIX BAG 600 MG in PREMIX 300 IV ONE (23:48)
[2024-02-22] MEDS: INSULIN ASPART SLIDING SCALE (NOVOLOG) 1 VIAL SQ SCH (06:51)
[2024-02-22 08:35] LABS: BASO % 0.5 % (0-2.0); EOS % 0.9 % (0-4.5); HEMATOCRIT 29.7 % (32.4-45.2); HEMOGLOBIN 9.5 GM/dL (10.7-15.3); LYMPH % 20.6 % (8-40); MCH 26.9 pg (25.7-33.7); MCHC 32.2 g/dl (32.0-36.0); MEAN CELL VOLUME 83.6 fl (80-96); MEAN PLT VOLUME 9.4 fl (7.5-11.1); MONO % 11.6 % (3.8-10.2); NEUT % 66.4 % (42.8-82.8); PLATELET COUNT 172 10^3/uL (134-434); RBC 3.55 M/mm3 (3.60-5.2); RDW 22.7 % (11.6-15.6); WHITE BLOOD COUNT 9.4 K/mm3 (4.0-10.0)
[2024-02-22 08:41] LABS: INR 1.41 (0.83-1.09); PROTHROMBIN TIME (PATIENT) 16.1 SEC (9.7-13.0)
[2024-02-22 08:52] LABS: POTASSIUM 3.3 mmol/L (3.5-5.1)
[2024-02-22 08:57] LABS: BLOOD UREA NITROGEN 21.8 mg/dL (7-18); CALCIUM 7.7 mg/dL (8.5-10.1); MAGNESIUM 1.2 mg/dL (1.8-2.4)
[2024-02-22 09:00] LABS: CREATININE 0.7 mg/dL (0.55-1.3); PHOSPHOROUS 2.4 mg/dL (2.5-4.9)
[2024-02-22] MEDS ORDERED: DULoxetine HCL 30 MG CAPSULE.DR PO ONE (09:19)
[2024-02-22] MEDS ORDERED: levETIRAcetam 500 MG TABLET (FP) PO ONE (09:19)
[2024-02-22] MEDS ORDERED: PANTOPRAZOLE 20 MG TABLET PO ONE (09:19)
[2024-02-22] MEDS ORDERED: LOSARTAN POTASSIUM 25 MG TABLET ONE (09:19)
[2024-02-22] MEDS ORDERED: METOPROLOL TARTRATE 25 MG TABLET (FP) ONE (09:19)
[2024-02-22] MEDS ORDERED: APIXABAN 2.5 MG TABLET ONE (09:19)
[2024-02-22] MEDS ORDERED: LIDOCAINE 4% PATCH TP ONE (09:20)
[2024-02-22] MEDS ORDERED: PIPERACILLIN/TAZOB 2.25 GM 2.25 GM/50 ML BAG IVPB ONE ×2 (09:20→16:25)
[2024-02-22] MEDS ORDERED: FERROUS SO4 325 MG TABLET (FP) ONE (09:20)
[2024-02-22] MEDS: FERROUS SO4 325 MG TABLET (FP) PO SCH (09:47)
[2024-02-22] MEDS: APIXABAN 2.5 MG TABLET PO SCH (09:47)
[2024-02-22] MEDS: levETIRAcetam 250 MG TABLET PO SCH (09:47)
[2024-02-22] MEDS: LIDOCAINE 5% TOPICAL PATCH TP SCH (09:47)
[2024-02-22] MEDS: PIPERACILLIN/TAZOB 2.25 GM 2.25 GM in DEXTROSE 5%-WATER - 50 ML IVPB SCH ×2 (09:47→16:45)
[2024-02-22] MEDS: DULoxetine HCL 30 MG CAPSULE.DR PO SCH (09:47)
[2024-02-22] MEDS: METOPROLOL TARTRATE 25 MG TABLET (FP) PO SCH (09:47)
[2024-02-22] MEDS: LOSARTAN POTASSIUM 25 MG TABLET PO SCH (09:47)
[2024-02-22] MEDS: PANTOPRAZOLE 20 MG TABLET PO SCH (09:47)
[2024-02-22] MEDS: SOLIFENACIN SUCCINATE 5 MG TAB PO SCH (09:48)
[2024-02-22] MEDS ORDERED: LINEZOLID 600 MG PREMIX BAG 600 MG/300 ML BAG IVPB SCH (12:00)
[2024-02-22] MEDS ORDERED: LINEZOLID 600 MG PREMIX BAG 600 MG in PREMIX 300 IVPB SCH (12:00)
[2024-02-22] MEDS ORDERED: DAPTOMYCIN 350 MG in SODIUM CHLORIDE 50 ML IVPB SCH (12:00)
[2024-02-22] MEDS ORDERED: POTASSIUM CHLORIDE ORAL LIQUID 20 MEQ/15 ML ONE (16:36)
[2024-02-22] MEDS: POTASSIUM CHLORIDE ORAL LIQUID 20 MEQ/15 ML PO ONE (16:45)
[2024-02-22] MEDS: EZETIMIBE 10 MG TABLET (FP) PO SCH (21:15)
[2024-02-22] MEDS: ATORVASTATIN CA 40 MG TABLET (FP) PO SCH (21:15)
[2024-02-22] MEDS: PRAMIPEXOLE DIHYDROCHLORIDE 0.5 MG TABLET PO SCH (21:16)
[2024-02-22] MEDS: LIDOCAINE PATCH REMOVAL MC SCH (21:16)
[2024-02-22] MEDS: levETIRAcetam 500 MG TABLET (FP) PO SCH (21:16)
[2024-02-23 09:17] LABS: BASO % 0.7 % (0-2.0); EOS % 2.3 % (0-4.5); HEMATOCRIT 28.3 % (32.4-45.2); MCH 26.8 pg (25.7-33.7); MCHC 31.6 g/dl (32.0-36.0); MEAN CELL VOLUME 84.7 fl (80-96); MEAN PLT VOLUME 9.3 fl (7.5-11.1); MONO % 12.1 % (3.8-10.2); NEUT % 57.9 % (42.8-82.8); PLATELET COUNT 173 10^3/uL (134-434); RBC 3.35 M/mm3 (3.60-5.2); RDW 22.3 % (11.6-15.6); WHITE BLOOD COUNT 7.7 K/mm3 (4.0-10.0)
[2024-02-23 09:31] LABS: CHLORIDE 103 mmol/L (98-107); POTASSIUM 3.6 mmol/L (3.5-5.1); SODIUM 140 mmol/L (136-145)
[2024-02-23 09:33] LABS: ALBUMIN 2.4 g/dl (3.4-5.0); ANION GAP 6 mmol/L (4-13); CALCIUM 8.3 mg/dL (8.5-10.1); CO2 31 mmol/L (21-32); GLUCOSE,RANDOM 115 mg/dL (74-106); MAGNESIUM 1.2 mg/dL (1.8-2.4)
[2024-02-23 09:36] LABS: CREATININE 0.8 mg/dL (0.55-1.3); SGOT/AST 10 U/L (15-37)
[2024-02-23 09:37] LABS: PHOSPHOROUS 2.1 mg/dL (2.5-4.9)
[2024-02-23 09:38] LABS: TOT PROT 4.7 g/dl (6.4-8.2)
[2024-02-23 09:39] LABS: ALK PHOS 85 U/L (45-117)
[2024-02-23] MEDS ORDERED: MAGNESIUM SULF 50% (8.12 MEQ/2 ML-1 GM VIAL) IVPB ONE (10:00)
[2024-02-23 10:13] LABS: SGPT/ALT < 6 U/L (13-61)
[2024-02-23] MEDS: MAGNESIUM 2GM/50ML STERILE WATER IVPB IVPB ONE (11:51)
[2024-02-23] MEDS: LACTATED RINGERS SOLUTION 1,000 ML/1,000 ML INFUS.BAG IV SCH (18:37)
[2024-02-24] MEDS: MAGNESIUM SULF 50% (8.12 MEQ/2 ML-1 GM VIAL) IVPB ONE (17:07)
[2024-02-24] MEDS: NAPH,MB-DB/K PH,MBDB POWDER PACKET PO SCH (17:07)
[2024-02-24] MEDS: POTASSIUM CHLORIDE 10 MEQ in SODIUM CHLORIDE 0.45% 1,000 ML IVPB SCH (18:22)
[2024-02-25 08:44] LABS: HEMATOCRIT 28.4 % (32.4-45.2); HEMOGLOBIN 9.2 GM/dL (10.7-15.3); MCH 27.1 pg (25.7-33.7); MCHC 32.3 g/dl (32.0-36.0); MEAN CELL VOLUME 84.1 fl (80-96); MEAN PLT VOLUME 9.1 fl (7.5-11.1); PLATELET COUNT 188 10^3/uL (134-434); RBC 3.38 M/mm3 (3.60-5.2); RDW 21.3 % (11.6-15.6); WHITE BLOOD COUNT 7.1 K/mm3 (4.0-10.0)
[2024-02-25 08:55] LABS: CHLORIDE 106 mmol/L (98-107); POTASSIUM 3.7 mmol/L (3.5-5.1); SODIUM 142 mmol/L (136-145)
[2024-02-25 08:58] LABS: CALCIUM 8.7 mg/dL (8.5-10.1)
[2024-02-25 08:59] LABS: ALBUMIN 2.4 g/dl (3.4-5.0); ANION GAP 7 mmol/L (4-13); BLOOD UREA NITROGEN 18.2 mg/dL (7-18); CO2 29 mmol/L (21-32); GLUCOSE,RANDOM 122 mg/dL (74-106); MAGNESIUM 2.2 mg/dL (1.8-2.4)
[2024-02-25 09:02] LABS: CREATININE 0.7 mg/dL (0.55-1.3); SGOT/AST 8 U/L (15-37)
[2024-02-25 09:03] LABS: BILIRUBIN,TOTAL 0.7 mg/dL (0.2-1)
[2024-02-25 09:04] LABS: TOT PROT 4.8 g/dl (6.4-8.2)
[2024-02-25 09:05] LABS: ALK PHOS 79 U/L (45-117)
[2024-02-25 09:13] LABS: SGPT/ALT < 6 U/L (13-61)
[2024-02-25] MEDS ORDERED: OLANZapine 2.5 MG TABLET PO STA (18:05)
[2024-02-25] MEDS: OLANZapine 2.5 MG TABLET PO STA (20:50)
[2024-02-26] MEDS ORDERED: PROPOFOL 20 ML ONE (14:34)
[2024-02-26] MEDS: PRAMIPEXOLE DIHYDROCHLORIDE 0.5 MG TABLET PO SCH (21:07)
[2024-02-26] MEDS ORDERED: PIPERACILLIN/TAZOBACTAM 2.25 GM VIAL IVPB ONE (21:08)
[2024-02-26] MEDS: EZETIMIBE 10 MG TABLET (FP) PO SCH (21:08)
[2024-02-26] MEDS: APIXABAN 2.5 MG TABLET PO SCH (21:08)
[2024-02-26] MEDS: levETIRAcetam 500 MG TABLET (FP) PO SCH (21:08)
[2024-02-26] MEDS: METOPROLOL TARTRATE 25 MG TABLET (FP) PO SCH (21:08)
[2024-02-26] MEDS: ATORVASTATIN CA 40 MG TABLET (FP) PO SCH (21:09)
[2024-02-26] MEDS: PIPERACILLIN/TAZOB 2.25 GM 2.25 GM in DEXTROSE 5%-WATER - 50 ML IVPB SCH (21:10)
[2024-02-26] MEDS: LIDOCAINE PATCH REMOVAL MC SCH (22:42)
[2024-02-27] MEDS: LIDOCAINE 5% TOPICAL PATCH TP SCH (10:18)
[2024-02-27] MEDS: FERROUS SO4 325 MG TABLET (FP) PO SCH (10:20)
[2024-02-27] MEDS: levETIRAcetam 250 MG TABLET PO SCH (10:20)
[2024-02-27] MEDS: DULoxetine HCL 30 MG CAPSULE.DR PO SCH (10:20)
[2024-02-27] MEDS: LOSARTAN POTASSIUM 25 MG TABLET PO SCH (10:20)
[2024-02-27] MEDS: PANTOPRAZOLE 20 MG TABLET PO SCH (10:20)
[2024-02-27] MEDS: SOLIFENACIN SUCCINATE 5 MG TAB PO SCH (10:21)
[2024-02-27 10:46] LABS: HEMATOCRIT 27.5 % (32.4-45.2); HEMOGLOBIN 8.9 GM/dL (10.7-15.3); MCH 27.5 pg (25.7-33.7); MCHC 32.4 g/dl (32.0-36.0); MEAN CELL VOLUME 84.9 fl (80-96); PLATELET COUNT 196 10^3/uL (134-434); RBC 3.24 M/mm3 (3.60-5.2); RDW 21.1 % (11.6-15.6); WHITE BLOOD COUNT 7.8 K/mm3 (4.0-10.0)
[2024-02-27 11:07] LABS: POTASSIUM 3.4 mmol/L (3.5-5.1)
[2024-02-27 11:13] LABS: ALBUMIN 2.3 g/dl (3.4-5.0); BLOOD UREA NITROGEN 14.6 mg/dL (7-18); CALCIUM 8.3 mg/dL (8.5-10.1)
[2024-02-27 11:16] LABS: CREATININE 0.7 mg/dL (0.55-1.3)
[2024-02-27 11:18] LABS: BILIRUBIN,TOTAL 0.9 mg/dL (0.2-1); TOT PROT 4.6 g/dl (6.4-8.2)
[2024-02-27 15:24] VITALS: BMI 24.6
[2024-02-27] MEDS: KCL 10 MEQ IVPB 10 MEQ/100 ML INFUS.BAG IVPB SCH (18:11)
[2024-02-29 09:26] LABS: HEMATOCRIT 27.7 % (32.4-45.2); HEMOGLOBIN 8.8 GM/dL (10.7-15.3); MCH 27.5 pg (25.7-33.7); MCHC 31.8 g/dl (32.0-36.0); MEAN CELL VOLUME 86.6 fl (80-96); MEAN PLT VOLUME 8.9 fl (7.5-11.1); PLATELET COUNT 236 10^3/uL (134-434); RDW 20.4 % (11.6-15.6); WHITE BLOOD COUNT 8.4 K/mm3 (4.0-10.0)
[2024-02-29 11:31] LABS: POTASSIUM 3.4 mmol/L (3.5-5.1)
[2024-02-29 11:38] LABS: ALBUMIN 2.2 g/dl (3.4-5.0); CALCIUM 8.4 mg/dL (8.5-10.1); MAGNESIUM 1.5 mg/dL (1.8-2.4)
[2024-02-29 11:40] LABS: BLOOD UREA NITROGEN 13.9 mg/dL (7-18); CREATININE 0.8 mg/dL (0.55-1.3)
[2024-02-29 11:42] LABS: BILIRUBIN,TOTAL 0.6 mg/dL (0.2-1); TOT PROT 4.6 g/dl (6.4-8.2)
[2024-02-29] MEDS: POTASSIUM CHLORIDE ORAL LIQUID 20 MEQ/15 ML PO ONE (14:47)
[2024-03-01] MEDS: FLUTICASONE PROP 0.05% 16 GM NASAL SPRAY NS SCH (09:43)
[2024-03-01] MEDS: LORATADINE 10 MG TABLET PO SCH (09:44)
[2024-03-01] MEDS: MAGNESIUM OXIDE 400 MG TABLET (FP) PO ONE (14:41)
[2024-03-02 10:20] LABS: CHLORIDE 109 mmol/L (98-107); POTASSIUM 3.4 mmol/L (3.5-5.1); SODIUM 142 mmol/L (136-145)
[2024-03-02 10:24] LABS: ALBUMIN 2.2 g/dl (3.4-5.0); ANION GAP 5 mmol/L (4-13); BLOOD UREA NITROGEN 14.1 mg/dL (7-18); CALCIUM 8.4 mg/dL (8.5-10.1); CO2 28 mmol/L (21-32); GLUCOSE,RANDOM 189 mg/dL (74-106); MAGNESIUM 1.6 mg/dL (1.8-2.4)
[2024-03-02 10:27] LABS: CREATININE 0.8 mg/dL (0.55-1.3); SGOT/AST 5 U/L (15-37); SGPT/ALT < 6 U/L (13-61)
[2024-03-02 10:29] LABS: BILIRUBIN,TOTAL 0.7 mg/dL (0.2-1); TOT PROT 4.7 g/dl (6.4-8.2)
[2024-03-02 10:30] LABS: ALK PHOS 76 U/L (45-117)
[2024-03-02] MEDS: POTASSIUM CHLORIDE ORAL LIQUID 20 MEQ/15 ML PO ONE ×2 (16:43→17:27)
[2024-03-02] MEDS: POTASSIUM CHLORIDE TABS 20 MEQ TABLET.ER (FP) PO ONE (17:28)
[2024-03-03] MEDS: LORazepam 2 MG/ML SDV VIAL IVPUSH PRN (01:36)
[2024-03-03 09:20] LABS: HEMATOCRIT 28.7 % (32.4-45.2); HEMOGLOBIN 9.2 GM/dL (10.7-15.3); MCH 27.8 pg (25.7-33.7); MCHC 31.9 g/dl (32.0-36.0); MEAN CELL VOLUME 87.1 fl (80-96); MEAN PLT VOLUME 8.7 fl (7.5-11.1); PLATELET COUNT 237 10^3/uL (134-434); RDW 20.5 % (11.6-15.6); WHITE BLOOD COUNT 7.8 K/mm3 (4.0-10.0)
[2024-03-03 09:41] LABS: POTASSIUM 3.8 mmol/L (3.5-5.1)
[2024-03-03 09:47] LABS: BLOOD UREA NITROGEN 15.7 mg/dL (7-18)
[2024-03-03 09:48] LABS: MAGNESIUM 1.6 mg/dL (1.8-2.4)
[2024-03-03 09:49] LABS: CALCIUM 8.6 mg/dL (8.5-10.1)
[2024-03-03 09:51] LABS: CREATININE 0.7 mg/dL (0.55-1.3)
[2024-03-03 22:17] VITALS: RESP 18
[2024-03-04] MEDS ORDERED: LORazepam 2 MG/ML SDV VIAL IM PRN (07:33)
[2024-03-04] MEDS: NITROFURANTOIN MONOHYD/M-CRYST 100 MG CAPSULE PO SCH (09:21)
[2024-03-04 14:20] VITALS: BP 151/76; PULSE 71; TEMP 97.9
[2024-03-04] MEDS ORDERED: OLANZapine 2.5 MG TABLET PO SCH (22:00)
== END 2024-03-04 18:56 | DRG 659 ==
LOC: JER 19:39 → JERBED 23:53 → OBSVTOIN 02-22 01:57 → J8W 02-22 19:32
PROVIDERS: ADMIT Internal Medicine; ATTEND Family Medicine
PROC: 0TP98DZ Removal of Intraluminal Device from Ureter, Via Natural or Artificial Opening Endoscopic (ICD-10-PCS; 2024-02-26)
PROC: 0T9B80Z Drainage of Bladder with Drainage Device, Via Natural or Artificial Opening Endoscopic (ICD-10-PCS; 2024-02-26)
PROC: 0T788DZ Dilation of Bilateral Ureters with Intraluminal Device, Via Natural or Artificial Opening Endoscopic (ICD-10-PCS; principal; 2024-02-26 16:00)
PROC: BT14ZZZ Fluoroscopy of Kidneys, Ureters and Bladder (ICD-10-PCS; 2024-02-26 16:00)
DX: T83.511A Infection and inflammatory reaction due to indwelling urethral catheter, initial encounter (principal); E43 Unspecified severe protein-calorie malnutrition; I13.0 Hypertensive heart and chronic kidney disease with heart failure and stage 1 through stage 4 chronic kidney disease, or unspecified chronic kidney disease; I50.32 Chronic diastolic (congestive) heart failure; I48.19 Other persistent atrial fibrillation; N39.0 Urinary tract infection, site not specified; I25.10 Atherosclerotic heart disease of native coronary artery without angina pectoris; I10 Essential (primary) hypertension; N31.9 Neuromuscular dysfunction of bladder, unspecified; E83.42 Hypomagnesemia; E87.6 Hypokalemia; E86.0 Dehydration; D64.9 Anemia, unspecified; K21.9 Gastro-esophageal reflux disease without esophagitis; E78.5 Hyperlipidemia, unspecified; E11.22 Type 2 diabetes mellitus with diabetic chronic kidney disease; D21.9 Benign neoplasm of connective and other soft tissue, unspecified; N18.9 Chronic kidney disease, unspecified; G20.A1 Parkinson's disease without dyskinesia, without mention of fluctuations; B96.5 Pseudomonas (aeruginosa) (mallei) (pseudomallei) as the cause of diseases classified elsewhere; I69.398 Other sequelae of cerebral infarction; Y84.6 Urinary catheterization as the cause of abnormal reaction of the patient, or of later complication, without mention of misadventure at the time of the procedure; Y92.89 Other specified places as the place of occurrence of the external cause; Z68.25 Body mass index [BMI] 25.0-25.9, adult; Z96.651 Presence of right artificial knee joint; Z66 Do not resuscitate
CPT/HCPCS: 0241U-QW; 36415; 70450-TC; 71045-TC-FY; 74176-TC; 74230-TC-FY; 80048; 80053; 80177; 81003; 82607; 82746; 82803; 82962; 83605; 83735; 84100; 84443; 84484; 85025; 85027; 85610; 85730; 86850; 86900; 86901; 87040; 87081; 87086; 87186; 92611-GN; 93005; 93010; 93306-TC; 94760; 95816; 97116-GP; 99285-25; C2617; G0378

== ENCOUNTER 2024-06-26 19:39 | Inpatient (IN) | payer OTHER ==
[2024-06-26] MEDS: levETIRAcetam 500 MG/5 ML INJECTION VIAL IVPB ONE ×2 (19:40)
[2024-06-26] MEDS ORDERED: LORazepam 2 MG/ML SDV VIAL ONE ×2 (19:43→19:49)
[2024-06-26] MEDS ORDERED: levETIRAcetam 500 MG/5 ML INJECTION VIAL IVPB ONE (19:51)
[2024-06-26] MEDS ORDERED: KETAMINE HCL 200 MG/20 ML VIAL ONE (20:03)
[2024-06-26] MEDS ORDERED: PROPOFOL 1,000,000 MCG/100 ML VIAL ONE (20:05)
[2024-06-26] MEDS ORDERED: ROCURONIUM BROMIDE 50 MG/5 ML VIAL ONE (20:06)
[2024-06-26 20:17] LABS: BASO % 0.6 % (0-2.0); EOS % 3.7 % (0-4.5); HEMATOCRIT 30.4 % (32.4-45.2); HEMOGLOBIN 9.2 GM/dL (10.7-15.3); LYMPH % 39.4 % (8-40); MCH 27.2 pg (25.7-33.7); MCHC 30.3 g/dl (32.0-36.0); MEAN PLT VOLUME 8.4 fl (7.5-11.1); NEUT % 47.3 % (42.8-82.8); PLATELET COUNT 371 10^3/uL (134-434); RBC 3.37 M/mm3 (3.60-5.2); RDW 19.5 % (11.6-15.6); WHITE BLOOD COUNT 12.3 K/mm3 (4.0-10.0)
[2024-06-26 20:22] LABS: VENOUS BASE EXCESS 1.2 mmol/L (-2-2); VENOUS O2 SATURATION 45.7 % (70-80); VENOUS PCO2 53.2 mmHg (38-52); VENOUS PH 7.333 (7.310-7.410)
[2024-06-26 20:23] VITALS: BMI 21.2
[2024-06-26 20:38] LABS: CHLORIDE 107 mmol/L (98-107); POTASSIUM 4.7 mmol/L (3.5-5.1); SODIUM 141 mmol/L (136-145)
[2024-06-26 20:40] LABS: ANION GAP 7 mmol/L (4-13); CALCIUM 8.9 mg/dL (8.5-10.1); CO2 28 mmol/L (21-32); GLUCOSE,RANDOM 124 mg/dL (74-106)
[2024-06-26 20:41] LABS: ALBUMIN 2.7 g/dl (3.4-5.0); BLOOD UREA NITROGEN 16.8 mg/dL (7-18)
[2024-06-26 20:44] LABS: CREATININE 0.6 mg/dL (0.55-1.3); SGOT/AST 12 U/L (15-37); SGPT/ALT < 6 U/L (13-61)
[2024-06-26 20:45] LABS: BILIRUBIN,TOTAL 0.3 mg/dL (0.2-1); TOT PROT 5.5 g/dl (6.4-8.2)
[2024-06-26 20:46] LABS: ALK PHOS 80 U/L (45-117)
[2024-06-26] MEDS ORDERED: CEFEPIME HCL/D5W 2 GM/50 ML BAG IVPB ONE (21:15)
[2024-06-26] MEDS ORDERED: VANCOMYCIN 1 GM PREMIX (F) 1 GM/200 ML BAG ONE (21:15)
[2024-06-26 21:29] LABS: INR 1.43 (0.83-1.09); PROTHROMBIN TIME (PATIENT) 15.6 SEC (9.7-13.0)
[2024-06-26 21:32] LABS: ACTIVATED PTT 34.2 SECONDS (25.2-36.5)
[2024-06-26] MEDS: CEFEPIME HCL 2 GM VIAL (RESTRICTED TO ID) IVPB ONE (21:46)
[2024-06-26] MEDS: PROPOFOL 200 MG/20 ML VIAL IVPUSH ONE (21:47)
[2024-06-26] MEDS: SODIUM CHLORIDE 500 ML IV STA (21:49)
[2024-06-26 21:52] LABS: URINE APPEARANCE TURBID; URINE COLOR RED; URINE GLUCOSE (UA) NEGATIVE (NEGATIVE); URINE KETONE NEGATIVE (NEGATIVE); URINE UROBILINOGEN 0.2 mg/dL (0.2-1.0)
[2024-06-26 21:56] LABS: URINE BILIRUBIN MODERATE (NEGATIVE); URINE PROTEIN 100 (NEGATIVE)
[2024-06-26 21:57] LABS: URINE LEUK ESTERASE LARGE (NEGATIVE); URINE NITRITE POSITIVE (NEGATIVE)
[2024-06-27] MEDS: ROCURONIUM BROMIDE 50 MG/5 ML VIAL IV ONE (00:03)
[2024-06-27] MEDS: VANCOMYCIN 1,000 MG in DEXTROSE 5%-WATER - 250 ML IVPB ONE (07:55)
[2024-06-27] MEDS: DEXTROSE 5%-NORMAL SALINE 1,000 ML IV SCH (12:15)
[2024-06-27] MEDS: MEROPENEM-0.9% SODIUM CHLORIDE 1 GM/50 ML BAG IVPB SCH (13:09)
[2024-06-27] MEDS: levETIRAcetam 500 MG/5 ML INJECTION VIAL IVPB SCH (22:28)
[2024-06-27] MEDS: ACETAMINOPHEN 1000 MG/100 ML BAG IVPB ONE (23:34)
[2024-06-28] MEDS: MELATONIN 5 MG TABLETS PO ONE (08:18)
[2024-06-28] MEDS: ACETAMINOPHEN 1000 MG/100 ML BAG IVPB PRN (12:51)
[2024-06-28] MEDS: LIDOCAINE 4% PATCH TP SCH (21:26)
[2024-06-28] MEDS ORDERED: MELATONIN 5 MG TABLETS PO PRN (21:28)
[2024-06-29 08:42] LABS: HEMATOCRIT 27.2 % (32.4-45.2); HEMOGLOBIN 8.3 GM/dL (10.7-15.3); MCH 27.8 pg (25.7-33.7); MCHC 30.4 g/dl (32.0-36.0); MEAN CELL VOLUME 91.4 fl (80-96); MEAN PLT VOLUME 8.4 fl (7.5-11.1); PLATELET COUNT 302 10^3/uL (134-434); RBC 2.98 M/mm3 (3.60-5.2); RDW 19.4 % (11.6-15.6); WHITE BLOOD COUNT 13.6 K/mm3 (4.0-10.0)
[2024-06-29 08:53] LABS: POTASSIUM 3.4 mmol/L (3.5-5.1)
[2024-06-29 08:57] LABS: CALCIUM 8.7 mg/dL (8.5-10.1)
[2024-06-29 08:58] LABS: ALBUMIN 2.2 g/dl (3.4-5.0); BLOOD UREA NITROGEN 12.4 mg/dL (7-18); MAGNESIUM 1.3 mg/dL (1.8-2.4)
[2024-06-29 09:01] LABS: CREATININE 0.4 mg/dL (0.55-1.3)
[2024-06-29 09:03] LABS: BILIRUBIN,TOTAL 0.4 mg/dL (0.2-1); TOT PROT 4.7 g/dl (6.4-8.2)
[2024-06-29] MEDS: METOPROLOL TARTRATE 25 MG TABLET (FP) PO SCH (09:46)
[2024-06-29] MEDS: APIXABAN 2.5 MG TABLET PO SCH (09:46)
[2024-06-29] MEDS: CARBIDOPA/LEVODOPA 25/100 TABLET (FP) PO SCH (09:47)
[2024-06-29] MEDS: LOSARTAN POTASSIUM 25 MG TABLET PO SCH (09:47)
[2024-06-29] MEDS: PANTOPRAZOLE 20 MG TABLET PO SCH (09:48)
[2024-06-29] MEDS: DULoxetine HCL 30 MG CAPSULE.DR PO SCH (10:07)
[2024-06-29] MEDS: levETIRAcetam 500 MG TABLET (FP) PO SCH (10:07)
[2024-06-29] MEDS: LIDOCAINE PATCH REMOVAL MC SCH (10:16)
[2024-06-29] MEDS: POTASSIUM CHLORIDE ORAL LIQUID 20 MEQ/15 ML PO ONE (13:15)
[2024-06-29] MEDS: E IVPB ONE (13:18)
[2024-06-29] MEDS: PIPERACILLIN/TAZOB 3.375 GM 3.375 GM in DEXTROSE 5%-WATER - 50 ML IVPB SCH (19:39)
[2024-06-29] MEDS: ATORVASTATIN CA 40 MG TABLET (FP) PO SCH (21:32)
[2024-06-30 07:49] LABS: CHLORIDE 111 mmol/L (98-107); POTASSIUM 3.9 mmol/L (3.5-5.1); SODIUM 143 mmol/L (136-145)
[2024-06-30 07:53] LABS: ALBUMIN 2.2 g/dl (3.4-5.0); ANION GAP 2 mmol/L (4-13); BLOOD UREA NITROGEN 12.2 mg/dL (7-18); CALCIUM 8.7 mg/dL (8.5-10.1); CO2 30 mmol/L (21-32); GLUCOSE,RANDOM 115 mg/dL (74-106); MAGNESIUM 1.8 mg/dL (1.8-2.4)
[2024-06-30 07:56] LABS: CREATININE 0.5 mg/dL (0.55-1.3); SGOT/AST 6 U/L (15-37); SGPT/ALT < 6 U/L (13-61)
[2024-06-30 07:58] LABS: BILIRUBIN,TOTAL 0.5 mg/dL (0.2-1); TOT PROT 4.8 g/dl (6.4-8.2)
[2024-06-30 07:59] LABS: ALK PHOS 78 U/L (45-117)
[2024-06-30] MEDS: MULTIVITAMINS (DAILY MVI) TABLET (FP) PO SCH (16:09)
[2024-06-30] MEDS: AMINO ACIDS/PROTEIN HYDROLYS 30 ML LIQUID.PKT PO SCH (18:51)
[2024-06-30] MEDS: ASCORBIC ACID 500 MG TABLET (FP) PO SCH (21:57)
[2024-07-01 08:35] LABS: CHLORIDE 109 mmol/L (98-107); POTASSIUM 3.6 mmol/L (3.5-5.1); SODIUM 143 mmol/L (136-145)
[2024-07-01 08:37] LABS: CALCIUM 8.5 mg/dL (8.5-10.1)
[2024-07-01 08:38] LABS: ALBUMIN 2.1 g/dl (3.4-5.0); ANION GAP 4 mmol/L (4-13); BLOOD UREA NITROGEN 14.4 mg/dL (7-18); CO2 30 mmol/L (21-32); GLUCOSE,RANDOM 118 mg/dL (74-106)
[2024-07-01 08:41] LABS: CREATININE 0.5 mg/dL (0.55-1.3); SGOT/AST 3 U/L (15-37); SGPT/ALT < 6 U/L (13-61)
[2024-07-01 08:42] LABS: BILIRUBIN,TOTAL 0.3 mg/dL (0.2-1)
[2024-07-01 08:43] LABS: BASO % 1.2 % (0-2.0); EOS % 4.5 % (0-4.5); HEMATOCRIT 25.5 % (32.4-45.2); HEMOGLOBIN 7.8 GM/dL (10.7-15.3); LYMPH % 29.7 % (8-40); MCH 27.4 pg (25.7-33.7); MCHC 30.4 g/dl (32.0-36.0); MEAN PLT VOLUME 8.1 fl (7.5-11.1); MONO % 9.3 % (3.8-10.2); NEUT % 55.3 % (42.8-82.8); PLATELET COUNT 274 10^3/uL (134-434); RBC 2.83 M/mm3 (3.60-5.2); RDW 18.6 % (11.6-15.6); TOT PROT 4.3 g/dl (6.4-8.2); WHITE BLOOD COUNT 8.5 K/mm3 (4.0-10.0)
[2024-07-01 08:44] LABS: ALK PHOS 65 U/L (45-117)
[2024-07-01] MEDS: IRON SUCROSE INJECTION 200 MG in SODIUM CHLORIDE 100 ML IVPB ONE (13:04)
[2024-07-01] MEDS: LIDOCAINE 5% TOPICAL PATCH TP SCH (22:15)
[2024-07-01] MEDS: ACETAMINOPHEN 1000 MG/100 ML BAG IVPB ONE (22:16)
[2024-07-02 09:49] LABS: BASO % 0.5 % (0-2.0); EOS % 5.4 % (0-4.5); HEMATOCRIT 27.9 % (32.4-45.2); HEMOGLOBIN 8.6 GM/dL (10.7-15.3); LYMPH % 30.6 % (8-40); MCH 27.7 pg (25.7-33.7); MCHC 30.7 g/dl (32.0-36.0); MEAN PLT VOLUME 7.9 fl (7.5-11.1); MONO % 10.1 % (3.8-10.2); NEUT % 53.4 % (42.8-82.8); PLATELET COUNT 278 10^3/uL (134-434); RBC 3.09 M/mm3 (3.60-5.2); RDW 18.8 % (11.6-15.6); WHITE BLOOD COUNT 8.4 K/mm3 (4.0-10.0)
[2024-07-02 10:18] LABS: CHLORIDE 109 mmol/L (98-107); POTASSIUM 4.2 mmol/L (3.5-5.1); SODIUM 142 mmol/L (136-145)
[2024-07-02 10:20] LABS: CALCIUM 8.8 mg/dL (8.5-10.1)
[2024-07-02 10:21] LABS: ALBUMIN 2.2 g/dl (3.4-5.0); ANION GAP 3 mmol/L (4-13); CO2 30 mmol/L (21-32); GLUCOSE,RANDOM 108 mg/dL (74-106)
[2024-07-02 10:24] LABS: CREATININE 0.6 mg/dL (0.55-1.3); SGOT/AST 7 U/L (15-37); SGPT/ALT < 6 U/L (13-61)
[2024-07-02 10:25] LABS: BILIRUBIN,TOTAL 0.3 mg/dL (0.2-1); TOT PROT 4.7 g/dl (6.4-8.2)
[2024-07-02 10:27] LABS: ALK PHOS 67 U/L (45-117)
[2024-07-02 17:50] LABS: N-TERMINAL BNP 6888.5 pg/ml (5-450)
[2024-07-02] MEDS: ACETAMINOPHEN 1000 MG/100 ML BAG IVPB PRN (23:52)
[2024-07-03] MEDS: FUROSEMIDE 40 MG/4 ML INJECTABLE VIAL IVPUSH ONE (09:51)
[2024-07-03] MEDS: OLANZapine 2.5 MG TABLET PO SCH (21:03)
[2024-07-03] MEDS: MELATONIN 5 MG TABLETS PO PRN (21:03)
[2024-07-03] MEDS ORDERED: QUEtiapine FUMARATE 25 MG TABLET PO SCH (22:00)
[2024-07-04 09:35] LABS: BASO % 1.2 % (0-2.0); EOS % 2.9 % (0-4.5); HEMATOCRIT 26.1 % (32.4-45.2); HEMOGLOBIN 7.9 GM/dL (10.7-15.3); LYMPH % 35.9 % (8-40); MCH 27.3 pg (25.7-33.7); MCHC 30.4 g/dl (32.0-36.0); MEAN CELL VOLUME 89.9 fl (80-96); MEAN PLT VOLUME 8.3 fl (7.5-11.1); MONO % 8.9 % (3.8-10.2); NEUT % 51.1 % (42.8-82.8); PLATELET COUNT 274 10^3/uL (134-434); RDW 18.7 % (11.6-15.6); WHITE BLOOD COUNT 9.4 K/mm3 (4.0-10.0)
[2024-07-04 09:50] LABS: CHLORIDE 104 mmol/L (98-107); POTASSIUM 3.8 mmol/L (3.5-5.1); SODIUM 142 mmol/L (136-145)
[2024-07-04 10:02] LABS: ALBUMIN 2.2 g/dl (3.4-5.0); ANION GAP 5 mmol/L (4-13); BLOOD UREA NITROGEN 17.3 mg/dL (7-18); CALCIUM 8.8 mg/dL (8.5-10.1); CO2 34 mmol/L (21-32); GLUCOSE,RANDOM 120 mg/dL (74-106)
[2024-07-04 10:04] LABS: SGOT/AST 5 U/L (15-37); SGPT/ALT < 6 U/L (13-61)
[2024-07-04 10:05] LABS: BILIRUBIN,TOTAL 0.5 mg/dL (0.2-1); CREATININE 0.6 mg/dL (0.55-1.3); TOT PROT 4.6 g/dl (6.4-8.2)
[2024-07-04 10:09] LABS: ALK PHOS 63 U/L (45-117)
[2024-07-04] MEDS: FUROSEMIDE 20 MG TABLET (FP) PO SCH (10:09)
[2024-07-04 13:06] LABS: TOTAL IRON BINDING CAPACITY 115 ug/dL (250-450)
[2024-07-04 13:07] LABS: IRON SERUM 38 ug/dL (50-175)
[2024-07-04] MEDS: ACETAMINOPHEN 1000 MG/100 ML BAG IVPB PRN (17:36)
[2024-07-05] MEDS: SODIUM CHLORIDE 500 ML IV SCH (13:21)
[2024-07-06 08:00] LABS: BASO % 0.4 % (0-2.0); EOS % 4.1 % (0-4.5); HEMATOCRIT 27.1 % (32.4-45.2); HEMOGLOBIN 8.4 GM/dL (10.7-15.3); LYMPH % 32.4 % (8-40); MCH 27.8 pg (25.7-33.7); MCHC 31.1 g/dl (32.0-36.0); MEAN CELL VOLUME 89.3 fl (80-96); MEAN PLT VOLUME 8.4 fl (7.5-11.1); MONO % 9.5 % (3.8-10.2); NEUT % 53.6 % (42.8-82.8); PLATELET COUNT 287 10^3/uL (134-434); RBC 3.03 M/mm3 (3.60-5.2); RDW 18.6 % (11.6-15.6); WHITE BLOOD COUNT 9.9 K/mm3 (4.0-10.0)
[2024-07-06 08:18] LABS: CHLORIDE 107 mmol/L (98-107); SODIUM 146 mmol/L (136-145)
[2024-07-06 08:19] LABS: CALCIUM 8.9 mg/dL (8.5-10.1)
[2024-07-06 08:20] LABS: ALBUMIN 2.3 g/dl (3.4-5.0); ANION GAP 3 mmol/L (4-13); BLOOD UREA NITROGEN 21.4 mg/dL (7-18); CO2 35 mmol/L (21-32); GLUCOSE,RANDOM 126 mg/dL (74-106)
[2024-07-06 08:23] LABS: CREATININE 0.7 mg/dL (0.55-1.3); SGOT/AST 8 U/L (15-37)
[2024-07-06 08:24] LABS: BILIRUBIN,TOTAL 0.3 mg/dL (0.2-1); TOT PROT 4.7 g/dl (6.4-8.2)
[2024-07-06 08:26] LABS: ALK PHOS 62 U/L (45-117)
[2024-07-06 08:39] LABS: SGPT/ALT < 6 U/L (13-61)
[2024-07-06] MEDS: FUROSEMIDE 40 MG/4 ML INJECTABLE VIAL IVPUSH ONE (10:11)
[2024-07-07] MEDS: SODIUM CHLORIDE 500 ML IV SCH (04:46)
[2024-07-07 07:52] LABS: BASO % 0.8 % (0-2.0); EOS % 2.3 % (0-4.5); HEMATOCRIT 28.5 % (32.4-45.2); LYMPH % 38.1 % (8-40); MCHC 31.4 g/dl (32.0-36.0); MEAN CELL VOLUME 89.1 fl (80-96); MEAN PLT VOLUME 8.8 fl (7.5-11.1); MONO % 8.6 % (3.8-10.2); NEUT % 50.2 % (42.8-82.8); PLATELET COUNT 257 10^3/uL (134-434); RDW 17.9 % (11.6-15.6); WHITE BLOOD COUNT 11.7 K/mm3 (4.0-10.0)
[2024-07-07 08:20] LABS: CHLORIDE 106 mmol/L (98-107); POTASSIUM 3.9 mmol/L (3.5-5.1); SODIUM 144 mmol/L (136-145)
[2024-07-07 08:27] LABS: ALBUMIN 2.2 g/dl (3.4-5.0); ANION GAP 3 mmol/L (4-13); BLOOD UREA NITROGEN 23.3 mg/dL (7-18); CALCIUM 8.5 mg/dL (8.5-10.1); CO2 35 mmol/L (21-32); GLUCOSE,RANDOM 113 mg/dL (74-106)
[2024-07-07 08:30] LABS: CREATININE 0.7 mg/dL (0.55-1.3); SGOT/AST 8 U/L (15-37); SGPT/ALT < 6 U/L (13-61)
[2024-07-07 08:31] LABS: TOT PROT 4.6 g/dl (6.4-8.2)
[2024-07-07 08:33] LABS: BILIRUBIN,TOTAL 0.4 mg/dL (0.2-1)
[2024-07-07 08:34] LABS: ALK PHOS 56 U/L (45-117)
[2024-07-07] MEDS: FOLIC ACID 1 MG TABLET (FP) PO SCH (10:52)
[2024-07-07] MEDS: FERROUS SO4 325 MG TABLET (FP) PO SCH (11:58)
[2024-07-07] MEDS ORDERED: ATORVASTATIN CA 20 MG TABLET (FP) ONE (20:40)
[2024-07-07] MEDS: ACETAMINOPHEN 1000 MG/100 ML BAG IVPB ONE (21:02)
[2024-07-08] MEDS ORDERED: MIDAZOLAM HCL 2 MG/2 ML SINGLE DOSE VIAL ONE (07:46)
[2024-07-08] MEDS ORDERED: PROPOFOL 20 ML ONE (07:55)
[2024-07-08 08:30] LABS: HEMATOCRIT 26.4 % (32.4-45.2); HEMOGLOBIN 8.3 GM/dL (10.7-15.3); MCH 28.3 pg (25.7-33.7); MCHC 31.6 g/dl (32.0-36.0); MEAN CELL VOLUME 89.8 fl (80-96); PLATELET COUNT 222 10^3/uL (134-434); RBC 2.94 M/mm3 (3.60-5.2); RDW 17.7 % (11.6-15.6); WHITE BLOOD COUNT 9.8 K/mm3 (4.0-10.0)
[2024-07-08 08:47] LABS: CHLORIDE 104 mmol/L (98-107); POTASSIUM 3.9 mmol/L (3.5-5.1); SODIUM 144 mmol/L (136-145)
[2024-07-08 09:00] LABS: ANION GAP 5 mmol/L (4-13); BLOOD UREA NITROGEN 34.7 mg/dL (7-18); CALCIUM 8.5 mg/dL (8.5-10.1); CO2 34 mmol/L (21-32)
[2024-07-08 09:01] LABS: GLUCOSE,RANDOM 104 mg/dL (74-106)
[2024-07-08 09:04] LABS: CREATININE 0.7 mg/dL (0.55-1.3); SGOT/AST 5 U/L (15-37)
[2024-07-08 09:05] LABS: BILIRUBIN,TOTAL 0.3 mg/dL (0.2-1); TOT PROT 4.1 g/dl (6.4-8.2)
[2024-07-08 09:06] LABS: ALK PHOS 50 U/L (45-117)
[2024-07-08 09:15] LABS: SGPT/ALT < 6 U/L (13-61)
[2024-07-08] MEDS: PANTOPRAZOLE 20 MG TABLET PO SCH (10:33)
[2024-07-08] MEDS: FOLIC ACID 1 MG TABLET (FP) PO SCH (10:33)
[2024-07-08] MEDS: APIXABAN 2.5 MG TABLET PO SCH (10:34)
[2024-07-08] MEDS: MULTIVITAMINS (DAILY MVI) TABLET (FP) PO SCH (10:34)
[2024-07-08] MEDS: PIPERACILLIN/TAZOB 3.375 GM 3.375 GM in DEXTROSE 5%-WATER - 50 ML IVPB SCH (10:34)
[2024-07-08] MEDS: CARBIDOPA/LEVODOPA 25/100 TABLET (FP) PO SCH (10:34)
[2024-07-08] MEDS: METOPROLOL TARTRATE 25 MG TABLET (FP) PO SCH (10:34)
[2024-07-08] MEDS: ASCORBIC ACID 500 MG TABLET (FP) PO SCH (10:34)
[2024-07-08] MEDS: DULoxetine HCL 30 MG CAPSULE.DR PO SCH (10:34)
[2024-07-08] MEDS: LIDOCAINE PATCH REMOVAL MC SCH (10:46)
[2024-07-08] MEDS: levETIRAcetam 500 MG TABLET (FP) PO SCH (11:08)
[2024-07-08] MEDS: LOSARTAN POTASSIUM 25 MG TABLET PO SCH (11:08)
[2024-07-08] MEDS: FUROSEMIDE 20 MG TABLET (FP) PO SCH (11:08)
[2024-07-08] MEDS: AMINO ACIDS/PROTEIN HYDROLYS 30 ML LIQUID.PKT PO SCH (13:29)
[2024-07-08] MEDS: FERROUS SO4 325 MG TABLET (FP) PO SCH (15:24)
[2024-07-08] MEDS: FUROSEMIDE 40 MG/4 ML INJECTABLE VIAL IVPUSH ONE (18:30)
[2024-07-08] MEDS: OLANZapine 2.5 MG TABLET PO SCH (21:15)
[2024-07-08] MEDS: LIDOCAINE 5% TOPICAL PATCH TP SCH (21:15)
[2024-07-08] MEDS: ATORVASTATIN CA 40 MG TABLET (FP) PO SCH (21:15)
[2024-07-08] MEDS ORDERED: LIDOCAINE PATCH REMOVAL MC SCH (22:00)
[2024-07-09 08:20] LABS: HEMATOCRIT 37.2 % (32.4-45.2); HEMOGLOBIN 11.8 GM/dL (10.7-15.3); MCHC 31.6 g/dl (32.0-36.0); MEAN CELL VOLUME 88.8 fl (80-96); MEAN PLT VOLUME 8.8 fl (7.5-11.1); PLATELET COUNT 257 10^3/uL (134-434); RBC 4.19 M/mm3 (3.60-5.2); RDW 17.8 % (11.6-15.6); WHITE BLOOD COUNT 12.1 K/mm3 (4.0-10.0)
[2024-07-09 08:41] LABS: CHLORIDE 100 mmol/L (98-107); POTASSIUM 3.6 mmol/L (3.5-5.1); SODIUM 142 mmol/L (136-145)
[2024-07-09 08:45] LABS: ALBUMIN 2.4 g/dl (3.4-5.0); ANION GAP 4 mmol/L (4-13); BLOOD UREA NITROGEN 38.1 mg/dL (7-18); CO2 38 mmol/L (21-32); GLUCOSE,RANDOM 119 mg/dL (74-106)
[2024-07-09 08:47] LABS: CALCIUM 9.4 mg/dL (8.5-10.1)
[2024-07-09 08:48] LABS: CREATININE 0.7 mg/dL (0.55-1.3); SGOT/AST 7 U/L (15-37); SGPT/ALT < 6 U/L (13-61)
[2024-07-09 08:50] LABS: BILIRUBIN,TOTAL 0.9 mg/dL (0.2-1)
[2024-07-09 08:51] LABS: ALK PHOS 64 U/L (45-117)
[2024-07-09] MEDS: POTASSIUM CHLORIDE TABS 10 MEQ TABLET.ER (FP) PO SCH (11:04)
[2024-07-10 07:27] LABS: BASO % 0.8 % (0-2.0); EOS % 3.6 % (0-4.5); HEMATOCRIT 35.4 % (32.4-45.2); HEMOGLOBIN 11.3 GM/dL (10.7-15.3); MCH 28.1 pg (25.7-33.7); MCHC 31.8 g/dl (32.0-36.0); MEAN CELL VOLUME 88.2 fl (80-96); MEAN PLT VOLUME 9.3 fl (7.5-11.1); MONO % 9.7 % (3.8-10.2); NEUT % 46.9 % (42.8-82.8); PLATELET COUNT 249 10^3/uL (134-434); RBC 4.01 M/mm3 (3.60-5.2); RDW 18.4 % (11.6-15.6); WHITE BLOOD COUNT 11.1 K/mm3 (4.0-10.0)
[2024-07-10 08:01] LABS: POTASSIUM 3.5 mmol/L (3.5-5.1)
[2024-07-10 08:04] LABS: CALCIUM 9.2 mg/dL (8.5-10.1)
[2024-07-10 08:08] LABS: CREATININE 0.8 mg/dL (0.55-1.3)
[2024-07-11 12:20] LABS: RBC 3.89 M/mm3 (3.60-5.2); WHITE BLOOD COUNT 8.5 K/mm3 (4.0-10.0)
[2024-07-11 12:21] LABS: BASO % 1.2 % (0-2.0); EOS % 3.6 % (0-4.5); HEMATOCRIT 34.5 % (32.4-45.2); LYMPH % 42.9 % (8-40); MCH 28.4 pg (25.7-33.7); MEAN CELL VOLUME 88.5 fl (80-96); MEAN PLT VOLUME 9.3 fl (7.5-11.1); MONO % 10.4 % (3.8-10.2); NEUT % 41.9 % (42.8-82.8); PLATELET COUNT 214 10^3/uL (134-434); RDW 18.1 % (11.6-15.6)
[2024-07-11 12:43] LABS: CHLORIDE 100 mmol/L (98-107); POTASSIUM 3.3 mmol/L (3.5-5.1); SODIUM 142 mmol/L (136-145)
[2024-07-11 12:47] LABS: ALBUMIN 2.3 g/dl (3.4-5.0); ANION GAP 5 mmol/L (4-13); BLOOD UREA NITROGEN 32.9 mg/dL (7-18); CALCIUM 8.8 mg/dL (8.5-10.1); CO2 38 mmol/L (21-32); GLUCOSE,RANDOM 131 mg/dL (74-106)
[2024-07-11 12:49] LABS: CREATININE 0.7 mg/dL (0.55-1.3); SGOT/AST 8 U/L (15-37)
[2024-07-11 12:51] LABS: BILIRUBIN,TOTAL 0.4 mg/dL (0.2-1); TOT PROT 4.9 g/dl (6.4-8.2)
[2024-07-11 12:52] LABS: ALK PHOS 57 U/L (45-117)
[2024-07-11 12:55] LABS: SGPT/ALT < 6 U/L (13-61)
[2024-07-11] MEDS: D5-1/2NS+30 MEQ KCL - 30 MEQ/1,000 ML INFUS.BAG IV SCH (14:26)
[2024-07-12 08:19] LABS: BASO % 0.7 % (0-2.0); HEMATOCRIT 34.5 % (32.4-45.2); LYMPH % 31.8 % (8-40); MCH 28.6 pg (25.7-33.7); MCHC 31.8 g/dl (32.0-36.0); MEAN PLT VOLUME 9.4 fl (7.5-11.1); MONO % 12.2 % (3.8-10.2); NEUT % 52.3 % (42.8-82.8); PLATELET COUNT 217 10^3/uL (134-434); RBC 3.84 M/mm3 (3.60-5.2); WHITE BLOOD COUNT 9.2 K/mm3 (4.0-10.0)
[2024-07-12 08:44] LABS: CHLORIDE 100 mmol/L (98-107); POTASSIUM 3.7 mmol/L (3.5-5.1); SODIUM 142 mmol/L (136-145)
[2024-07-12 08:52] LABS: CALCIUM 8.9 mg/dL (8.5-10.1)
[2024-07-12 08:53] LABS: ALBUMIN 2.4 g/dl (3.4-5.0); ANION GAP 6 mmol/L (4-13); BLOOD UREA NITROGEN 29.6 mg/dL (7-18); CO2 35 mmol/L (21-32); GLUCOSE,RANDOM 119 mg/dL (74-106)
[2024-07-12 08:56] LABS: CREATININE 0.8 mg/dL (0.55-1.3); SGOT/AST 8 U/L (15-37); SGPT/ALT < 6 U/L (13-61)
[2024-07-12 08:57] LABS: BILIRUBIN,TOTAL 0.7 mg/dL (0.2-1)
[2024-07-12 08:59] LABS: ALK PHOS 60 U/L (45-117)
[2024-07-12] MEDS: ACETAMINOPHEN 1000 MG/100 ML BAG IVPB ONE (22:55)
[2024-07-13 07:30] LABS: BASO % 0.8 % (0-2.0); EOS % 3.7 % (0-4.5); HEMOGLOBIN 11.2 GM/dL (10.7-15.3); LYMPH % 45.2 % (8-40); MCH 28.7 pg (25.7-33.7); MCHC 32.1 g/dl (32.0-36.0); MEAN CELL VOLUME 89.6 fl (80-96); MEAN PLT VOLUME 9.7 fl (7.5-11.1); MONO % 12.5 % (3.8-10.2); NEUT % 37.8 % (42.8-82.8); PLATELET COUNT 181 10^3/uL (134-434); RDW 17.8 % (11.6-15.6); WHITE BLOOD COUNT 9.2 K/mm3 (4.0-10.0)
[2024-07-13 07:35] LABS: POTASSIUM 3.5 mmol/L (3.5-5.1)
[2024-07-13 07:41] LABS: BLOOD UREA NITROGEN 27.8 mg/dL (7-18)
[2024-07-13 07:45] LABS: CREATININE 0.8 mg/dL (0.55-1.3)
[2024-07-13] MEDS ORDERED: ACETAMINOPHEN 650 MG/20.3 ML ORAL SOLUTION (CUPS) PO PRN (13:03)
[2024-07-13] MEDS: ACETAMINOPHEN 1000 MG/100 ML BAG IVPB ONE (13:25)
[2024-07-13] MEDS: morphine SULFATE 4 MG/ML VIAL IVPUSH ONE (18:53)
[2024-07-13] MEDS: MORPHINE SULFATE/0.9% NACL/PF 100 MG/100 ML BAG IVPB SCH (18:55)
[2024-07-13 19:42] VITALS: RESP 18; TEMP 97.7
[2024-07-13] MEDS: LORazepam 2 MG/ML SDV VIAL IVPUSH ONE (21:07)
[2024-07-13] MEDS: MORPHINE 100mg/NS INFUSION 100 MG/100 ML MG IVPB SCH (21:08)
[2024-07-13 23:54] VITALS: BP 139/53; PULSE 79
[2024-07-14] MEDS ORDERED: LORazepam 2 MG/ML SDV VIAL IVPUSH PRN (18:21)
[2024-07-15] MEDS: SCOPOLAMINE HYDROBROMIDE 1 PATCH PATCH.TD72 TD SCH (09:13)
[2024-07-15] MEDS: MORPHINE 100mg/NS INFUSION 100 MG/100 ML MG IVPB SCH (09:19)
[2024-07-16] MEDS: LORazepam 2 MG/ML SDV VIAL IVPUSH PRN (10:01)
== END 2024-07-16 17:29 | disposition expired | DRG 871 ==
LOC: JER 19:39 → JERBED 21:08 → J4S 22:40
PROVIDERS: ADMIT Family Medicine; ATTEND Family Medicine
PROC: 4A10X4Z Monitoring of Central Nervous Electrical Activity, External Approach (ICD-10-PCS; 2024-06-30)
PROC: 0T29X0Z Change Drainage Device in Ureter, External Approach (ICD-10-PCS; 2024-07-08)
PROC: 0T29X0Z Change Drainage Device in Ureter, External Approach (ICD-10-PCS; 2024-07-08)
PROC: 0TJB8ZZ Inspection of Bladder, Via Natural or Artificial Opening Endoscopic (ICD-10-PCS; 2024-07-08)
PROC: BT14ZZZ Fluoroscopy of Kidneys, Ureters and Bladder (ICD-10-PCS; principal; 2024-07-08 07:30)
DX: A41.89 Other specified sepsis (principal); G93.41 Metabolic encephalopathy; J18.9 Pneumonia, unspecified organism; G81.94 Hemiplegia, unspecified affecting left nondominant side; N39.0 Urinary tract infection, site not specified; D68.32 Hemorrhagic disorder due to extrinsic circulating anticoagulants; I13.0 Hypertensive heart and chronic kidney disease with heart failure and stage 1 through stage 4 chronic kidney disease, or unspecified chronic kidney disease; I50.32 Chronic diastolic (congestive) heart failure; N13.30 Unspecified hydronephrosis; N18.9 Chronic kidney disease, unspecified; E11.22 Type 2 diabetes mellitus with diabetic chronic kidney disease; I25.10 Atherosclerotic heart disease of native coronary artery without angina pectoris; I10 Essential (primary) hypertension; I48.91 Unspecified atrial fibrillation; E78.5 Hyperlipidemia, unspecified; N31.9 Neuromuscular dysfunction of bladder, unspecified; G40.901 Epilepsy, unspecified, not intractable, with status epilepticus; E87.6 Hypokalemia; E83.42 Hypomagnesemia; D64.9 Anemia, unspecified; G20.A1 Parkinson's disease without dyskinesia, without mention of fluctuations; R09.02 Hypoxemia; R31.9 Hematuria, unspecified; K59.00 Constipation, unspecified; D25.9 Leiomyoma of uterus, unspecified; N28.1 Cyst of kidney, acquired; E27.8 Other specified disorders of adrenal gland; K44.9 Diaphragmatic hernia without obstruction or gangrene; Z96.0 Presence of urogenital implants; Z96.651 Presence of right artificial knee joint
CPT/HCPCS: 0241U-QW; 36415; 36430; 70450-TC; 71045-TC-FY; 71250-TC; 74176-TC; 76000-TC-FY; 80048; 80053; 80177; 81003; 82272; 82550; 82728; 82803; 82962; 83540; 83550; 83605; 83735; 83880; 84466; 84484; 85025; 85027; 85610; 85730; 86850; 86900; 86901; 86922; 87040; 87070; 87076; 87077; 87086; 87186; 87205; 87899; 88300-TC; 93005; 93010; 94760; 95816; 97116-GP; 97162-GP; 99285-25; C2617; J0131; J1756; P9058